=== PATIENT | female | born 1980 | race Two or more races ===

== ENCOUNTER 2020-02-24 09:50 | Inpatient (IN) | payer OTHER ==
--- NOTE | 2020-02-12 12:05 | NUR ---
INSURANCE A[employer]ER[employer] PRE AUTHORIZATION REFERENCE # [id number] EFFECTIVE DATES 02/24/20-02/26/20 NEXT REVIEW DATE SET FOR 02/25/2020
--- NOTE | 2020-02-23 21:14 | Pre-op HX & Phy Repo 2 SIG ---
DATE OF ADMISSION: 02/25/2020 The patient is scheduled for admission February 24, 2020. HISTORY OF PRESENT ILLNESS: The patient is a 39-year-old female in overall good health with a malfunctioning ileostomy, admitted to undergo preparation for surgery to create a Hernandez type of Kock pouch continent ileostomy. The patient has a past history of ulcerative colitis. In 2005, she underwent proctocolectomy with conventional Carlee ileostomy. She had difficulty managing with her stoma and in December 2015 [place] underwent creation of a Hernandez continent ileostomy. Following two years, she had no issues with her pouch and her routine was to intubate three times a day to evacuate stool and gas. 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 In November 2018, also in [place], her Hernandez continent ileostomy pouch was resected and a conventional ileostomy created. The surgeon made note that there was no evidence of Crohn disease, the pathology reviewed noted no evidence of inflammatory bowel disease. The patient was told and the report notes that she has an abundance of small intestine. She is having difficulties with the current ileostomy which is flushed to the skin and retracted. She has skin irritation, she must control on a daily basis. She must change her appliance at least twice a week. PAST MEDICAL HISTORY/MEDICATIONS: None. ALLERGIES: Morphine, Asacol, sulfa, intravenous and oral iodine. OPERATIONS: In addition to the above, she has had procedures for kidney stones and section. REVIEW OF SYSTEMS: 3, para 3. PHYSICAL EXAMINATION: VITAL SIGNS: The patient is 5 feet 4 inches, 119 pounds. She is arriving from out of state and will be examined upon arrival and dictated separately IMPRESSION: 1. Malfunctioning Carlee ileostomy with retracted stoma. 2. History of ulcerative colitis. 3. STATUS POST MULTIPLE ABDOMINAL OPERATIONS: 3.1. Proctocolectomy and Carlee ileostomy in 2005. 3.2. Hernandez continent ileostomy in December 2015. 3.3. Total abdominal hysterectomy in 2017. 3.4. Repair of pouch vaginal and enterocutaneous fistula with omental flap in September 2018. 3.5. Resection of Hernandez continent ileostomy with recurrent fistula and creation of another conventional Carlee ileostomy in November 17, 2018. (All these operations were done in other states). PLAN AND DISCUSSION: The patient will be admitted and will undergo insertion of a dual lumen PICC line and will have a bowel prep with intravenous hydration. During the prep, she will receive intravenous antibiotics starting the night before surgery and will receive subcutaneous heparin preoperatively. I will have a complete discussion in person with the patient when she arrives from out of state. I have already had a detailed discussion with her including the need to measure her intestinal length to make sure it is adequate to create a new Hernandez pouch in case that pouch fails and needs to be resected. I have had a discussion about all the risks to the general risks of surgery and the specific risks of the Hernandez continent ileostomy operation. She understands and agrees with the plan. Solomon Marcial M.D. DR: MELANY JOB#: [id number] CC:
[~2020-02-24] VITALS: Ht 162.6 cm; Wt 65.2 kg
--- NOTE | 2020-02-24 10:00 | NUR ---
NURSE NOTES: Patient arrived on unit. Assisted to hospital bed. Stable. AOx4. Breathing is even and unlabored. No visible signs of distress noted. Patient oriented to room, call light, and unit. Patient instructed to use call light for assistance, verbalized understanding. Ileo bag intact. Patient is in bed in locked and lowest position with call light within reach. All needs met at this time. WIll continue to monitor.
[2020-02-24] MEDS ORDERED: Heparin1,000 units/500ml Premix(Conc:2 units/ml) IV PRN (10:30)
[2020-02-24] MEDS ORDERED: Lidocaine 1% Plain 30 ml INJ PRN (10:30)
[2020-02-24] MEDS ORDERED: Zolpidem 5mg tab ORAL PRN (10:30)
[2020-02-24 11:14] LABS: INR 0.9 (0.9-1.1)
[2020-02-24 11:24] LABS: BASOPHILS % (AUTO) 0.8 % (0.0-2.0); EOSINOPHILS % (AUTO) 3.1 % (0.0-3.0); HEMOGLOBIN 12.6 G/DL (12.0-16.0); LYMPHOCYTES % (AUTO) 14.5 % (20.0-45.0); MEAN CORPUSCULAR VOLUME 88 FL (80-99); MONOCYTES % (AUTO) 6.5 % (1.0-10.0); NEUTROPHILS % (AUTO) 75.2 % (45.0-75.0); PLATELET COUNT 300 K/UL (150-450); RED BLOOD COUNT 4.34 M/UL (4.20-5.40); RED CELL DISTRIBUTION WIDTH 12.5 % (11.6-14.8); WHITE BLOOD COUNT 8.2 K/UL (4.8-10.8)
[2020-02-24 11:41] LABS: APPEARANCE,URINE CLEAR; BILIRUBIN, URINE NEGATIVE (NEGATIVE); GLUCOSE, URINE (UA) NEGATIVE (NEGATIVE); KETONES,URINE NEGATIVE (NEGATIVE); LEUKOCYTE ESTERASE ,URINE 2+ (NEGATIVE); NITRITE,URINE NEGATIVE (NEGATIVE); PH,URINE 5 (4.5-8.0); PROTEIN,URINE NEGATIVE (NEGATIVE); UROBILINOGEN,URINE NORMAL MG/DL (0.0-1.0)
[2020-02-24 11:48] LABS: ANION GAP 8 mmol/L (5-15); BLOOD UREA NITROGEN 18 mg/dL (7-18); CALCIUM 8.7 MG/DL (8.5-10.1); CARBON DIOXIDE 26 MMOL/L (21-32); CHLORIDE 105 MMOL/L (98-107); CREATININE 0.6 MG/DL (0.55-1.30); POTASSIUM 3.8 MMOL/L (3.5-5.1); SODIUM 139 MMOL/L (136-145)
[2020-02-24 11:53] LABS: ALANINE AMINOTRANSFERASE 17 U/L (12-78); ALBUMIN 4.1 G/DL (3.4-5.0); ALBUMIN/GLOBULIN RATIO 1.3 (1.0-2.7); ALKALINE PHOSPHATASE 91 U/L (46-116); ASPARTATE AMINO TRANSFERASE 18 U/L (15-37); BILIRUBIN,TOTAL 0.2 MG/DL (0.2-1.0)
[2020-02-24 12:00] VITALS: BP 98/67
[2020-02-24 12:01] LABS: COLOR,URINE YELLOW
[2020-02-24] MEDS: Neomycin Sulfate 500mg Tab ORAL SCH ×3 (12:02→20:18)
--- NOTE | 2020-02-24 12:06 | Anethesia Preoperative Eval ---
Anesthesia Pre-op PMH/ROS General Date of Evaluation: Feb 24, 2020 Time of Evaluation: 12:05 Anesthesiologist: mandy ASA Score: ASA 2 Mallampati Score Class I : Soft palate, uvula, fauces, pillars visible Class II: Soft palate, uvula, fauces visible Class III: Soft palate, base of uvula visible Class IV: Only hard plate visible Mallampati Classification: Class II Surgeon: jamila Diagnosis: Malfuctioning ileostomy Surgical Procedure: Hernandez continent ileostomy Family History: no anesthesia problems Allergies: Coded Allergies: IODINATED CONTRAST MEDIA (Verified Allergy, Severe, Shortness of Breath, 02/24/20) IODINE (Verified Allergy, Severe, Shortness of Breath, 02/24/20) MORPHINE (Verified Allergy, Intermediate, Hives, 02/24/20) SULFASALAZINE (Verified Allergy, Intermediate, Hives, 02/24/20) MESALAMINE (Verified Adverse Reaction, Mild, headache , 02/24/20) Medications: see eMAR Patient NPO?: Yes NPO Date: Feb 24, 2020 NPO Time: 00:01 Past Medical History Cardiovascular: Denies: HTN, CAD, PA, valve dz, arrhythmia, other Pulmonary: Denies: asthma, COPD, STEPHAN, other Gastrointestinal/Genitourinary: Reports: other - u. colitis; Denies: GERD, CRI, ESRD Neurologic/Psychiatric: Denies: dementia, CVA, depression/anxiety, TIA, other Endocrine: Denies: DM, hypothyroidism, steroids, other HEENT: Denies: cataract (L), cataract (R), glaucoma, [place] (L), [place] (R), other Hematology/Immune: Denies: anemia, DVT, bleeding disorder, other Musculoskeletal/Integumentary: Denies: OA, RA, DJD, DDD, edema, other PMH Narrative: 1. Malfunctioning Carlee ileostomy with retracted stoma. 2. History of ulcerative colitis. 3. STATUS POST MULTIPLE ABDOMINAL OPERATIONS: 3.1. Proctocolectomy and Carlee ileostomy in 2005. 3.2. Hernandez continent ileostomy in December 2015. 3.3. Total abdominal hysterectomy in 2017. 3.4. Repair of pouch vaginal and enterocutaneous fistula with omental flap in September 2018. 3.5. Resection of Hernandez continent ileostomy with recurrent fistula and creation of another conventional Carlee ileostomy in November 17, 2018. Anesthesia Pre-op Phys. Exam Physician Exam Last Vital Signs Date Time Temp Pulse Resp B/P (MAP) Pulse Ox O2 Delivery O2 Flow Rate FiO2 02/24/20 09:58 Room Air Constitutional: NAD Neurologic: CN 2-12 intact Cardiovascular: RRR Respiratory: CTA Gastrointestinal: S/NT/ND Airway Exam Mallampati Classification 2 Mallampati Score: Class II ROM: full Dentures: no upper, no lower Anesthesia Pre-op A/P Labs Hematology Test 02/24/20 10:40 White Blood Count 8.2 K/UL (4.8-10.8) Red Blood Count 4.34 M/UL (4.20-5.40) Hemoglobin 12.6 G/DL (12.0-16.0) Hematocrit 38.0 % (37.0-47.0) Mean Corpuscular Volume 88 FL (80-99) Mean Corpuscular Hemoglobin 29.0 PG (27.0-31.0) Mean Corpuscular Hemoglobin Concent 33.1 G/DL (32.0-36.0) Red Cell Distribution Width 12.5 % (11.6-14.8) Platelet Count 300 K/UL (150-450) Mean Platelet Volume 6.8 FL (6.5-10.1) Neutrophils (%) (Auto) 75.2 % (45.0-75.0) H Lymphocytes (%) (Auto) 14.5 % (20.0-45.0) L Monocytes (%) (Auto) 6.5 % (1.0-10.0) Eosinophils (%) (Auto) 3.1 % (0.0-3.0) H Basophils (%) (Auto) 0.8 % (0.0-2.0) Coagulation Test 02/24/20 10:40 Prothrombin Time 10.1 SEC (9.30-11.50) Prothromb Time International Ratio 0.9 (0.9-1.1) Activated Partial Thromboplast Time 25 SEC (23-33) Chemistry Test 02/24/20 10:40 Sodium Level 139 MMOL/L (136-145) Potassium Level 3.8 MMOL/L (3.5-5.1) Chloride Level 105 MMOL/L (98-107) Carbon Dioxide Level 26 MMOL/L (21-32) Anion Gap 8 mmol/L (5-15) Blood Urea Nitrogen 18 mg/dL (7-18) Creatinine 0.6 MG/DL (0.55-1.30) Estimat Glomerular Filtration Rate > 60 mL/min (>60) Glucose Level 95 MG/DL (74-106) Calcium Level 8.7 MG/DL (8.5-10.1) Total Bilirubin 0.2 MG/DL (0.2-1.0) Aspartate Amino Transf (AST/SGOT) 18 U/L (15-37) Alanine Aminotransferase (ALT/SGPT) 17 U/L (12-78) Alkaline Phosphatase 91 U/L (46-116) Total Protein 7.3 G/DL (6.4-8.2) Albumin 4.1 G/DL (3.4-5.0) Globulin 3.2 g/dL Albumin/Globulin Ratio 1.3 (1.0-2.7) Studies Pre-op Studies: EKG - SR Risk Assessment & Plan Assessment: Reassess patient the day of surgery Plan: General Status Change Before Surgery: No Pre-Antibiotics Drug: see chart Arminda Ziegler SERVICE TRANSFORMER REPAIR SUPERVISOR Feb 24, 2020 12:06
--- NOTE | 2020-02-24 12:08 | NUR ---
RADIOLOGY DEPT., CHEST X-RAY DONE.-P.DYE
--- NOTE | 2020-02-24 14:59 | General Progress Note ---
Progress Note Progress Note H&P dictated. Full discussion with patient regarding her surgery, possibility that new BCIR may not be possible in which case revision of existing ileostomy will be performed All questions answered. Solomon Marcial MD Feb 24, 2020 14:59
--- NOTE | 2020-02-24 15:16 | Diagnostic Imaging Report ---
Indication: Cough. Preoperative Technique: Portable frontal view of the chest Comparison: None Findings: Heart size and mediastinal contours are within normal limits for AP technique. There is no focal airspace consolidation, pneumothorax or pleural effusion. Osseous structures demonstrate no acute abnormality. Impression: No radiographic evidence of acute cardiopulmonary disease.
--- NOTE | 2020-02-24 15:22 | NUR ---
NURSE NOTES: Patient taken down for PICC placement.
--- NOTE | 2020-02-24 15:52 | Pre-Procedure Note/Attestation ---
Pre-Procedure Note/Attestation Complete Prior to Procedure Planned Procedure: not applicable Procedure Narrative: PICC line placement Indications for Procedure Pre-Operative Diagnosis: need iv access Attestation I attest that I discussed the nature of the procedure; its benefits; risks and complications; and alternatives (and the risks and benefits of such alternatives), prior to the procedure, with the patient (or the patient's legal pharmaceutical sales representative). I attest that I re-evaluated the patient just prior to the surgery and that there has been no change in the patient's H&P, except as documented below: Christopher Jefferson M.D. Feb 24, 2020 15:52
[2020-02-24 16:00] VITALS: BP 106/70
--- NOTE | 2020-02-24 16:13 | Diagnostic Imaging Report ---
Indications: Needs long-term IV access Technique: Ultrasound confirms patent compressible left basilic vein. Total sterile technique, including sterile probe cover and sterile gel, hat, mask,, sterile gown, large sterile drape, and preparation with 2% chlorhexidine utilized. Local anesthesia with 1% lidocaine. Under real-time ultrasound guidance, puncture left basilic vein using 21-gauge needle, documented and archived, passage 0.018 guidewire under direct fluoroscopy, which was used to determine appropriate catheter length, exchange for 4.5 [place] peel-away sheath. 4French dual-lumen power PICC cut to 40 cm. It was inserted through the peel-away sheath. Peel-away sheath and guidewire removed. Catheter fixed to the skin. Both catheter ports aspirated and flushed. Patient tolerated procedure well, without immediate complication. Digital radiograph documents satisfactory catheter tip position, at the cavoatrial junction. Total fluoroscopy time 5.9 seconds. Total fluoroscopy dose dose, 0.5. mGy. Total number fluoroscopic images obtained: 1 Impression: Successful placement of PICC under sonographic and fluoroscopic guidance, as described above. PICC line cleared for use.
--- NOTE | 2020-02-24 16:15 | Pre-op HX & Phy Repo 2 SIG ---
DATE OF ADMISSION: 02/24/2020 Please see previously dictated history. The patient has now arrived from out of state and is examined. PHYSICAL EXAMINATION: GENERAL: She is well developed and well nourished, 5 feet 4 inches, approximately 120 pounds. VITAL SIGNS: Within normal limits. HEENT: Within normal limits. LUNGS: Clear. HEART: Regular rhythm. BREASTS: Without masses. ABDOMEN: Soft. There is a midline scar from above the umbilicus to the pubis and a transverse suprapubic scar from section surgery. Her ileostomy stoma is in the upper portion of the right lower quadrant and is nearly flush to the skin having retracted. PELVIC: Done by primary care status post hysterectomy. RECTAL: Status post proctectomy. EXTREMITIES: Without edema. Pulses 2+ femoral to pedal bilaterally. NEUROLOGIC: Physiologic. IMPRESSION: 1. Malfunctioning Carlee ileostomy. 2. History of ulcerative colitis. 3. Status post multiple abdominal operations. 3.1. Proctocolectomy and Carlee ileostomy in 2005. 3.2. Hernandez continent ileostomy in 2015. 3.3. Total abdominal hysterectomy in 2017. 3.4. Repair of Hernandez pouch vaginal and enterocutaneous fistula with omental flap in September 2018. 3.5. Resection of Hernandez continent ileostomy due to recurrent fistula with creation of conventional Carlee ileostomy on 11/17/2018 (all these operations were done in other states). PLAN: I have had a full discussion with the patient regarding the nature of her condition, the nature of the surgery, indications, alternatives, options, and risks. I have discussed the primary option. It is to convert her malfunctioning retracted conventional ileostomy to a Hernandez type of Kock pouch continent ileostomy as it seems that from review of records, her problems developed after hysterectomy, and there has been no sign of Crohn's disease. I have discussed the potential that we will not be able to create a Hernandez pouch if she does not have adequate length of small bowel or if we do in fact encounter diseased small bowel. If that is the case, we will do a revision of her ileostomy to treat the retraction of the stoma. I have had a discussion of the general risks of surgery including bleeding, infection, injury to adjacent structures or organs, deep vein thrombosis despite prophylaxis, hernias, etc. And I have discussed the specific risks of the Hernandez pouch including the risk of fistulous, slipped valve, or other issues that could lead to revisions or additional surgery. All questions have been answered. The patient understands and agrees to proceed. Don Emily Marcial DR: FRANCIE JOB#: [id number] CC:
--- NOTE | 2020-02-24 16:30 | NUR ---
NURSE NOTES: PICC noted on ASHKAN, patent and flushed with NS. Dressing c/d/i.
--- NOTE | 2020-02-24 17:39 | NUR ---
RADIOLOGY NOTE: LEFT UPPER EXTREMITY PICC LINE PLACEMENT PLACEMENT BY DR. BEATRIS LIRIANO AT 1535 HRS. FA
[2020-02-24] MEDS: D5 1/2NS w/KCl 20mEq 1,000 ML IV SCH (17:40)
--- NOTE | 2020-02-24 19:30 | NUR ---
NURSE HAND-OFF: Important Events on Shift:picc insertion, hydration Patient Status: stable Diet: clear liquid, npo midnight tonight Pending Orders: n/a Pending Results/Labs:n/a Pending MD notification:n/a Latest Vital Signs: Temperature 97.8 , Pulse 75 , B/P 106 /70 , Respiratory Rate 20 , O2 SAT 98 , , O2 Flow Rate . Vital Sign Comment: n/a Latest Bray Fall Score: 15 Fall Risk: Low Risk Safety Measures: Call light Within Reach, Side Rails x2, Bed position Low and Locked. Fall Precautions: Report given to Caprice CASTANON.
--- NOTE | 2020-02-24 19:31 | NUR ---
NURSE NOTES: Received patient in no apparent distress. A&OX4. PICC line noted on left upper arm, patent and intact. Remind NPO midnight, patient fully understood. Daughter at bedside. Bed in lowest position. Call light within reach. Will continue to monitor.
[2020-02-24 20:00] VITALS: BP 108/70
[2020-02-24] MEDS: Dyna-Hex 2% Top Sol 2oz TOPIC SCH (20:19)
[2020-02-24] MEDS: Ampicillin/Sulbactam Sod 3 GM in NS 110 ML IVPB SCH (23:49)
[2020-02-25] VITALS (18 sets, daily range): BP systolic 81–111; BP diastolic 46–68
[2020-02-25] MEDS: D5 1/2NS w/KCl 20mEq 1,000 ML IV SCH ×3 (03:59→22:45)
[2020-02-25] MEDS ORDERED: Heparin 5000 units/ml inj SUBQ SCH (05:30)
[2020-02-25] MEDS: Ampicillin/Sulbactam Sod 3 GM in NS 110 ML IVPB SCH (05:36)
--- NOTE | 2020-02-25 06:15 | NUR ---
NURSE Note: Important Events on Shift: Nausea, after took oral antibiotic medication, Zofran was given twice. Urine output: 1400ml/ Stool output: 500ml kept NPO from midnight, No c/o pain. Patient Status: stable Diet: NPO Latest Vital Signs: Temperature 97.8 , Pulse 72 , B/P 98 /60 , Respiratory Rate 18 , O2 SAT 97 , Room Air, O2 Flow Rate . Vital Sign Comment: Latest Bray Fall Score: 15 Fall Risk: Low Risk Safety Measures: Call light Within Reach, Bed Alarm Zone 1, Side Rails Side Rails x2, Bed position Low and Locked. Fall Precautions: Patient Fall Education
[2020-02-25 06:42] LABS: BASOPHILS % (AUTO) 0.8 % (0.0-2.0); HEMATOCRIT 35.1 % (37.0-47.0); HEMOGLOBIN 11.7 G/DL (12.0-16.0); LYMPHOCYTES % (AUTO) 18.2 % (20.0-45.0); MEAN CORPUSCULAR VOLUME 85 FL (80-99); MONOCYTES % (AUTO) 5.9 % (1.0-10.0); NEUTROPHILS % (AUTO) 73.1 % (45.0-75.0); PLATELET COUNT 246 K/UL (150-450); RED BLOOD COUNT 4.12 M/UL (4.20-5.40); RED CELL DISTRIBUTION WIDTH 11.8 % (11.6-14.8); WHITE BLOOD COUNT 10.4 K/UL (4.8-10.8)
[2020-02-25] MEDS ORDERED: LR 1000ml 1,000 ML IVLG SCH (07:00)
[2020-02-25] MEDS ORDERED: Atropine Sulfate 0.4mg/ml inj IVP PRN (07:00)
[2020-02-25] MEDS ORDERED: DiphenhydrAMINE 50mg/ml Inj IVP PRN ×2 (07:00→10:15)
[2020-02-25] MEDS ORDERED: Acetaminophen (Non formulary) 100 ML IV ONE (07:00)
[2020-02-25] MEDS ORDERED: LORazepam Inj 2mg/ml 1ml IV PRN (07:00)
[2020-02-25] MEDS ORDERED: Labetalol 5mg/ml 20ml vial IV PRN (07:00)
[2020-02-25] MEDS ORDERED: Midazolam 2mg/2ml Inj IVP PRN (07:00)
[2020-02-25] MEDS ORDERED: Meperidine 25mg/0.5ml Inj (FOR RIGORS ONLY) IV PRN (07:00)
[2020-02-25] MEDS ORDERED: fentaNYL 100 mcg/2 mL IV PRN (07:00)
[2020-02-25] MEDS ORDERED: Metoclopramide 10mg/2ml Inj IVP PRN (07:00)
[2020-02-25 07:06] LABS: ALANINE AMINOTRANSFERASE 19 U/L (12-78); ALBUMIN 3.4 G/DL (3.4-5.0); ALBUMIN/GLOBULIN RATIO 1.1 (1.0-2.7); ALKALINE PHOSPHATASE 81 U/L (46-116); ANION GAP 11 mmol/L (5-15); ASPARTATE AMINO TRANSFERASE 20 U/L (15-37); BILIRUBIN,TOTAL 0.3 MG/DL (0.2-1.0); BLOOD UREA NITROGEN 7 mg/dL (7-18); CALCIUM 8.1 MG/DL (8.5-10.1); CARBON DIOXIDE 25 MMOL/L (21-32); CHLORIDE 107 MMOL/L (98-107); CREATININE 0.6 MG/DL (0.55-1.30); SODIUM 142 MMOL/L (136-145)
--- NOTE | 2020-02-25 07:06 | Immediate Post-Op Evaluation ---
Immediate Post-Op Evalulation Immediate Post-Op Evalulation Procedure: Revision of Continent Ileostomy Date of Evaluation: Feb 25, 2020 Time of Evaluation: 10:25 IV Fluids: 700 LR Blood Products: 0 Estimated Blood Loss: 40 Urinary Output: 200 Blood Pressure Systolic: 90 Blood Pressure Diastolic: 50 Pulse Rate: 74 Respiratory Rate: 16 O2 Sat by Pulse Oximetry: 100 Temperature (Fahrenheit): 97.3 Pain Score (1-10): 2 Nausea: No Vomiting: No Complications 0 Patient Status: awake, reacts, patent, none Hydration Status: adequate Drug: See Floor Given Within 1 Hr of Incision: Yes Tony Little MD Feb 25, 2020 07:06
[2020-02-25] MEDS ORDERED: Lidocaine 1% MPF 10mg/ml 5ml ONE ×2 (07:14→09:23)
[2020-02-25] MEDS ORDERED: Lidocaine 1% Plain 30 ml INJ ONE (07:14)
[2020-02-25] MEDS ORDERED: Sodium Chloride 10ml vial INJ ONE (07:14)
[2020-02-25] MEDS ORDERED: fentaNYL 100 mcg/2 mL IV ONE (07:15)
[2020-02-25] MEDS ORDERED: Bacitracin 50000 Units Vial ONE (07:17)
[2020-02-25] MEDS ORDERED: NeoSporin Gu Irrig 1ml Amp IRRIG ONE (07:17)
--- NOTE | 2020-02-25 07:17 | Pre-Procedure Note/Attestation ---
Pre-Procedure Note/Attestation Complete Prior to Procedure Planned Procedure: not applicable Procedure Narrative: Hernandez continent ileostomy, gastrostomy, possible revision of Carlee ileostomy Indications for Procedure Pre-Operative Diagnosis: malfunctioning Carlee ileostomy Attestation I attest that I discussed the nature of the procedure; its benefits; risks and complications; and alternatives (and the risks and benefits of such alternatives), prior to the procedure, with the patient (or the patient's legal account representative). I attest that, if there was a reasonable possibility of needing a blood transfusion, the patient (or the patient's legal account representative) was given the [facility] standardized written summary, pursuant to the [place] Blood Safety Act ([place] Health and Safety Code # 1645, as amended). I attest that I re-evaluated the patient just prior to the surgery and that there has been no change in the patient's H&P, except as documented below: none Solomon Marcial MD Feb 25, 2020 07:17
[2020-02-25] MEDS ORDERED: Rocuronium Bromide 50mg/5ml Inj IV ONE (07:25)
--- NOTE | 2020-02-25 07:30 | NUR ---
HAND-OFF: Report given to Ilana CASTANON.
--- NOTE | 2020-02-25 07:30 | NUR ---
NURSE NOTES: Patient is off unit.
[2020-02-25] MEDS ORDERED: NS Irrig 1000ml IRRIG ONE (08:02)
[2020-02-25] MEDS ORDERED: Neostigmine 1mg/ml 10ml Inj ONE (08:59)
[2020-02-25] MEDS ORDERED: Glycopyrrolate 0.2mg/ml 1ml Vial ONE (08:59)
[2020-02-25] MEDS ORDERED: Phenylephrine 10mg/ml Vial ONE (09:00)
[2020-02-25] MEDS ORDERED: Naloxone 0.4mg/ml Inj ONE (09:51)
[2020-02-25] MEDS ORDERED: D5 1/4NS w/KCl 20mEq 1,000 ML IV SCH (10:15)
[2020-02-25] MEDS ORDERED: LORazepam 1mg tab SL PRN (10:15)
[2020-02-25] MEDS ORDERED: Rate Change PCA 1 Each MISC PRN (10:15)
--- NOTE | 2020-02-25 10:20 | Brief Operative Note ---
Immediate Post Operative Note Operative Note Pre-op Diagnosis: malfunctioning Carlee ileostomy Procedure: same plus shortened small intestine (11 feet) Post-op Diagnosis: same Post-op Diagnosis: same as pre-op Findings: consistent w/pre-op dx studies Surgeon: jamila Additional Surgeons: marsha Anesthesiologist: juanito Anesthesia: general Specimen: yes - ileostomy, omentum, stoma hernia sac Complications: none Condition: stable Fluids: see anesthesia record Estimated Blood Loss: minimal Drains: JANAY Implant(s) used?: No Solomon Marcial MD Feb 25, 2020 10:20
--- NOTE | 2020-02-25 11:14 | Operative Note - Dictated ---
DATE OF OPERATION: 02/25/2020 SURGEON: Solomon Marcial MD ADDITIONAL SURGEON: Chance Horton MD ANESTHESIOLOGIST: Tony Little MD TYPE OF ANESTHESIA: General endotracheal. PREOPERATIVE DIAGNOSES: 1. Malfunctioning Carlee ileostomy with retracted stoma and parastomal hernia. 2. History of ulcerative colitis. 3. STATUS POST MULTIPLE ABDOMINAL OPERATIONS: 3.1. Proctocolectomy and Carlee ileostomy in 2005. 3.2. Hernandez continent ileostomy in December 2015. 3.3. Total abdominal hysterectomy in 2017. 3.4. Repair of pouch vaginal and pouch enterocutaneous fistula with omental flap in September 2018. 3.5. Resection of Hernandez continent ileostomy with recurrent fistula and creation of a conventional Carlee ileostomy on November 17, 2018. (All these operations were done in other states). POSTOPERATIVE DIAGNOSES: 1. Malfunctioning Carele ileostomy with retracted stoma and parastomal hernia. 2. History of ulcerative colitis. 3. STATUS POST MULTIPLE ABDOMINAL OPERATIONS: 3.1. Proctocolectomy and Carlee ileostomy in 2005. 3.2. Hernandez continent ileostomy in December 2015. 3.3. Total abdominal hysterectomy in 2017. 3.4. Repair of pouch vaginal and pouch enterocutaneous fistula with omental flap in September 2018. 3.5. Resection of Hernandez continent ileostomy with recurrent fistula and creation of a conventional Carlee ileostomy on November 17, 2018. (All these operations were done in other states). OPERATION PERFORMED: Laparotomy with revision of ileostomy and evacuation of loculated pelvic cysts, resection of omentum, and repair of parastomal hernia. FINDINGS: The patient had only 11 feet of small intestine when measured from ligament of Treitz to the stoma after taking down all the interloop adhesions. I felt this was not sufficient. If her new continent ileostomy pouch failed, she might develop by a partial or complete short-bowel syndrome. I had discussed this with the patient in advance. DESCRIPTION OF OPERATION: The patient was placed in the operating room under general endotracheal anesthesia with sequential compression device stockings and Roman catheter in place and having received preoperative intravenous antibiotics and subcutaneous heparin. She was prepped and draped in usual fashion. Previous midline incision was reopened from above the umbilicus to the pubis. There were minimal adhesions to the anterior abdominal wall. There were moderate interloop adhesions. The omentum was adherent deeply into the pelvis and there were 2 loculated cysts, one contained over 50 mL of fluid, the cyst was completely taken down, and the other one was smaller and also evacuated. The patient's ovaries were normal. She is status post hysterectomy. The omentum was taken down off of the pelvic floor and resected using the Thunderbeat vessel sealing electrosurgical device. I measured the bowel from the ligament of Treitz to the stoma and then backwards measuring twice with a maximum bowel length under stretch of 11 feet. This was not adequate to create a new continent ileostomy. The stoma was dismantled on the right side of the abdomen and the old stoma resected and some of the mesentery taken for several centimeters from the new bowel edge with the Thunderbeat. I considered relocating the stoma to the left side, but I was able to strip out the hernia sac, close the fascia and narrow the skin orifice. We then brought back the end of the ileum and created an everted stoma with multiple interrupted 3-0 chromic sutures. The patency was confirmed with digital palpation and pool suction. The stoma was well perfused. The abdomen was inspected. The bladder and ureters had been protected. The pelvis was irrigated and hemostasis seemed to be secure. The bowel loops were replaced anatomically. The midline incision was closed with #1 looped PDS, antibiotic irrigation utilized, and the skin closed with quan. A 1-1/4 inch ileostomy appliance was placed over the stoma followed by dry sterile dressings. I did insert a 19 mm round Yossi drain through a stab incision low in the left lower quadrant into the deep pelvis to help prevent loculated cysts from developing again. That drain was sutured to the skin with 2-0 nylon. The patient tolerated the procedure well and left the operating room in good condition. Solomon Marcial M.D. DR: Rick JOB#: [id number] CC:
[2020-02-25] MEDS ORDERED: Metoclopramide 10mg/2ml Inj ONE (11:16)
[2020-02-25] MEDS ORDERED: PCA HYDROmorphone 1mg/ml 30 ML IV PRN (11:30)
[2020-02-25] MEDS ORDERED: Naloxone 0.4mg/ml Inj IVP PRN (11:30)
--- NOTE | 2020-02-25 11:45 | NUR ---
NURSE NOTES: Patient arrived on unit. Stable, arousable to verbal stimuli. Breathing is even and unlabored on 3L oxygen via nc. No visible signs of distress noted. Surgical dressing c/d/i. PICC patent and running IVF and QUALITATIVE FIELD COORDINATOR. JANAY compressed and draining red output. Ileostomy bag intact. F/C patent and draining yellow urine. Patient is oriented to room, call light, and unit. Patient instructed to use call light for assistance, verbalized understanding. All safety measures provided. Patient is in bed in locked and lowest position with call light within reach and trapeze overhead. Will continue to monitor.
[2020-02-25] MEDS: Ampicillin/Sulbactam Sod 3 GM in NS 110 ML IV SCH ×3 (12:06→23:59)
[2020-02-25] MEDS ORDERED: NS 500ML ONE (13:44)
[2020-02-25] MEDS ORDERED: Tubing IV Secondary IV ONE (13:44)
--- NOTE | 2020-02-25 13:53 | NUR ---
CASE MANAGEMENT: INITIAL REVIEW 39YR OLD FEMALE FROM HOME CC:COLOSTOMY MALFUNCTION; UNABLE TO EVACUATE STOOL SI:MALFUNCTIONING WILLIAM ILEOSTOMY . FISTULA 97.8 72 18 98/60 97% ON RA IS:IV FLAGYL Q6HR IV AMPICILLIN Q6HR HEPARIN SQ X1 PICC LINE PLACEMENT CHEST X-RAY- No radiographic evidence of acute cardiopulmonary disease. \: 3E MED SURG UNIT DCP: HOME WHEN STABLE PLAN: NPO CONT ENCOURAGE INCENTIVE SPIROMETER NEURO CHECKS DVT PROPHYLAXIS ENCOURAGE AMBULATION CASE MANAGEMENT: REVIEW 02/25/20 SI:MALFUNCTIONING WILLIAM ILEOSTOMY . FISTULA 97.6 87 18 98/53 100% ON RA IS:IN SURGERY NOW REVISION OF CONTINENT ILEOSTOMY \: 3E MED SURG UNIT DCP: HOME WHEN STABLE PLAN: NPO ADVANCE DIET TOLERATED CONT ENCOURAGE INCENTIVE SPIROMETER NEURO CHECKS DVT PROPHYLAXIS ENCOURAGE AMBULATION
--- NOTE | 2020-02-25 14:22 | NUR ---
*-* INSURANCE *-* UPDATED CLINICALS AND REVIEWS HAVE BEEN FAXED TO: [facility] FAX:[phone] REF# [id number] Addendum: 02/25/20 at 1425 by MAX SHAFFER LVN CM LEFT A VM FOR LASHELL TO CONFIRM FAX RECEIVED T:[phone] EXT [id number]
--- NOTE | 2020-02-25 18:52 | NUR ---
NURSE NOTES: Ileo: approximately 5cc bloody output. UO: 300cc yellow/reuben urine output. JANAY: 105cc bloody output. Patient is comfortable on DIESEL ENGINE PIPE FITTER and with nausea medication. Surgical dressing c/d/i.
[2020-02-25] MEDS: PCA shift volume MISC SCH (19:00)
--- NOTE | 2020-02-25 19:37 | NUR ---
NURSE HAND-OFF: Important Events on Shift:s/p surgery Patient Status: stable Diet: npo Pending Orders: n/a Pending Results/Labs:am labs Pending MD notification:n/a Latest Vital Signs: Temperature 97.0 , Pulse 80 , B/P 91 /61 , Respiratory Rate 16 , O2 SAT 100 , Room Air, O2 Flow Rate 3 . Vital Sign Comment: n/a Latest Bray Fall Score: 15 Fall Risk: Low Risk Safety Measures: Call light Within Reach, Bed Alarm Zone 1, Side Rails Side Rails x2, Bed position Low and Locked. Fall Precautions: Patient Fall Education Report given to Tash CASTANON.
--- NOTE | 2020-02-25 19:56 | NUR ---
NURSES NOTE: Pt in bed, A/OX4, denies pain currently. No outward s/s of distress noted. Breathing pattern is even and unlabored on NC 3L. BUILDING CARPENTER HELPER pump Dilaudid- effective. RLQ ileo bag in place. Roman in place, draining to gravity. JANAY drain engaged. Dressing anterior abdominal area, clean, dry and intact. ASHKAN PICC line free of s/s of infection or irritation. IVF fluids draining without incident. Bed at lowest level, call light within reach. Pt will continue to be monitored.
[2020-02-25] MEDS ORDERED: PCA Education Pamphlet MISC ONE (20:00)
[2020-02-25] MEDS: Dyna-Hex 2% Top Sol 2oz TOPIC SCH (20:42)
[2020-02-25] MEDS: LORazepam 1mg tab SL PRN ×2 (22:21→23:07)
[2020-02-26] VITALS: BP 98/60
[2020-02-26] MEDS: HYDROmorphone 1mg/ml Carpuject SUBQ PRN ×2 (00:04→20:03)
[2020-02-26 04:00] VITALS: BP 100/66
[2020-02-26] MEDS: Ampicillin/Sulbactam Sod 3 GM in NS 110 ML IV SCH ×3 (05:33→17:08)
[2020-02-26 06:27] LABS: HEMATOCRIT 33.2 % (37.0-47.0); HEMOGLOBIN 11.1 G/DL (12.0-16.0); MEAN CORPUSCULAR VOLUME 84 FL (80-99); PLATELET COUNT 222 K/UL (150-450); RED BLOOD COUNT 3.95 M/UL (4.20-5.40); RED CELL DISTRIBUTION WIDTH 11.8 % (11.6-14.8)
[2020-02-26 06:29] LABS: ANION GAP 4 mmol/L (5-15); BLOOD UREA NITROGEN 5 mg/dL (7-18); CALCIUM 7.8 MG/DL (8.5-10.1); CARBON DIOXIDE 28 MMOL/L (21-32); CHLORIDE 105 MMOL/L (98-107); CREATININE 0.5 MG/DL (0.55-1.30); POTASSIUM 4.4 MMOL/L (3.5-5.1); SODIUM 137 MMOL/L (136-145)
[2020-02-26 06:30] LABS: WHITE BLOOD COUNT 23.1 K/UL (4.8-10.8)
--- NOTE | 2020-02-26 07:15 | NUR ---
NURSE HAND-OFF: Important Events on Shift:[WBC 22.3. Davie blood twice. First through PICC, then venipuncture. Oncoming nurse made aware as well as charge. Will let Schiller know upon arrival. ] Patient Status: [STABLE] Diet: [NPO] Pending Orders: [NONE] Pending Results/Labs:[NONE] Pending MD notification:[YES, WBC] Latest Vital Signs: Temperature 97.7 , Pulse 80 , B/P 100 /66 , Respiratory Rate 18 , O2 SAT 98 , Nasal Cannula, O2 Flow Rate 3.0 . Vital Sign Comment: [Within normal limits; afebrile] Latest Bray Fall Score: 15 Fall Risk: Low Risk Safety Measures: Call light Within Reach, Bed Alarm Zone 1, Side Rails Side Rails x2, Bed position Low and Locked. Fall Precautions: Patient Fall Education Report given to [LG Preciado].
[2020-02-26 07:22] LABS: HEMATOCRIT 35.5 % (37.0-47.0); MEAN CORPUSCULAR VOLUME 84 FL (80-99); PLATELET COUNT 262 K/UL (150-450); RED BLOOD COUNT 4.21 M/UL (4.20-5.40); RED CELL DISTRIBUTION WIDTH 11.7 % (11.6-14.8)
[2020-02-26] MEDS: PCA shift volume MISC SCH ×2 (07:22→19:10)
--- NOTE | 2020-02-26 07:27 | NUR ---
NURSE NOTES: Patient is in bed awake and able to verbalize needs. Stable. Denies pain or SOB at this time. Breathing is even and unlabored on 2L oxygen via NC. PICC patent and running IVF and IN FLIGHT REFUELING OPERATOR as ordered. Patient stated IN FLIGHT REFUELING OPERATOR is helping control pain. F/C patent and draining yellow urine. JANAY compressed and draining bloody output. Patient instructed to use call light for assistance, verbalized understanding. All safety measures provided, trapeze overhead. Patient is in bed in locked and lowest position with call light within reach. All needs met at this time. Will continue to monitor.r.
[2020-02-26 07:28] LABS: WHITE BLOOD COUNT 22.3 K/UL (4.8-10.8)
[2020-02-26 08:00] VITALS: BP 105/64
--- NOTE | 2020-02-26 08:16 | General Progress Note ---
Progress Note Progress Note AVSS comfortable with diluadid PASTRY WRAPPER. Chest clear cor reg rhythm Abdomen soft, mild distention, incision clean, stoma pink 12 hours overnight: urine 700 Ileostomy - nil JANAY 20cc WBC 22,300 Hgb 12 BUN 5 Cr 0.5 Imp: Ileus Plan; NPO mobilize f/u labs Solomon Marcial MD Feb 26, 2020 08:16
[2020-02-26] MEDS ORDERED: Rate Change PCA 1 Each MISC PRN (08:30)
[2020-02-26] MEDS ORDERED: PCA HYDROmorphone 1mg/ml 30 ML IV PRN (08:30)
[2020-02-26] MEDS ORDERED: Naloxone 0.4mg/ml Inj IVP PRN (08:30)
--- NOTE | 2020-02-26 08:48 | 48 Hour Post Anesthesia Eval ---
Post Anesthesia Evaluation Procedure: Revision of Continent Ileostomy Date of Evaluation: Feb 26, 2020 Time of Evaluation: 08:47 Blood Pressure Systolic: 105 0: 64 Pulse Rate: 85 Respiratory Rate: 17 Temperature (Fahrenheit): 97.5 O2 Sat by Pulse Oximetry: 98 Airway: patent Nausea: No Vomiting: No Pain Intensity: 2 Hydration Status: adequate Cardiopulmonary Status: Stable Mental Status/LOC: patient returned to baseline Follow-up Care/Observations: 0 Post-Anesthesia Complications: 0 Follow-up care needed: N/A Tony Little MD Feb 26, 2020 08:48
--- NOTE | 2020-02-26 09:00 | NUR ---
NURSE NOTES: Pt ambulated in room with RN. tolerated well. Assisted back to bed without incident. Will continue to monitor.
[2020-02-26] MEDS: D5 1/2NS w/KCl 20mEq 1,000 ML IV SCH ×2 (09:23→21:50)
[2020-02-26 12:00] VITALS: BP 96/58
--- NOTE | 2020-02-26 12:55 | NUR ---
CASE MANAGEMENT: REVIEW 02/26/20 SI:ILEUS . 02/24 S/P RESECTION OF OMENTU/REVISION OF ILEOSTOMY/ EXCISION OF PELVIC CYST MALFUNCTIONING WILLIAM ILEOSTOMY . FISTULA 97.5 85 17 105/64 98% ON RA WBC 22.3 BUN 5 BG 143 CA+ 7.8 IS:IV AMPICILLIN Q6HR IV FLAGYL Q6HR IV D5/LYTES @100ML/HR GRASSROOTS ORGANIZER DILAUDID PROTOCOL \: 3E MED SURG UNIT DCP: HOME WHEN STABLE PLAN: NPO ADVANCE DIET TOLERATED CONT ENCOURAGE INCENTIVE SPIROMETER NEURO CHECKS DVT PROPHYLAXIS ENCOURAGE AMBULATION BID
--- NOTE | 2020-02-26 15:44 | NUR ---
NURSE NOTES: Gerard wound care nurse at bedside.
[2020-02-26 16:00] VITALS: BP 115/96
--- NOTE | 2020-02-26 18:33 | NUR ---
NURSE NOTES: Ileo: 10cc bloody liquid output. UO: 1200cc reuben urine output. JANAY: 65cc bloody output. Patient ambulated with RN. Patient stated that MARZIPAN MOLDER helps with pain and did not need breakthrough pain during shift.
--- NOTE | 2020-02-26 19:15 | NUR ---
NURSE HAND-OFF: Important Events on Shift:pain management, hydration, I&O Patient Status: stable Diet: npo Pending Orders: n/a Pending Results/Labs:n/a Pending MD notification:n/a Latest Vital Signs: Temperature 97.4 , Pulse 88 , B/P 115 /96 , Respiratory Rate 18 , O2 SAT 98 , Room Air, O2 Flow Rate 3.0 . Vital Sign Comment: n/a Latest Bray Fall Score: 15 Fall Risk: Low Risk Safety Measures: Call light Within Reach, Side Rails x2, Bed position Low and Locked. Fall Precautions: Patient Fall Education Report given to Tash CASTANON.
[2020-02-26 20:00] VITALS: BP 112/64
[2020-02-26] MEDS: Dyna-Hex 2% Top Sol 2oz TOPIC SCH (20:00)
--- NOTE | 2020-02-26 20:15 | NUR ---
NURSES NOTE: Pt in bed, A/OX4, states pain is 7/10 in abdomen. Dilaudid 1mg sub-q administered for break through pain. No outward s/s of distress noted. Breathing pattern is even and unlabored on RA. TENTER FRAME BACK TENDER pump- Dilaudid noted. Dressing- abdomen, is clean dry and intact. Last changed at 1700 by day shift RN. Roman draining to gravity. Ileo in place, to be flushed Q3H. All due medications will be given. Bed at lowest level, call light within reach. Pt will continue to be monitored.
[2020-02-27] MEDS: Ampicillin/Sulbactam Sod 3 GM in NS 110 ML IV SCH ×5 (00:23→23:30)
[2020-02-27 04:00] VITALS: BP 105/67
[2020-02-27] MEDS: D5 1/2NS w/KCl 20mEq 1,000 ML IV SCH ×3 (05:53→20:04)
[2020-02-27 06:18] LABS: BASOPHILS % (AUTO) 2.3 % (0.0-2.0); EOSINOPHILS % (AUTO) 0.2 % (0.0-3.0); HEMATOCRIT 31.8 % (37.0-47.0); HEMOGLOBIN 10.5 G/DL (12.0-16.0); MEAN CORPUSCULAR VOLUME 85 FL (80-99); MONOCYTES % (AUTO) 6.5 % (1.0-10.0); PLATELET COUNT 185 K/UL (150-450); RED BLOOD COUNT 3.72 M/UL (4.20-5.40); WHITE BLOOD COUNT 13.5 K/UL (4.8-10.8)
[2020-02-27 07:05] LABS: ALANINE AMINOTRANSFERASE 14 U/L (12-78); ALBUMIN 2.9 G/DL (3.4-5.0); ALBUMIN/GLOBULIN RATIO 1.1 (1.0-2.7); ALKALINE PHOSPHATASE 64 U/L (46-116); ANION GAP 5 mmol/L (5-15); ASPARTATE AMINO TRANSFERASE 19 U/L (15-37); BILIRUBIN,TOTAL 0.2 MG/DL (0.2-1.0); BLOOD UREA NITROGEN 5 mg/dL (7-18); CALCIUM 8.2 MG/DL (8.5-10.1); CARBON DIOXIDE 30 MMOL/L (21-32); CHLORIDE 108 MMOL/L (98-107); CREATININE 0.6 MG/DL (0.55-1.30); POTASSIUM 4.2 MMOL/L (3.5-5.1); SODIUM 143 MMOL/L (136-145)
--- NOTE | 2020-02-27 07:20 | NUR ---
NURSE NOTES: Received report from Tash CASTANON, rounds made, pt standing up by the bedside with steady gait denies any dizziness or light headed feeling , a/ox4, breaths regular and unlabored on RA , pt has a Picc on the ASHKAN with IVF intact patent asymptomatic, pt denies any pain at this time , pt on DEVELOPER ADVOCATE Dilaudid for pain management , Carlee ileo on the R lower quad , bag intact , abd dressing clean intact , Pelon drain on the L lower quad , bulb deflated for negative suction, Roman draining to gravity , bed in low loked position, call light with in reach will continue to Monitor
[2020-02-27] MEDS: PCA shift volume MISC SCH ×2 (07:25→19:10)
--- NOTE | 2020-02-27 07:52 | NUR ---
NURSE HAND-OFF: Important Events on Shift:[NONE] Patient Status: [STABLE] Diet: [NPO] Pending Orders: [NONE] Pending Results/Labs:[NONE- WBC TRENDING DOWN] Pending MD notification:[NONE] Latest Vital Signs: Temperature 97.6 , Pulse 90 , B/P 105 /67 , Respiratory Rate 18 , O2 SAT 98 , Room Air, O2 Flow Rate 3.0 . Vital Sign Comment: [WNL] Latest Bray Fall Score: 15 Fall Risk: Low Risk Safety Measures: Call light Within Reach, Bed Alarm Zone 1, Side Rails Side Rails x2, Bed position Low and Locked. Fall Precautions: Patient Fall Education Report given to [LG MO].
[2020-02-27 08:00] VITALS: BP 104/69
[2020-02-27] MEDS: DiphenhydrAMINE 50mg/ml Inj IVP PRN ×4 (08:24→21:53)
[2020-02-27] MEDS ORDERED: Rate Change PCA 1 Each MISC PRN (09:15)
--- NOTE | 2020-02-27 09:30 | General Progress Note ---
Progress Note Progress Note AVSS Now feeling devastated about not having a Hernandez pouch. Full discussion both pre-op and again now regarding inadequate bowel length and risk of short bowel syndrome if pouch fails. Ambulating on her own Abdomen soft, mildly distended, incision clean, stoma pink Urine 1900 Ileostomy scant JANAY drain 90 serosang WBC down 13,500 Hgb 10.5 Imp: Ileus Acute depression Plan: continue npo, Roman, DIRECTOR OF QUALITY reassured/supported/encouraged Solomon Marcial MD Feb 27, 2020 09:30
[2020-02-27 12:00] VITALS: BP 100/64
[2020-02-27 16:00] VITALS: BP 106/71
[2020-02-27] MEDS ORDERED: PCA HYDROmorphone 1mg/ml 30 ML IV PRN (17:45)
--- NOTE | 2020-02-27 19:55 | NUR ---
NURSE NOTES: Pt remains stable , pt c/o of nausea and itching relieved by medication, pt only used SENIOR PAINTER for pain management. Carlee Ileo changed by wound nurse , unable to get Ileo output ,bag was dumped in trash after changing. wound nurse left list of supples to be ordered by MD will endorse
[2020-02-27 20:00] VITALS: BP 114/78
[2020-02-27] MEDS: Dyna-Hex 2% Top Sol 2oz TOPIC SCH (20:04)
[2020-02-27] MEDS: LORazepam 1mg tab SL PRN (23:43)
[2020-02-28] VITALS: BP 109/69
[2020-02-28] MEDS: DiphenhydrAMINE 50mg/ml Inj IVP PRN ×5 (02:59→21:24)
[2020-02-28 04:00] VITALS: BP 124/89
[2020-02-28 05:41] LABS: BASOPHILS % (AUTO) 0.8 % (0.0-2.0); EOSINOPHILS % (AUTO) 4.3 % (0.0-3.0); HEMATOCRIT 35.6 % (37.0-47.0); HEMOGLOBIN 11.9 G/DL (12.0-16.0); LYMPHOCYTES % (AUTO) 16.2 % (20.0-45.0); MEAN CORPUSCULAR VOLUME 85 FL (80-99); MONOCYTES % (AUTO) 10.8 % (1.0-10.0); NEUTROPHILS % (AUTO) 67.8 % (45.0-75.0); PLATELET COUNT 223 K/UL (150-450); RED BLOOD COUNT 4.18 M/UL (4.20-5.40); RED CELL DISTRIBUTION WIDTH 12.1 % (11.6-14.8); WHITE BLOOD COUNT 8.5 K/UL (4.8-10.8)
[2020-02-28 05:47] LABS: ANION GAP 3 mmol/L (5-15); BLOOD UREA NITROGEN 4 mg/dL (7-18); CARBON DIOXIDE 32 MMOL/L (21-32); CHLORIDE 103 MMOL/L (98-107); CREATININE 0.7 MG/DL (0.55-1.30); POTASSIUM 3.6 MMOL/L (3.5-5.1); SODIUM 138 MMOL/L (136-145)
[2020-02-28] MEDS: Ampicillin/Sulbactam Sod 3 GM in NS 110 ML IV SCH ×4 (05:52→23:07)
--- NOTE | 2020-02-28 06:27 | NUR ---
NURSE HAND-OFF: Important Events on Shift: ileo output is 10 mL. Urine is 1200 Patient Status: stable Diet: NPO x ice chips and meds Pending Orders: [] Pending Results/Labs:[] Pending MD notification:[] Latest Vital Signs: Temperature 98.1 , Pulse 118 , B/P 124 /89 , Respiratory Rate 18 , O2 SAT 100 , Room Air, O2 Flow Rate 3.0 . Vital Sign Comment: [] Latest Bray Fall Score: 15 Fall Risk: Low Risk Safety Measures: Call light Within Reach, Bed Alarm Zone 1, Side Rails Side Rails x2, Bed position Low and Locked. Fall Precautions: Patient Fall Education Report given to Meet CASTANON
[2020-02-28] MEDS: PCA shift volume MISC SCH ×2 (07:16→19:00)
--- NOTE | 2020-02-28 07:30 | NUR ---
NURSE NOTES: Patient lying in bed awake. Complain of pain 3/10 on abdomen and on OFFICE MACHINE TECHNICIAN for pain management. Will continue to monitor. Surgical dressing and PICC line dressing intact and dry. Roman catheter and JANAY x1 patent and draining well. Bed lowest position. Call light within reach. Will continue to monitor.
[2020-02-28 08:00] VITALS: BP 108/69
[2020-02-28] MEDS ORDERED: PCA HYDROmorphone 1mg/ml 30 ML IV PRN ×2 (10:15→11:30)
[2020-02-28] MEDS ORDERED: Rate Change PCA 1 Each MISC PRN (11:30)
--- NOTE | 2020-02-28 11:30 | General Progress Note ---
Progress Note Progress Note AVSS Ambulating in room. Pain controlled Abdomen soft, mild distention, incision clean, stoma pink Urine 4100 ileostomy scant JANAY 35 serous WBC 8500 Hgb 11.9 BMP ok Imp: Ileus Plan; d/c basal infusion of CLINICAL RESEARCH MANAGER continue npo, Solomon López MD Feb 28, 2020 11:30
[2020-02-28 12:00] VITALS: BP 120/79
[2020-02-28] MEDS: D5 1/2NS w/KCl 20mEq 1,000 ML IV SCH ×2 (12:22→20:04)
--- NOTE | 2020-02-28 15:23 | NUR ---
NURSE NOTES: Patient ambulated with RN assist. No complain of dizziness. Patient tolerated activity well. Will continue to monitor.
[2020-02-28 16:00] VITALS: BP 112/73
--- NOTE | 2020-02-28 19:30 | NUR ---
NURSE HAND-OFF: Important Events on Shift: D/C continue dose of DYNAMIC BALANCER Patient Status: Stable Diet: NPO Pending Orders: N/A Pending Results/Labs: CBC, CMP, Mg, Phos on 02/29/20 Pending MD notification: N/A Latest Vital Signs: Temperature 98.0 , Pulse 105 , B/P 112 /73 , Respiratory Rate 16 , O2 SAT 98 , Room Air, O2 Flow Rate 3.0 . Vital Sign Comment: Stable Latest Bray Fall Score: 15 Fall Risk: Low Risk Safety Measures: Call light Within Reach, Bed Alarm Zone 1, Side Rails Side Rails x2, Bed position Low and Locked. Fall Precautions: Yellow Socks Door Sign Patient Fall Education Report given to Dg CASTANON. Patient in stable condition.
--- NOTE | 2020-02-28 19:41 | NUR ---
NURSE NOTES: Received report from Meet CASTANON. Patient seen in room sitting and watching TV. In no apparent distress.
[2020-02-28 20:00] VITALS: BP 116/75
[2020-02-28] MEDS: Dyna-Hex 2% Top Sol 2oz TOPIC SCH (20:04)
[2020-02-28] MEDS: HYDROmorphone 1mg/ml Carpuject SUBQ PRN (23:08)
[2020-02-29] VITALS: BP 112/79
[2020-02-29] MEDS: DiphenhydrAMINE 50mg/ml Inj IVP PRN ×5 (01:36→20:54)
[2020-02-29 04:00] VITALS: BP 106/71
[2020-02-29] MEDS: Ampicillin/Sulbactam Sod 3 GM in NS 110 ML IV SCH ×4 (05:16→23:44)
[2020-02-29 06:35] LABS: BASOPHILS % (AUTO) 0.9 % (0.0-2.0); EOSINOPHILS % (AUTO) 6.6 % (0.0-3.0); HEMATOCRIT 35.8 % (37.0-47.0); HEMOGLOBIN 11.8 G/DL (12.0-16.0); LYMPHOCYTES % (AUTO) 12.7 % (20.0-45.0); MEAN CORPUSCULAR VOLUME 84 FL (80-99); MONOCYTES % (AUTO) 10.7 % (1.0-10.0); NEUTROPHILS % (AUTO) 69.2 % (45.0-75.0); PLATELET COUNT 209 K/UL (150-450); RED BLOOD COUNT 4.24 M/UL (4.20-5.40); RED CELL DISTRIBUTION WIDTH 11.5 % (11.6-14.8); WHITE BLOOD COUNT 7.8 K/UL (4.8-10.8)
--- NOTE | 2020-02-29 06:36 | NUR ---
NURSE HAND-OFF: Important Events on Shift: throughout shift, patient requesting benadryl and zofran almost round the clock, gave compazine x1 for nausea and per pt request, Gave dilaudid sq x1 for breakthrough pain, patient says that she is having a lot of gas, which causes pain and discomfort. Total ileo output is 40 ml. JANAY 10 mL. Urine 1450 mL Patient Status: Stable Diet: NPO X ice chips meds Pending Orders: [] Pending Results/Labs:[] Pending MD notification:[] Latest Vital Signs: Temperature 98.4 , Pulse 102 , B/P 106 /71 , Respiratory Rate 20 , O2 SAT 97 , Room Air, O2 Flow Rate 3.0 . Vital Sign Comment: [] Latest Bray Fall Score: 15 Fall Risk: Low Risk Safety Measures: Call light Within Reach, Bed Alarm Zone 1, Side Rails Side Rails x2, Bed position Low and Locked. Fall Precautions: Yellow Socks Door Sign Patient Fall Education Report given to
[2020-02-29] MEDS: PCA shift volume MISC SCH ×2 (07:00→19:12)
[2020-02-29 07:02] LABS: ALANINE AMINOTRANSFERASE 21 U/L (12-78); ALBUMIN 2.8 G/DL (3.4-5.0); ALBUMIN/GLOBULIN RATIO 0.9 (1.0-2.7); ALKALINE PHOSPHATASE 77 U/L (46-116); ANION GAP 8 mmol/L (5-15); ASPARTATE AMINO TRANSFERASE 31 U/L (15-37); BILIRUBIN,TOTAL 0.4 MG/DL (0.2-1.0); BLOOD UREA NITROGEN 5 mg/dL (7-18); CALCIUM 8.7 MG/DL (8.5-10.1); CARBON DIOXIDE 28 MMOL/L (21-32); CHLORIDE 103 MMOL/L (98-107); CREATININE 0.6 MG/DL (0.55-1.30); PHOSPHORUS 3.7 MG/DL (2.5-4.9); POTASSIUM 3.9 MMOL/L (3.5-5.1); SODIUM 139 MMOL/L (136-145)
[2020-02-29 08:00] VITALS: BP 107/71
--- NOTE | 2020-02-29 08:00 | NUR ---
NURSE NOTES: Patient is in bed awake and able to verbalize needs. Stable. Patient appears fatigued. Breathing is even and unlabored. No visible signs of distress. F/C patent and draining reuben urine. JANAY draining a small amount of bloody output. Ileo appliance intact. PICC patent and running IVF and PSYCHOLOGIST MILITARY PERSONNEL as ordered. Patient instructed to use call light for assistance, verbalized understanding. All needs met at this time. Patient is in bed in locked and lowest position with call light within reach and trapeze overhead. Will continue to monitor.
[2020-02-29] MEDS: D5 1/2NS w/KCl 20mEq 1,000 ML IV SCH ×2 (08:05→17:38)
--- NOTE | 2020-02-29 09:23 | General Progress Note ---
Progress Note Progress Note AVSS Pulse 102 Feeling better emotionally. Ambulated in hallways Abdomen soft, incision clean, stoma pink Urine 3625 Ileostomy 65cc enteric JANAY drain 20cc WBC 7800 Hgb 11.8 chems okay except albumin 2.8 Imp: ileus Plan: d/c Flagyl continue npo, Roman, Unasyn, FORM MAKER Solomon Marcial MD Feb 29, 2020 09:23
[2020-02-29] MEDS ORDERED: Simethicone 80mg tab ORAL PRN (09:30)
[2020-02-29] MEDS ORDERED: Rate Change PCA 1 Each MISC PRN (09:30)
[2020-02-29] MEDS ORDERED: PCA HYDROmorphone 1mg/ml 30 ML IV PRN (10:00)
--- NOTE | 2020-02-29 11:16 | NUR ---
RD ASSESSMENT & RECOMMENDATIONS SEE CARE ACTIVITY FOR COMPLETE ASSESSMENT DAILY ESTIMATED NEEDS: Needs based on Surgery 57.6kg 25-30 kcals/kg 5453-3381 total kcals 1-2 g protein/kg 58-115 g total protein 25-30 mL/kg 4477-8426 total fluid mLs NUTRITION DIAGNOSIS: Altered GI fxn related to ileostomy revision as evidenced by pt w/ h/o BCIR, now w/ Carlee ileo, s/p laparotomy w/ revision, w/ ileus, NPO status. CURRENT DIET: NPO PO DIET RECOMMENDATIONS: Clears as able TPN Comment: Consult RD w/ continued ileus/ NPO status ADDITIONAL RECOMMENDATIONS: 1) Obtain a standing weight as able 2) Monitor lytes while NPO Monitor BG w/ D5
--- NOTE | 2020-02-29 11:45 | NUR ---
[facility]ANCE [facility] FA[facility]:[phone] EXT [id number]
[2020-02-29 11:50] VITALS: BP 119/78
--- NOTE | 2020-02-29 12:00 | NUR ---
CASE MANAGEMENT: REVIEW 02/27/20 SI:ILEUS . 02/24 S/P RESECTION OF OMENTU/REVISION OF ILEOSTOMY/ EXCISION OF PELVIC CYST MALFUNCTIONING WILLIAM ILEOSTOMY . FISTULA 99.5 107 18 114/78 96% ON RA WBC 13.5 BUN 5 ALB 2.9 CA+8.2 IS:IV AMPICILLIN Q6HR IV FLAGYL Q6HR IV D5/LYTES @100ML/HR STONE POLISHER MACHINE DILAUDID PROTOCOL \: 3E MED SURG UNIT DCP: HOME WHEN STABLE PLAN: CONT JANAY DRAIN CARE NPO ADVANCE DIET TOLERATED CONT ENCOURAGE INCENTIVE SPIROMETER NEURO CHECKS DVT PROPHYLAXIS ENCOURAGE AMBULATION BID CASE MANAGEMENT: REVIEW 02/28/20 SI:ILEUS . 02/24 S/P RESECTION OF OMENTU/REVISION OF ILEOSTOMY/ EXCISION OF PELVIC CYST MALFUNCTIONING WILLIAM ILEOSTOMY . FISTULA 97.5 105 16 120/79 96% ON RA BUN 4 IS:IV AMPICILLIN Q6HR IV FLAGYL Q6HR IV D5/LYTES @100ML/HR STONE POLISHER MACHINE DILAUDID PROTOCOL \: 3E MED SURG UNIT DCP: HOME WHEN STABLE PLAN: NPO ADVANCE DIET TOLERATED CONT ENCOURAGE INCENTIVE SPIROMETER NEURO CHECKS DVT PROPHYLAXIS ENCOURAGE AMBULATION BID CASE MANAGEMENT: REVIEW 02/29/20 SI:ILEUS . 02/24 S/P RESECTION OF OMENTUM/REVISION OF ILEOSTOMY/ EXCISION OF PELVIC CYST MALFUNCTIONING KOCK POUCH ILEOSTOMY . FISTULA ~UNABLE TO CONVERT TO KUMAR POUCH D/T ONLY 11FT OF COLON 99.3 102 18 112/79 96% ON RA BUN 5 ALB 2.8 IS:IV AMPICILLIN Q6HR IV FLAGYL Q6HR IV D5/LYTES @100ML/HR STONE POLISHER MACHINE DILAUDID PROTOCOL IV TPN QD PROTOCOL \: 3E MED SURG UNIT DCP: HOME WHEN STABLE PLAN: NPO CONT ENCOURAGE INCENTIVE SPIROMETER NEURO CHECKS DVT PROPHYLAXIS ENCOURAGE AMBULATION BID Cont IV ABX's
[2020-02-29 16:00] VITALS: BP 110/74
--- NOTE | 2020-02-29 18:43 | NUR ---
NURSE NOTES: ileo: 20cc liquid brown output. UO: 2275cc reuben urine output. JANAY:10cc bloody output. Patient ambulated with RN.
--- NOTE | 2020-02-29 19:16 | NUR ---
NURSE HAND-OFF: Important Events on Shift:pain management, ambulate, I&O, benadryl and zofran given PRN. Patient Status: stable Diet: npo Pending Orders: n/a Pending Results/Labs:n/a Pending MD notification:n/a Latest Vital Signs: Temperature 98.1 , Pulse 114 , B/P 110 /74 , Respiratory Rate 21 , O2 SAT 97 , Room Air, O2 Flow Rate 3.0 . Vital Sign Comment: n/a Latest Bray Fall Score: 15 Fall Risk: Low Risk Safety Measures: Call light Within Reach, Bed Alarm Zone 1, Side Rails Side Rails x2, Bed position Low and Locked. Fall Precautions: Yellow Socks Door Sign Patient Fall Education Report given to Dg CASTANON.
--- NOTE | 2020-02-29 19:35 | NUR ---
NURSE NOTES: Received report from LG Preciado. Patient in stable condition
[2020-02-29 20:00] VITALS: BP 105/72
[2020-02-29] MEDS: Dyna-Hex 2% Top Sol 2oz TOPIC SCH (20:54)
[2020-03-01] VITALS: BP 108/73
[2020-03-01] MEDS: DiphenhydrAMINE 50mg/ml Inj IVP PRN ×6 (01:05→21:38)
[2020-03-01 04:00] VITALS: BP 106/70
[2020-03-01] MEDS: D5 1/2NS w/KCl 20mEq 1,000 ML IV SCH ×2 (04:00→15:57)
[2020-03-01] MEDS: Ampicillin/Sulbactam Sod 3 GM in NS 110 ML IV SCH (05:09)
[2020-03-01 06:07] LABS: BASOPHILS % (AUTO) 0.7 % (0.0-2.0); EOSINOPHILS % (AUTO) 5.9 % (0.0-3.0); HEMATOCRIT 36.7 % (37.0-47.0); HEMOGLOBIN 12.4 G/DL (12.0-16.0); LYMPHOCYTES % (AUTO) 16.8 % (20.0-45.0); MEAN CORPUSCULAR VOLUME 84 FL (80-99); MONOCYTES % (AUTO) 10.2 % (1.0-10.0); NEUTROPHILS % (AUTO) 66.4 % (45.0-75.0); PLATELET COUNT 230 K/UL (150-450); RED BLOOD COUNT 4.37 M/UL (4.20-5.40); RED CELL DISTRIBUTION WIDTH 11.7 % (11.6-14.8); WHITE BLOOD COUNT 8.7 K/UL (4.8-10.8)
--- NOTE | 2020-03-01 06:12 | NUR ---
NURSE HAND-OFF: Important Events on Shift:managing nausea and itching through benadryl and zofran q4. Patient developed some cold sores on her lips, encouraged oral care Total ileo output is 45 mL. thick brown output urine : 1350 Patient Status: Stable Diet: NPO X ice chips and meds Pending Orders: [] Pending Results/Labs:[] Pending MD notification:[] Latest Vital Signs: Temperature 98.1 , Pulse 96 , B/P 106 /70 , Respiratory Rate 20 , O2 SAT 96 , Room Air, O2 Flow Rate 3.0 . Vital Sign Comment: [] Latest Bray Fall Score: 15 Fall Risk: Low Risk Safety Measures: Call light Within Reach, Bed Alarm Zone 1, Side Rails Side Rails x2, Bed position Low and Locked. Fall Precautions: Yellow Socks Door Sign Patient Fall Education Report given to Addendum: 03/01/20 at 0729 by Collette Velazquez RN ILEO OUTPUT IS 25 mL.
[2020-03-01 06:40] LABS: ALANINE AMINOTRANSFERASE 22 U/L (12-78); ALBUMIN 2.9 G/DL (3.4-5.0); ALBUMIN/GLOBULIN RATIO 0.9 (1.0-2.7); ALKALINE PHOSPHATASE 71 U/L (46-116); ANION GAP 8 mmol/L (5-15); ASPARTATE AMINO TRANSFERASE 27 U/L (15-37); BILIRUBIN,TOTAL 0.3 MG/DL (0.2-1.0); BLOOD UREA NITROGEN 5 mg/dL (7-18); CALCIUM 8.7 MG/DL (8.5-10.1); CARBON DIOXIDE 28 MMOL/L (21-32); CHLORIDE 104 MMOL/L (98-107); CREATININE 0.6 MG/DL (0.55-1.30); POTASSIUM 4.3 MMOL/L (3.5-5.1); SODIUM 140 MMOL/L (136-145)
[2020-03-01] MEDS: PCA shift volume MISC SCH ×2 (07:24→19:00)
--- NOTE | 2020-03-01 07:30 | NUR ---
NURSE NOTES: Report given to Ilana CASTANON
--- NOTE | 2020-03-01 07:30 | NUR ---
NURSE NOTES: Patient is in bed awake and able to verbalize needs. Stable. Breathing is even and unlabored. VSS. Patient c/o feeling tired and sleep deprived. Patient instructed to call RN for assistance, verbalized understanding. PICC patent and running IVF and DIRECTOR FOUNDATION as ordered. F/C patent and draining reuben urine. JANAY compressed and draining red output. All needs met at this time. Patient is in bed in locked and lowest position with call light within reach and trapeze overhead. All safety measures provided. Will continue to monitor.
[2020-03-01 08:00] VITALS: BP 88/65
--- NOTE | 2020-03-01 11:50 | NUR ---
NURSE NOTES: Roman catheter removed, bedside commode provided. Patient ambulated with RN.
[2020-03-01 12:00] VITALS: BP 106/70
--- NOTE | 2020-03-01 12:35 | NUR ---
CASE MANAGEMENT: REVIEW 03/01/20 SI:ILEUS . 02/24 S/P RESECTION OF OMENTUM/REVISION OF ILEOSTOMY/ EXCISION OF PELVIC CYST MALFUNCTIONING KOCK POUCH ILEOSTOMY . FISTULA ~UNABLE TO CONVERT TO KUMAR POUCH D/T ONLY 11FT OF COLON 98.2 99 20 88/65 98% ON RA BUN 5 ALB 2.9 IS:IV AMPICILLIN Q6HR IV D5/LYTES @100ML/HR DIRECTOR EDUCATION DILAUDID PROTOCOL IV TPN QD PROTOCOL \: 3E MED SURG UNIT DCP: HOME WHEN STABLE PLAN: START ON CLEAR LIQ DIET DC IV ABX DC AHMADI CATH CONT ENCOURAGE INCENTIVE SPIROMETER NEURO CHECKS DVT PROPHYLAXIS ENCOURAGE AMBULATION BID Cont IV ABX's CONT TO MONITOR JANAY DRAIN
[2020-03-01] MEDS ORDERED: Naloxone 0.4mg/ml Inj IVP PRN (13:43)
[2020-03-01] MEDS ORDERED: Rate Change PCA 1 Each MISC PRN (13:45)
--- NOTE | 2020-03-01 13:54 | General Progress Note ---
Progress Note Progress Note AVSS Feeling better with occasional nausea. Mild vaginal yeast symptoms, no thrush Abdomen soft, mild distention, incision clean, stoma pink Urine 3625 Ileostomy 45 JANAY 15 labs all stable Imp: Resolving ileus Plan; clear liquid diet remove Roman, d/c antibiotics Solomon Marcial MD Mar 01, 2020 13:54
[2020-03-01] MEDS ORDERED: LORazepam 1mg tab SL PRN (14:15)
[2020-03-01] MEDS ORDERED: Fluconazole 150mg tab ORAL SCH (15:00)
[2020-03-01 15:57] VITALS: BP 117/75
[2020-03-01] MEDS: Abreva 10% cream 2gm TP SCH ×2 (15:57→18:32)
[2020-03-01] MEDS: Acyclovir 200mg Cap ORAL SCH ×2 (15:57→21:37)
[2020-03-01] MEDS: PCA HYDROmorphone 1mg/ml 30 ML IV PRN (18:34)
--- NOTE | 2020-03-01 19:25 | NUR ---
NURSE NOTES: Received patient awake, sitting in the commode. breathing even and unlabored. no sob. on room air. with picc line patent and intact. denies any pain or discomfort at the moment. noted with bag on the ileo on right lower quadrant and derik drain on the left side. per jamshid" dressing was changed and d/c'd madden today". with ongoing director geophysical laboratory dilaudid as ordered and an ongoing d5 1/2 ns +20 meq @75 ml/hr. assisted to go back to the bed. provided rest and comfort. needs attended and met. bed locked and in lowest position. call light and light button within easy reach. will continue plan of care
--- NOTE | 2020-03-01 19:30 | NUR ---
NURSE NOTES: ileo: 25cc liquid brown output. UO: 1400cc reuben urine output. F/C d/c as ordered, patient able to void x2, no c/o burning or discomfort. Patient ambulated with RN x1, tolerated well. Pt complained of nausea throughout day, patient reminded to take clear liquids slowly, verbalized understanding. Addendum: 03/01/20 at 2021 by CLINT NAQVI RN NURSE NOTES: JANAY: 5cc bloody output.
--- NOTE | 2020-03-01 19:30 | NUR ---
NURSE HAND-OFF: Important Events on Shift: ambulated, pain management, hydration, dressing changed. Patient Status: stable Diet: clear liquid Pending Orders: n/a Pending Results/Labs:n/a Pending MD notification:n/a Latest Vital Signs: Temperature 98.8 , Pulse 113 , B/P 117 /75 , Respiratory Rate 21 , O2 SAT 98 , Room Air, O2 Flow Rate 3.0 . Vital Sign Comment: n/a Latest Bray Fall Score: 15 Fall Risk: Low Risk Safety Measures: Call light Within Reach, Bed Alarm Zone 1, Side Rails Side Rails x2, Bed position Low and Locked. Fall Precautions: Yellow Socks Door Sign Patient Fall Education Report given to Francine CASTANON.
--- NOTE | 2020-03-01 19:30 | NUR ---
NURSE NOTES: Received patient awake, sitting in the commode. breathing even and unlabored. no sob. on room air. with picc line patent and intact. denies any pain or discomfort at the moment. noted with ileostomyon right lower quadrant and derik drain on the left side. per jamshid" dressing was changed and d/c'd madden today". with ongoing dynamics ax technical architect dilaudid as ordered and an ongoing d5 1/2 ns +20 meq @75 ml/hr. assisted to go back to the bed. provided rest and comfort. needs attended and met. bed locked and in lowest position. call light and light button within easy reach. will continue plan of care. Addendum: 03/02/20 at 0000 by Dori Tate RN wrong entry.
[2020-03-01 20:00] VITALS: BP_SYST 118; BP_DIAS 72; BP_DIAS 75
[2020-03-01] MEDS: Dyna-Hex 2% Top Sol 2oz TOPIC SCH (21:37)
--- NOTE | 2020-03-01 23:55 | NUR ---
NURSE NOTES: assisted patient to go to commode and back to bed. patient asked for sleeping pill to help her go to sleep. administered as ordered. attended to needs. provided rest and comfort. bed locked and in lowest position. call light and light button within easy reach.
[2020-03-02] VITALS: BP 112/75
[2020-03-02] MEDS: DiphenhydrAMINE 50mg/ml Inj IVP PRN ×3 (01:40→09:51)
[2020-03-02 04:00] VITALS: BP 115/73
[2020-03-02] MEDS: D5 1/2NS w/KCl 20mEq 1,000 ML IV SCH ×2 (05:38→17:58)
[2020-03-02] MEDS: Acyclovir 200mg Cap ORAL SCH ×3 (05:41→21:02)
[2020-03-02 05:42] LABS: BASOPHILS % (AUTO) 0.8 % (0.0-2.0); EOSINOPHILS % (AUTO) 6.3 % (0.0-3.0); HEMOGLOBIN 12.3 G/DL (12.0-16.0); MEAN CORPUSCULAR VOLUME 84 FL (80-99); MONOCYTES % (AUTO) 11.4 % (1.0-10.0); NEUTROPHILS % (AUTO) 66.5 % (45.0-75.0); PLATELET COUNT 239 K/UL (150-450); RED BLOOD COUNT 4.38 M/UL (4.20-5.40); RED CELL DISTRIBUTION WIDTH 11.7 % (11.6-14.8); WHITE BLOOD COUNT 11.7 K/UL (4.8-10.8)
[2020-03-02 06:00] LABS: ALANINE AMINOTRANSFERASE 23 U/L (12-78); ALBUMIN 3.1 G/DL (3.4-5.0); ALBUMIN/GLOBULIN RATIO 1.2 (1.0-2.7); ALKALINE PHOSPHATASE 66 U/L (46-116); ANION GAP 6 mmol/L (5-15); ASPARTATE AMINO TRANSFERASE 20 U/L (15-37); BILIRUBIN,TOTAL 0.3 MG/DL (0.2-1.0); BLOOD UREA NITROGEN 2 mg/dL (7-18); CALCIUM 8.8 MG/DL (8.5-10.1); CARBON DIOXIDE 28 MMOL/L (21-32); CHLORIDE 102 MMOL/L (98-107); CREATININE 0.6 MG/DL (0.55-1.30); PHOSPHORUS 3.9 MG/DL (2.5-4.9); POTASSIUM 4.3 MMOL/L (3.5-5.1); SODIUM 136 MMOL/L (136-145)
[2020-03-02] MEDS: Abreva 10% cream 2gm TP SCH ×5 (06:22→17:59)
--- NOTE | 2020-03-02 06:26 | NUR ---
NURSE HAND-OFF: Important Events on Shift: pain mngt; safety using bedside commode Patient Status: stable Diet: clear liquid diet Pending Orders: Pending Results/Labs: Pending MD notification: Latest Vital Signs: Temperature 97.9 , Pulse 105 , B/P 115 /73 , Respiratory Rate 21 , O2 SAT 97 , Room Air, O2 Flow Rate 3.0 . Vital Sign Comment: Latest Bray Fall Score: 15 Fall Risk: Low Risk Safety Measures: Call light Within Reach, Bed Alarm Zone 1, Side Rails Side Rails x2, Bed position Low and Locked. Fall Precautions: Yellow Socks Door Sign Patient Fall Education Addendum: 03/02/20 at 0637 by Dori Tate RN IMPORTANT EVENTS ON SHIFT: on CLOSING SUPERVISOR DILAUDID& DRESSING CHANGED FOR PICC LINE Addendum: 03/02/20 at 0640 by Dori Tate RN URINE OUTPUT: 950 ML ILEO(bag):60ml derik drain- 7 ml intake: oral- 550ml & iv fluids -900ml Addendum: 03/02/20 at 0709 by Dori Tate RN report given to mae breen
[2020-03-02] MEDS: PCA shift volume MISC SCH ×2 (07:09→19:00)
--- NOTE | 2020-03-02 07:30 | NUR ---
NURSE NOTES: Patient is in bed awake and able to verbalize needs. Stable. Denies pain or SOB. Breathing is even and unlabored. Patient instructed to use call light for assistance, PICC patent and running IVF and SAND DIGGER as ordered. Ileo bag intact. JANAY patent and draining bloody output. Bedside commode within reach. All safety measures provided. Patient is in bed in locked and lowest position with call light within reach. All needs met at this time. Will continue to monitor.
[2020-03-02 08:00] VITALS: BP 101/65
--- NOTE | 2020-03-02 08:33 | General Progress Note ---
Progress Note Progress Note AVSS with intermittent tachycardia c/o some nausea, bloating Abdomen distended, soft, incision clean, stoma pink with mild edema Urine 2350 voiding every hour all night 100cc volume each void Ileostomy 85cc WBC up 11,700 Hgb 12.3 Mg 1.7 albumin up 3.1 Imp: Persistent ileus Leukocytosis, frequent voiding Plan: NPO again U/A and urine C&S and bladder scan for post-void residual KUB XRay Mg infusion f/u labs Solomon Marcial MD Mar 02, 2020 08:33
[2020-03-02 09:53] LABS: APPEARANCE,URINE SLIGHTLY CLOUDY; BILIRUBIN, URINE NEGATIVE (NEGATIVE); COLOR,URINE PALE YELLOW; GLUCOSE, URINE (UA) NEGATIVE (NEGATIVE); KETONES,URINE NEGATIVE (NEGATIVE); LEUKOCYTE ESTERASE ,URINE 1+ (NEGATIVE); NITRITE,URINE NEGATIVE (NEGATIVE); PH,URINE 6.5 (4.5-8.0); PROTEIN,URINE NEGATIVE (NEGATIVE); UROBILINOGEN,URINE NORMAL MG/DL (0.0-1.0)
--- NOTE | 2020-03-02 10:00 | NUR ---
NURSE NOTES: Urine collected and sent to lab. Bladder scan: 15mL.
--- NOTE | 2020-03-02 10:40 | Diagnostic Imaging Report ---
EXAM: XRAY Abdomen 1v HISTORY: Abdominal distention COMPARISON: None. TECHNIQUE: Frontal view of the abdomen obtained. FINDINGS: 'S operative changes of the abdomen noted. There are midline skin quan. Multiple surgical clips scattered throughout the abdomen and there is a drain in the upper pelvis. Nonspecific bowel gas pattern with relative paucity of bowel gas noted. No definite pathologic calcifications identified. There is no sign of free air. No acute abnormality noted of the visualized osseous structures. IMPRESSION: POSTOPERATIVE CHANGES OF THE ABDOMEN. NONSPECIFIC BOWEL GAS PATTERN.
--- NOTE | 2020-03-02 10:58 | NUR ---
RADIOLOGY DEPT., ABDOMEN X-RAY COMPLETED.-P.DYE
[2020-03-02 12:00] VITALS: BP 122/79
--- NOTE | 2020-03-02 12:30 | NUR ---
CASE MANAGEMENT: REVIEW 03/02/20 SI:PERSISTENT ILEUS .02/24 S/P RESECTION OF OMENTUM/REVISION OF ILEOSTOMY w/ EXCISION OF PELVIC CYST MALFUNCTIONING KOCK POUCH ILEOSTOMY . FISTULA ~UNABLE TO CONVERT TO KUMAR POUCH D/T ONLY 11FT OF COLON 98.4 100 19 122/79 95% ON RA WBC 11.7 MG 1.7 ALB 3.1 BUN 2 IS:IV MAGNESIUM SULFATE 100ml/hr X2 BAGS IV D5/LYTES @100ML/HR FLAKE MILLER WHEAT AND OATS DILAUDID PROTOCOL IV TPN QD PROTOCOL ZOVIRAX PO TID ABREVA TP Q5XDAY X-RAY KUB- POSTOPERATIVE CHANGES OF THE ABDOMEN. NONSPECIFIC BOWEL GAS PATTERN. \: 3E MED SURG UNIT DCP: HOME WHEN STABLE PLAN: Persistent ileus ~NPO again CONT ENCOURAGE INCENTIVE SPIROMETER NEURO CHECKS DVT PROPHYLAXIS ENCOURAGE AMBULATION BID CONT TO MONITOR JANAY DRAIN POST VOID RESIDUAL ~FREQUENCY REPLACE MG
[2020-03-02 16:00] VITALS: BP 102/63
[2020-03-02] MEDS: Hyoscyamine 0.125mg tab ORAL PRN (17:58)
[2020-03-02] MEDS: HYDROmorphone 1mg/ml Carpuject SUBQ PRN (18:21)
--- NOTE | 2020-03-02 19:12 | NUR ---
NURSE NOTES: void x20, 1950cc light yellow urine. Dr. Marvin assessed patient. ileo: 100cc brown liquid output. JANAY: 5cc bloody output.
--- NOTE | 2020-03-02 19:30 | NUR ---
NURSE NOTES: Patient awake in bed, alert and oriented x4, on room air, no SOB. With left upper arm PICC connected to D5 1/2 NS +KCL20 @75ml/hr and [employer] Dilaudid. With ileostomy on the right abdomen draining on colostomy bag and JANAY drain on the left abdomen. Mid abdomen's dressing is dry and intact. Instructed to use call light for assistance. Bed in lowest and lock engaged. Bedside commode is accessible. Call light and needs in reach. Will continue plan of care.
--- NOTE | 2020-03-02 19:44 | Consultation ---
DATE OF CONSULTATION: 03/02/2020 CONSULTING PHYSICIAN: Ja Marvin MD REFERRING PHYSICIAN: Solomon Marcial MD REASON FOR CONSULTATION: For evaluation of urinary frequency. HISTORY OF PRESENT ILLNESS: This is a 39-year-old female. She has a history of ulcerative colitis. She has malfunctioning Carlee ileostomy. She is status post revision of her ileostomy. This was done on 02/25/2020. The patient has been complaining of urinary frequency and Urology evaluation has been requested. Apparently, the patient has been voiding every hour 80 to 100 mL. The patient has some abdominal discomfort, but denies dysuria. She denies previous bladder surgery. PAST MEDICAL HISTORY: Significant for above. PAST SURGICAL HISTORY: She has had abdominal hysterectomy. She has had a previous Hernandez pouch vaginal fistula. CURRENT MEDICATIONS: Here in the hospital the patient is on Levsin. She is on Benadryl. She is on , Ativan, Dilaudid PROJECT FINANCIAL ANALYST, Narcan, Restoril, Mylicon, Compazine, Tylenol. ALLERGIES: Multiple including iodinated contrast media, iodine, mesalamine, morphine, sulfasalazine. SOCIAL HISTORY: The patient is currently nonsmoker. REVIEW OF SYSTEMS: As above. FAMILY HISTORY: Noncontributory. PHYSICAL EXAMINATION: GENERAL: Well-developed, well-nourished female, in no acute distress. VITAL SIGNS: Temperature is 99.3, blood pressure is 102/63, pulse is 106, respirations 19. HEENT: Normocephalic. NECK: Supple. ABDOMEN: Shows right-sided ileostomy. There is a JANAY drain in place. There is abdominal dressing. Abdomen is mildly distended. No CVA tenderness. LABORATORY DATA: Her UA on 02/24/2020 showed 2 to 4 rbc's, 15 to 20 wbc's, and few bacteria. At that time, she had urine culture that showed mixed gram-positive organisms. She had a repeat urinalysis this morning, which showed 2 to 4 wbc's, few bacteria, 0 to 2 rbc's. Her white blood cell count is 11.7, hemoglobin is 12.3. BUN is 2, creatinine is 0.6. DIAGNOSTIC IMAGING STUDIES: There is no renal imaging. The patient did have an abdominal x-ray, which showed nonspecific bowel gas pattern. She did have a bladder scan, which showed a PVR of 15 mL. IMPRESSION: 1. Urinary frequency. 2. 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 3. Pyuria history. 4. Hematuria history. PLAN AND DISCUSSION: Again, the patient does have frequent urination, which is presumably secondary to bladder spasms as a result of detrusor instability. She is emptying well with low residual. She may benefit from a trial of anticholinergics. However, there could be a potential side effect of constipation or exacerbating ileus. As such, I will put her on a low dose to start off with possibly Detrol or oxybutynin and go from there. If she has abdominal GI side effects, we may have to discontinue. She also has mild pyuria and I will check a urine culture with antibiotics as needed. The patient can have a cystoscopy and possibly urodynamics on an elective basis for further evaluation. I will follow the patient and recommendations will be forthcoming. Thank you, Dr. Marcial, for asking me to see this patient in consultation. Ja Marvin M.D. DR: ALIE JOB#: [id number] CC:
--- NOTE | 2020-03-02 19:51 | NUR ---
NURSE HAND-OFF: Important Events on Shift: I&O, hydration, pain management, nausea management, itching management Patient Status: stable Diet: full liquid Pending Orders: n/a Pending Results/Labs:n/a Pending MD notification:n/a Latest Vital Signs: Temperature 99.3 , Pulse 106 , B/P 102 /63 , Respiratory Rate 19 , O2 SAT 97 , Room Air, O2 Flow Rate 3.0 . Vital Sign Comment: n/a Latest Bray Fall Score: 15 Fall Risk: Low Risk Safety Measures: Call light Within Reach, Bed Alarm Zone 1, Side Rails Side Rails x2, Bed position Low and Locked. Fall Precautions: Yellow Socks Door Sign Patient Fall Education Report given to Shivam CASTANON.
[2020-03-02 20:00] VITALS: BP 107/69
[2020-03-02] MEDS: Dyna-Hex 2% Top Sol 2oz TOPIC SCH (20:20)
[2020-03-02] MEDS: HydrOXYzine tab 25mg tab ORAL PRN (21:02)
[2020-03-02] MEDS: Oxybutynin 5mg tab ORAL SCH (21:02)
--- NOTE | 2020-03-02 21:30 | NUR ---
NURSE NOTES: Patient asked for her Benadryl and Zofran. Given as ordered. After few mins patient complained that Benadryl IV was more effective on her. Explained risks and benefits and discussed the option to have Atarax. Given as ordered.
[2020-03-03] VITALS: BP 108/65
[2020-03-03] MEDS: HydrOXYzine tab 25mg tab ORAL PRN ×4 (02:55→20:49)
[2020-03-03 04:00] VITALS: BP 96/59
[2020-03-03] MEDS: Acyclovir 200mg Cap ORAL SCH ×3 (05:09→22:18)
[2020-03-03] MEDS: Oxybutynin 5mg tab ORAL SCH ×3 (05:09→22:18)
[2020-03-03 05:54] LABS: BASOPHILS % (AUTO) 1.2 % (0.0-2.0); EOSINOPHILS % (AUTO) 5.6 % (0.0-3.0); HEMATOCRIT 35.6 % (37.0-47.0); LYMPHOCYTES % (AUTO) 14.9 % (20.0-45.0); MEAN CORPUSCULAR VOLUME 84 FL (80-99); MONOCYTES % (AUTO) 11.4 % (1.0-10.0); NEUTROPHILS % (AUTO) 66.9 % (45.0-75.0); PLATELET COUNT 226 K/UL (150-450); RED BLOOD COUNT 4.23 M/UL (4.20-5.40); RED CELL DISTRIBUTION WIDTH 11.8 % (11.6-14.8)
--- NOTE | 2020-03-03 05:57 | NUR ---
NURSE NOTES: Blood drawn from PICC and sent to the lab for AM labs.
[2020-03-03 06:06] LABS: ALANINE AMINOTRANSFERASE 18 U/L (12-78); ALBUMIN/GLOBULIN RATIO 0.9 (1.0-2.7); ALKALINE PHOSPHATASE 69 U/L (46-116); ANION GAP 5 mmol/L (5-15); ASPARTATE AMINO TRANSFERASE 21 U/L (15-37); BILIRUBIN,TOTAL 0.3 MG/DL (0.2-1.0); BLOOD UREA NITROGEN 4 mg/dL (7-18); CALCIUM 8.5 MG/DL (8.5-10.1); CARBON DIOXIDE 30 MMOL/L (21-32); CHLORIDE 103 MMOL/L (98-107); CREATININE 0.7 MG/DL (0.55-1.30); PHOSPHORUS 3.6 MG/DL (2.5-4.9); POTASSIUM 4.2 MMOL/L (3.5-5.1); SODIUM 138 MMOL/L (136-145)
--- NOTE | 2020-03-03 06:11 | NUR ---
NURSE NOTES: Voided x11, 1950cc light yellow urine Ileo: 280cc brown liquid output. JANAY: 5cc bloody to yellow output.
--- NOTE | 2020-03-03 07:10 | NUR ---
NURSE NOTES: Report received from Eb RN, rounds made. Patient resting in semi-fowlers position in bed, AOx4, calm. Abdominal pain 4/10, tolerating LABORER COOK HOUSE Dilaudid (Bolus 0.2mg, every 6 minutes, 6 mg lockout), with IVF D5 1/2 NS +20 KCL at 75 ml/hr, via ASHKAN PICC, site/dressing CDI. RLQ Carlee Ileostomy appliance in place, brown liquid output noted. Abdominal dressing CDI. Bilateral SCDs off, up to BSC frequently. Call light in reach, bed in lowest position, will continue to monitor.
[2020-03-03] MEDS: PCA shift volume MISC SCH ×2 (07:18→19:00)
--- NOTE | 2020-03-03 07:18 | NUR ---
NURSE HAND-OFF: Important Events on Shift: Bedside Commode Assistance, PRN Benadryl, Zofran & Atarax on the dot, CHANNEL DEVELOPMENT MANAGER, PICC draw Patient Status: Diet: Full liquid Pending Orders: AM labs Pending Results/Labs: multiple labs Pending MD notification: Latest Vital Signs: Temperature 99.3 , Pulse 108 , B/P 96 /59 , Respiratory Rate 17 , O2 SAT 95 , Room Air, O2 Flow Rate 3.0 . Vital Sign Comment: Latest Bray Fall Score: 15 Fall Risk: Low Risk Safety Measures: Call light Within Reach, Bed Alarm Zone 1, Side Rails Side Rails x2, Bed position Low and Locked. Fall Precautions: Yellow Socks Door Sign Patient Fall Education Report given to LG Bal.
[2020-03-03] MEDS: Abreva 10% cream 2gm TP SCH ×5 (07:19→19:16)
--- NOTE | 2020-03-03 07:58 | Urology Progress Note ---
Assessment/Plan Assessment/Plan: 1. Urinary frequency. 2. 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 3. Pyuria history. 4. Hematuria history. monitor clinically low dose ditropan added d/w Dr. Marcial Subjective Allergies: Coded Allergies: IODINATED CONTRAST MEDIA (Verified Allergy, Severe, Shortness of Breath, 02/24/20) IODINE (Verified Allergy, Severe, Shortness of Breath, 02/24/20) MORPHINE (Verified Allergy, Intermediate, Hives, 02/24/20) SULFASALAZINE (Verified Allergy, Intermediate, Hives, 02/24/20) MESALAMINE (Verified Adverse Reaction, Mild, headache , 02/24/20) Subjective all noted, no new changes Objective Last 24 Hour Vital Signs Date Time Temp Pulse Resp B/P (MAP) Pulse Ox O2 Delivery O2 Flow Rate FiO2 03/03/20 04:00 99.3 108 17 96/59 (71) 95 03/03/20 04:00 108 17 95 03/03/20 00:00 106 20 97 03/03/20 00:00 97.8 106 20 108/65 (79) 97 03/02/20 21:00 Room Air 03/02/20 20:00 98.8 113 18 107/69 (82) 97 03/02/20 20:00 113 18 97 03/02/20 16:00 99.3 106 19 102/63 (76) 97 03/02/20 16:00 106 19 97 03/02/20 12:00 98.4 100 19 122/79 (93) 95 03/02/20 12:00 100 19 95 03/02/20 08:04 Room Air 03/02/20 08:00 107 18 96 03/02/20 08:00 98.8 107 18 101/65 (77) 96 Intake and Output 03/02/20 03/03/20 19:00 07:00 Intake Total 240 ml 700 ml Output Total 3690 ml Balance 240 ml -2990 ml Intake Oral 240 ml 700 ml Output Urine Total 3300 ml Drainage Total 10 ml Other 380 ml # Voids 1 20 Microbiology Date/Time Source Procedure Growth Status 03/02/20 09:40 Urine,Clean Catch Urine Culture - Preliminary NO GROWTH Resulted 02/24/20 10:30 Nasopharynx SARS-CoV-2 RdRp Gene Assay - Final Complete Current Medications Medications (Trade) Dose Ordered Sig/Gus Route PRN Reason Start Time Stop Time Status Last Admin Dose Admin Acetaminophen (Tylenol) 650 mg Q4H PRN ORAL Mild Pain, temp over 100.2 02/25/20 10:15 03/26/20 10:14 Acyclovir (Zovirax) 400 mg EVERY 8 HOURS ORAL 03/01/20 15:00 03/31/20 14:59 03/03/20 05:09 Chlorhexidine Gluconate (Rose-Hex 2%) 1 applic DAILY@2000 TOPIC 02/24/20 20:00 05/24/20 19:59 03/02/20 20:20 Dextrose/ Electrolytes 1,000 ml @ 75 mls/hr [id number] IV 02/24/20 18:00 03/25/20 17:59 03/02/20 17:58 Diphenhydramine HCl (Benadryl) 50 mg Q4H PRN ORAL Itching 03/02/20 12:00 04/01/20 11:59 03/03/20 04:36 Docosanol (Abreva) 1 gm FIVE TIMES A DAY TP 03/01/20 16:00 05/30/20 15:59 03/03/20 07:19 Hydromorphone HCl 30 ml @ 0 mls/hr Q24H PRN IV For Pain 03/01/20 13:46 03/03/20 13:45 03/01/20 18:34 Hydromorphone HCl (Dilaudid) 1 mg Q4H PRN SUBQ Severe Breakthru Pain (>7) 03/01/20 13:46 03/08/20 13:45 03/02/20 18:21 Hydroxyzine HCl (Atarax) 50 mg Q6H PRN ORAL Itching 02/28/20 11:30 03/29/20 11:29 03/03/20 02:55 Hyoscyamine Sulfate (Levsin) 0.125 mg Q6H PRN ORAL cramping 03/02/20 17:30 04/01/20 17:29 03/02/20 17:58 Lorazepam (Ativan) 1 mg Q4H PRN SL Muscle Spasm 03/01/20 14:15 03/08/20 14:14 Miscellaneous Medication (WASHING MACHINE ASSEMBLER Rate Change) 1 ea DAILY PRN MISC rate change 03/01/20 13:45 03/03/20 13:44 Miscellaneous Medication (WASHING MACHINE ASSEMBLER shift volume) 1 ea Q12HR@0700,1900 MISC 03/01/20 19:00 03/04/20 18:59 03/03/20 07:18 Naloxone HCl (Narcan) 0.1 mg Q1M PRN IVP RR<10/min OR SBP<90 mmHg 03/01/20 13:43 05/30/20 13:41 Ondansetron HCl (Zofran) 4 mg Q4H PRN IVP Nausea & Vomiting 02/25/20 10:15 03/26/20 10:14 03/03/20 04:37 Oxybutynin Chloride (Ditropan) 2.5 mg Q8HR ORAL 03/02/20 22:00 04/01/20 21:59 03/03/20 05:09 Prochlorperazine (Compazine) 10 mg Q6H PRN IVP Nausea & Vomiting 02/25/20 10:30 03/26/20 10:29 03/02/20 08:44 Simethicone (Mylicon) 80 mg QID PRN ORAL Abdominal cramps, gas 02/29/20 09:30 05/29/20 09:29 02/29/20 10:00 Temazepam (RestoriL) 7.5 mg HSPRN PRN ORAL Insomnia 02/29/20 21:00 03/07/20 20:59 03/03/20 01:03 Laboratory Tests 03/02/20 09:40: Urine Color Pale yellow, Urine Appearance Slightly cloudy, Urine pH 6.5, Urine Specific [place] 1.010, Urine Protein Negative, Urine Glucose (UA) Negative, Urine Ketones Negative, Urine Blood Negative, Urine Nitrite Negative, Urine Bilirubin Negative, Urine Urobilinogen Normal, Urine Leukocyte Esterase 1+H, Urine RBC 0-2, Urine WBC 2-4, Urine Squamous Epithelial Cells ModerateH, Urine Bacteria Few, Urine Yeast OccasionalH 03/03/20 05:20: White Blood Count 11.0H, Red Blood Count 4.23, Hemoglobin 12.0, Hematocrit 35.6L , Mean Corpuscular Volume 84, Mean Corpuscular Hemoglobin 28.3, Mean Corpuscular Hemoglobin Concent 33.7, Red Cell Distribution Width 11.8, Platelet Count 226, Mean Platelet Volume 5.8L, Neutrophils (%) (Auto) 66.9, Lymphocytes (%) (Auto) 14.9L, Monocytes (%) (Auto) 11.4H, Eosinophils (%) (Auto) 5.6H, Basophils (%) (Auto) 1.2, Sodium Level 138, Potassium Level 4.2, Chloride Level 103, Carbon Dioxide Level 30, Anion Gap 5, Blood Urea Nitrogen 4L, Creatinine 0.7, Estimat Glomerular Filtration Rate > 60, Glucose Level 96, Calcium Level 8.5, Phosphorus Level 3.6, Magnesium Level 1.9, Total Bilirubin 0.3, Aspartate Amino Transf (AST/SGOT) 21, Alanine Aminotransferase (ALT/SGPT) 18, Alkaline Phosphatase 69, Total Protein 6.4, Albumin 3.0L, Globulin 3.4, Albumin/Globulin Ratio 0.9L Height (Feet): 5 Height (Inches): 4.00 Weight (Pounds): 145 Objective exam stable Ja Marvin MD Mar 03, 2020 07:58
[2020-03-03 08:00] VITALS: BP 95/65
--- NOTE | 2020-03-03 08:27 | NUR ---
RD ASSESSMENT & RECOMMENDATIONS SEE CARE ACTIVITY FOR COMPLETE ASSESSMENT DAILY ESTIMATED NEEDS: Needs based on Surgery 57.6kg 25-30 kcals/kg 5925-3574 total kcals 1-2 g protein/kg 58-115 g total protein 25-30 mL/kg 1314-0898 total fluid mLs NUTRITION DIAGNOSIS: Altered GI fxn related to ileostomy revision as evidenced by pt w/ h/o BCIR, now w/ Carlee ileo, s/p laparotomy w/ revision, w/ ileus, diet advanced to full liquid now. CURRENT DIET: Now Full Liquid PO DIET RECOMMENDATIONS: Clears as able TPN Comment: Consult RD w/ continued ileus/ NPO status ADDITIONAL RECOMMENDATIONS: 1) Obtain a standing weight as able 2) Monitor lytes while NPO-> diet advanced, will monitor Monitor BG w/ D5- wnl
--- NOTE | 2020-03-03 08:42 | NUR ---
NURSE NOTES: Spoke to Nikki in Pharmacy regarding giving Atarax 10 minutes earlier, last dose given at 0255,frequency is Q6 hours PRN, confirmed it's okay to administer.
[2020-03-03] MEDS: D5 1/2NS w/KCl 20mEq 1,000 ML IV SCH (08:45)
--- NOTE | 2020-03-03 09:06 | General Progress Note ---
Progress Note Progress Note AVSS with tachycardia to 113 at times. c/o nausea, occ pain, taking small amounts of full liquid diet Abdomen non-distended, soft, incision clean. JANAY removed Ileostomy draining Urine 3300 voiding hourly - appreciate Dr. Marvin evaluation Ileostomy 380cc JANAY 10cc WBC 11,000 Hgb 12 chem all stable albumin 3.0 urine C&S no growth Imp: Persistent nausea, low ileostomy ouotput mild leukocytosis Plan: STAT CT abd+pelvis - she states she gets anaphylaxis with oral and IV contrast May need TPN f/u labs Solomon Marcial MD Mar 03, 2020 09:06
--- NOTE | 2020-03-03 09:30 | NUR ---
NURSE NOTES: Patient sent down for CT of abdomen/pelvis via bed on RA, in stable condition at 0915, returned at 0930.
--- NOTE | 2020-03-03 10:06 | Diagnostic Imaging Report ---
Indication: Reason For Exam: ABSCESS Technique: Continuous helical scanning was performed without any contrast material from the diaphragms through the pelvis per specific request of the ordering physician. Axial, sagittal, and coronal images were generated. Dose: Total Dose Length Product - DLP 239.[address] Dose Index - CTDIvol(s) 4.60 mGy. Automated exposure control was utilized for dose reduction. Comparison: None Findings: There are bilateral breast implants. Liver is unremarkable without contrast. The gallbladder appears normal. The spleen is unremarkable. Pancreas is normal. Adrenal glands are normal. The left kidney is unremarkable. Right kidney contains a tiny calcification in the mid pole measuring 1 mm. Right kidney is otherwise unremarkable. Aorta and inferior vena cava are normal caliber. Retroperitoneum is free of adenopathy. Skin quan are noted in the midline. The colon is surgically absent. There is an ileostomy in the right lower quadrant. Multiple air-fluid levels are noted in the upper pelvis, presumably in small bowel. However, possibility of any one of these representing an interloop fluid collection cannot be excluded. The uterus appears absent. Ovaries are not identified. There is a 25 mm high density structure in the left side of the pelvis. The bladder is unremarkable. Osseous structures are unremarkable. There are surgical clips in the abdomen. Some thickening of the peritoneal surface in the pelvis is noted. There is a small amount of fluid in the left pelvis versus postsurgical change. There is also small fluid collection measuring approximately 3 x 2 cm just beneath the anterior abdominal incision at the level of the umbilicus containing a small amount of air in addition. Impression: Bilateral breast implants. Total colectomy with ileostomy in the right lower quadrant. Multiple air-fluid levels in the pelvis presumably representing ileus. Again, lack of oral contrast precludes evaluation for small interloop fluid collections. Hysterectomy. Small high density structure in the left side of the pelvis. Possibilities include small hematoma or left ovary. Postsurgical changes. Small amount of fluid in the left hemipelvis. This may represent postsurgical change though small abscess cannot be excluded. Small fluid collection beneath the incision. It is uncertain whether this represents bowel or a small abscess. 1 mm nonobstructive calculus in the right kidney. The CT scanner at [facility] is accredited by the [employer] and the scans are performed using protocols designed to limit radiation exposure to as low as reasonably achievable to attain images of sufficient resolution adequate for diagnostic evaluation.
[2020-03-03 12:00] VITALS: BP 104/68
[2020-03-03] MEDS ORDERED: Dextrose 10% 1,000 ML IV PRN (12:45)
--- NOTE | 2020-03-03 14:17 | Cardiology Report ---
APPROVED REPORT EKG Measurement Heart [id number] <Conclusion> Normal sinus rhythm Normal ECG
--- NOTE | 2020-03-03 15:33 | NUR ---
CASE MANAGEMENT: REVIEW 03/02/20 SI:URINARY FREQUENCY . PERSISTENT ILEUS . S/P RESECTION OF OMENTUM/REVISION OF ILEOSTOMY w/ EXCISION OF PELVIC CYST (02/25/20) MALFUNCTIONING KOCK POUCH ILEOSTOMY . FISTULA ~UNABLE TO CONVERT TO KUMAR POUCH D/T ONLY 11FT OF COLON 99.3 106 19 102/63 97% ON RA WBC 11.0 ALB 3.0 IS:START ON TPN QD IV D5/LYTES @75ML/HR LEAD ASSISTANT MANAGER DILAUDID PROTOCOL ZOVIRAX PO TID ABREVA TP Q5XDAY CT Abdomen Pelvis WO Contrast-Total colectomy with ileostomy in the right lower quadrant. Multiple air-fluid levels in the pelvis presumably representing ileus. Again, lack of oral contrast precludes evaluation for small interloop fluid collections. Hysterectomy. Small high density structure in the left side of the pelvis. Possibilities include small hematoma or left ovary. Postsurgical changes. Small amount of fluid in the left hemipelvis. This may represent postsurgical change though small abscess cannot be excluded.Small fluid collection beneath the incision. It is uncertain whether this represents bowel or a small abscess.1 mm nonobstructive calculus in the right kidney. \: 3E MED SURG UNIT DCP: HOME WHEN STABLE PLAN: Persistent ileus ~NPO again CONT ENCOURAGE INCENTIVE SPIROMETER NEURO CHECKS DVT PROPHYLAXIS ENCOURAGE AMBULATION BID CONT TO MONITOR JANAY DRAIN POST VOID RESIDUAL ~FREQUENCY REPLACE MG
[2020-03-03 16:00] VITALS: BP 105/68
--- NOTE | 2020-03-03 19:22 | NUR ---
NURSE HAND-OFF: Important Events on Shift:CT abdomen/pelvis without contrast done, diet changed to NPO except ice chips/sips with meds Patient Status: stable Diet: NPO Pending Orders: TPN/Accu checks to start tonight Pending Results/Labs:none Pending MD notification:none Latest Vital Signs: Temperature 98.8 , Pulse 114 , B/P 105 /68 , Respiratory Rate 18 , O2 SAT 100 , Room Air, O2 Flow Rate 3.0 . Vital Sign Comment: none Latest Bray Fall Score: 15 Fall Risk: Low Risk Safety Measures: Call light Within Reach, Bed Alarm Zone 1, Side Rails Side Rails x2, Bed position Low and Locked. Fall Precautions: Yellow Socks Door Sign Patient Fall Education Report given to Kwan CASTANON. Addendum: 03/03/20 at 2003 by Mally Casas RN Outputs: Urine: 1175 ml Carlee: 100 ml Addendum: 03/03/20 at 2019 by Mally Casas RN Endorsed patient requesting breakthrough Dilaudid SQ and Zofran PRN.
--- NOTE | 2020-03-03 19:30 | NUR ---
NURSE NOTES: received patient and report from LG Bal. Patient alert and oriented x4 with no acute s/s of distress. Patient with 6/10 pain and will give medications when due. PICC noted clean dry and intact. Ileostomy noted and draining. surgical dressing clean dry and intact. Plan of care discussed.
[2020-03-03] MEDS: HYDROmorphone 1mg/ml Carpuject SUBQ PRN (19:57)
[2020-03-03] MEDS: Dyna-Hex 2% Top Sol 2oz TOPIC SCH (19:57)
[2020-03-03] MEDS: Fat Emulsion Iv 20% 216 ML in Tpn 1,584 ML IV SCH (19:58)
[2020-03-03 20:00] VITALS: BP 106/63
[2020-03-03] MEDS ORDERED: Fat Emulsion Iv 20% 250 ML IV SCH (21:00)
[2020-03-04] VITALS (8 sets, daily range): BP systolic 94–137; BP diastolic 60–78
[2020-03-04] MEDS: HYDROmorphone 1mg/ml Carpuject SUBQ PRN ×3 (03:05→23:01)
[2020-03-04] MEDS: HydrOXYzine tab 25mg tab ORAL PRN ×2 (03:06→09:33)
--- NOTE | 2020-03-04 04:30 | NUR ---
LITHOGRAPHIC PLATE MAKER syringe changed. remaining in syringe was 4.37 and was wasted along with tubing and witnessed with charge nurse. after priming new syringe and programming it into LITHOGRAPHIC PLATE MAKER machine, VTBI was at 28ml.
[2020-03-04] MEDS: PCA HYDROmorphone 1mg/ml 30 ML IV PRN (04:38)
[2020-03-04] MEDS: Oxybutynin 5mg tab ORAL SCH ×3 (05:14→22:54)
[2020-03-04] MEDS: Acyclovir 200mg Cap ORAL SCH ×3 (05:15→22:54)
[2020-03-04] MEDS: NovoLOG Insulin Flexpen SUBQ SCH ×4 (05:25→18:00)
[2020-03-04 06:46] LABS: EOSINOPHILS % (AUTO) 5.7 % (0.0-3.0); LYMPHOCYTES % (AUTO) 17.5 % (20.0-45.0); MEAN CORPUSCULAR VOLUME 85 FL (80-99); MONOCYTES % (AUTO) 10.3 % (1.0-10.0); NEUTROPHILS % (AUTO) 65.5 % (45.0-75.0); PLATELET COUNT 248 K/UL (150-450); RED BLOOD COUNT 4.68 M/UL (4.20-5.40); RED CELL DISTRIBUTION WIDTH 11.9 % (11.6-14.8); WHITE BLOOD COUNT 9.9 K/UL (4.8-10.8)
[2020-03-04] MEDS: Abreva 10% cream 2gm TP SCH ×5 (07:00→18:55)
--- NOTE | 2020-03-04 07:13 | NUR ---
NURSE NOTES: Report received from Kwan CASTANON, rounds made. Patient resting in semi-fowlers position in bed, AOx4, calm. Abdominal pain 4/10, tolerating AUTOMOTIVE MACHINIST APPRENTICE Dilaudid (Bolus 0.2mg, every 6 minutes, 6 mg lockout), with NS at 10 ml/hr, TPN at 75 ml/hr via ASHKAN PICC, site/dressing CDI. RLQ Carlee Ileostomy appliance in place, dark green liquid output noted. Abdominal dressing CDI. Bilateral SCDs off, up to BSC frequently. Call light in reach, bed in lowest position, will continue to monitor. Addendum: 03/04/20 at 1536 by Mally Casas RN Reinforced NPO status, ice chips provided.
[2020-03-04 07:14] LABS: ALANINE AMINOTRANSFERASE 22 U/L (12-78); ALBUMIN 3.4 G/DL (3.4-5.0); ALBUMIN/GLOBULIN RATIO 1.3 (1.0-2.7); ALKALINE PHOSPHATASE 72 U/L (46-116); ANION GAP 9 mmol/L (5-15); ASPARTATE AMINO TRANSFERASE 30 U/L (15-37); BILIRUBIN,TOTAL 0.3 MG/DL (0.2-1.0); BLOOD UREA NITROGEN 7 mg/dL (7-18); CALCIUM 8.9 MG/DL (8.5-10.1); CARBON DIOXIDE 26 MMOL/L (21-32); CHLORIDE 101 MMOL/L (98-107); CREATININE 0.4 MG/DL (0.55-1.30); PHOSPHORUS 4.4 MG/DL (2.5-4.9); SODIUM 136 MMOL/L (136-145)
--- NOTE | 2020-03-04 07:21 | NUR ---
NURSE HAND-OFF: Important Events on Shift:pain management and nausea management, TPN started, no IV fluids running Patient Status: stable Diet: NPO Pending Orders: NA Pending Results/Labs:NA Pending MD notification:NA Latest Vital Signs: Temperature 99.5 , Pulse 105 , B/P 105 /64 , Respiratory Rate 17 , O2 SAT 95 , Room Air, O2 Flow Rate 3.0 . Vital Sign Comment: stable throughout shift, HR runs tachy but below 110 Latest Bray Fall Score: 15 Fall Risk: Low Risk Safety Measures: Call light Within Reach, Bed Alarm Zone 1, Side Rails Side Rails x2, Bed position Low and Locked. Fall Precautions: Yellow Socks Door Sign Patient Fall Education Report given to LG Bal.
[2020-03-04] MEDS: PCA shift volume MISC SCH ×2 (07:24→19:14)
[2020-03-04] MEDS ORDERED: Naloxone 0.4mg/ml Inj IVP PRN (08:44)
[2020-03-04] MEDS ORDERED: Rate Change PCA 1 Each MISC PRN (08:45)
[2020-03-04] MEDS ORDERED: PCA HYDROmorphone 1mg/ml 30 ML IV PRN (08:47)
--- NOTE | 2020-03-04 08:54 | General Progress Note ---
Progress Note Progress Note AVSS mild tachycardia. Having intermittent nausea and abdominal cramping pain. CT showed partial SBO with air-fluid levels. Patient made NPO and TPN started Abdomen distended, soft, incision clean, stoma stable Urine 5 - now on Ditropan and not voiding hourly Ileostomy only 140cc WBC down 9900 Hgb 13 K 5.0 Imp: Partial SBO Plan: NPO, TPN + IV fluids Solomon Marcial MD Mar 04, 2020 08:54
--- NOTE | 2020-03-04 08:55 | Urology Progress Note ---
Assessment/Plan Assessment/Plan: 1. Urinary frequency. 2. 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 3. Pyuria history. 4. Hematuria history. monitor clinically cont low dose ditropan for now d/w Dr. Marcial Subjective Allergies: Coded Allergies: IODINATED CONTRAST MEDIA (Verified Allergy, Severe, Shortness of Breath, 02/24/20) IODINE (Verified Allergy, Severe, Shortness of Breath, 02/24/20) MORPHINE (Verified Allergy, Intermediate, Hives, 02/24/20) SULFASALAZINE (Verified Allergy, Intermediate, Hives, 02/24/20) MESALAMINE (Verified Adverse Reaction, Mild, headache , 02/24/20) Subjective all noted, ileus, NPO Objective Last 24 Hour Vital Signs Date Time Temp Pulse Resp B/P (MAP) Pulse Ox O2 Delivery O2 Flow Rate FiO2 03/04/20 08:31 98.7 100 16 94/60 (71) 98 03/04/20 08:00 100 16 98 03/04/20 04:00 99.5 105 17 105/64 (78) 95 03/04/20 04:00 105 17 95 03/04/20 00:00 98.8 102 16 102/64 (77) 99 03/04/20 00:00 102 16 99 03/03/20 21:00 Room Air 03/03/20 20:00 102 17 98 03/03/20 20:00 99.9 102 17 106/63 (77) 98 03/03/20 16:00 114 18 100 03/03/20 16:00 98.8 114 18 105/68 (80) 100 03/03/20 12:00 61 20 100 03/03/20 12:00 99.2 61 20 104/68 (80) 100 03/03/20 09:00 Room Air Intake and Output 03/03/20 03/04/20 19:00 07:00 Intake Total 1270 ml 450 ml Output Total 1275 ml 940 ml Balance -5 ml -490 ml Intake Oral 445 ml IV Total 825 ml 450 ml Output Urine Total 1175 ml 900 ml Other 100 ml 40 ml # Voids 16 Microbiology Date/Time Source Procedure Growth Status 03/02/20 09:40 Urine,Clean Catch Urine Culture - Final Mixed Gram Positive Organism Complete 02/24/20 10:30 Nasopharynx SARS-CoV-2 RdRp Gene Assay - Final Complete Current Medications Medications (Trade) Dose Ordered Sig/Gus Route PRN Reason Start Time Stop Time Status Last Admin Dose Admin Acetaminophen (Tylenol) 650 mg Q4H PRN ORAL Mild Pain, temp over 100.2 02/25/20 10:15 03/26/20 10:14 Acyclovir (Zovirax) 400 mg EVERY 8 HOURS ORAL 03/01/20 15:00 03/31/20 14:59 03/04/20 05:15 Chlorhexidine Gluconate (Rose-Hex 2%) 1 applic DAILY@2000 TOPIC 02/24/20 20:00 05/24/20 19:59 03/03/20 19:57 Dextrose 1,000 ml @ 0 mls/hr Q24H PRN IV PN interrupted or unavailable 03/03/20 12:45 04/02/20 12:44 Dextrose 1,000 ml @ 50 mls/hr Q20H IV 03/04/20 09:00 04/03/20 08:59 Dextrose (Dextrose 50%) 25 ml Q30M PRN IV Hypoglycemia 03/03/20 12:45 06/01/20 12:44 Dextrose (Dextrose 50%) 50 ml Q30M PRN IV Hypoglycemia 03/03/20 12:45 06/01/20 12:44 Diphenhydramine HCl (Benadryl) 50 mg Q4H PRN ORAL Itching 03/02/20 12:00 04/01/20 11:59 03/03/20 23:56 Docosanol (Abreva) 1 gm FIVE TIMES A DAY TP 03/01/20 16:00 05/30/20 15:59 03/04/20 07:00 Fat Emulsion Intravenous 216 ml/Amino Acids/ Electrolytes/ Dextrose 1,800 ml @ 75 mls/hr Q24H IV 03/03/20 20:00 06/01/20 19:59 03/03/20 19:58 Hydromorphone HCl 30 ml @ 0 mls/hr Q24H PRN IV For Pain 03/04/20 08:47 03/06/20 08:46 Hydromorphone HCl (Dilaudid) 1 mg Q4H PRN SUBQ Severe Breakthru Pain (>7) 03/01/20 13:46 03/08/20 13:45 03/04/20 03:05 Hydroxyzine HCl (Atarax) 50 mg Q6H PRN ORAL Itching 02/28/20 11:30 03/29/20 11:29 03/04/20 03:06 Hyoscyamine Sulfate (Levsin) 0.125 mg Q6H PRN ORAL cramping 03/02/20 17:30 04/01/20 17:29 03/02/20 17:58 Insulin Aspart (NovoLOG) Q6HR SUBQ 03/04/20 00:00 06/02/20 00:00 Lorazepam (Ativan) 1 mg Q4H PRN SL Muscle Spasm 03/01/20 14:15 03/08/20 14:14 Miscellaneous Medication (MANAGER STRATEGIC SOURCING Rate Change) 1 ea DAILY PRN MISC rate change 03/04/20 08:45 03/08/20 04:30 Miscellaneous Medication (MANAGER STRATEGIC SOURCING shift volume) 1 ea Q12HR@0700,1900 MISC 03/04/20 19:00 03/08/20 09:30 Naloxone HCl (Narcan) 0.1 mg Q1M PRN IVP RR<10/min OR SBP<90 mmHg 03/04/20 08:44 03/08/20 04:30 Ondansetron HCl (Zofran) 4 mg Q4H PRN IVP Nausea & Vomiting 02/25/20 10:15 03/26/20 10:14 03/04/20 03:58 Oxybutynin Chloride (Ditropan) 2.5 mg Q8HR ORAL 03/02/20 22:00 04/01/20 21:59 03/04/20 05:14 Phytonadione (Vitamin K) 10 mg ONCE A WEEK SUBQ 03/04/20 09:00 06/02/20 08:59 Prochlorperazine (Compazine) 10 mg Q6H PRN IVP Nausea & Vomiting 02/25/20 10:30 03/26/20 10:29 03/02/20 08:44 Simethicone (Mylicon) 80 mg QID PRN ORAL Abdominal cramps, gas 02/29/20 09:30 05/29/20 09:29 02/29/20 10:00 Temazepam (RestoriL) 7.5 mg HSPRN PRN ORAL Insomnia 02/29/20 21:00 03/07/20 20:59 03/03/20 01:03 Laboratory Tests 03/03/20 23:52: POC Whole Blood Glucose 91 03/04/20 05:00: White Blood Count 9.9, Red Blood Count 4.68, Hemoglobin 13.0, Hematocrit 40.0, Mean Corpuscular Volume 85, Mean Corpuscular Hemoglobin 27.8, Mean Corpuscular Hemoglobin Concent 32.5, Red Cell Distribution Width 11.9, Platelet Count 248, Mean Platelet Volume 5.6L, Neutrophils (%) (Auto) 65.5, Lymphocytes (%) (Auto) 17.5L, Monocytes (%) (Auto) 10.3H, Eosinophils (%) (Auto) 5.7H, Basophils (%) (Auto) 1.0, Sodium Level 136, Potassium Level 5.0, Chloride Level 101, Carbon Dioxide Level 26, Anion Gap 9, Blood Urea Nitrogen 7, Creatinine 0.4L, Estimat Glomerular Filtration Rate > 60, Glucose Level 86, Calcium Level 8.9, Phosphorus Level 4.4, Magnesium Level 2.0, Total Bilirubin 0.3, Aspartate Amino Transf (AST/SGOT) 30, Alanine Aminotransferase (ALT/SGPT) 22, Alkaline Phosphatase 72, Total Protein 6.1L, Albumin 3.4, Globulin 2.7, Albumin/Globulin Ratio 1.3 03/04/20 05:07: POC Whole Blood Glucose 89 Height (Feet): 5 Height (Inches): 4.00 Weight (Pounds): 145 Objective exam stable Ja Marvin MD Mar 04, 2020 08:55
[2020-03-04] MEDS: Phytonadione 10 mg/mL 1ml amp SUBQ SCH (09:33)
--- NOTE | 2020-03-04 09:55 | NUR ---
CASE MANAGEMENT: REVIEW 03/04/2020 SI;ENTEROSTOMY MALFUNCTION. PARTIAL SBO. VS: T 99.5 HR 105 RR 17 B/P 105/64 SATS 95% ON RA LABS: CR 0.4 IS:TPN IV Q24H IV D5/LYTES @75ML/HR SENIOR ENGINEERING TEAM LEADER DILAUDID PROTOCOL ZOVIRAX PO TID ABREVA TP Q5XDAY MED/SURG PLAN OF CARE: NPO, TPN + IV fluids
--- NOTE | 2020-03-04 10:02 | NUR ---
INSURANCE CLINICAL AND REVIEW FAXED TO #[phone] FAX# [phone] REVIEWS/CLINICALS
[2020-03-04] MEDS: HydrOXYzine 50mg tab ORAL PRN (19:07)
--- NOTE | 2020-03-04 19:16 | NUR ---
NURSE HAND-OFF: Important Events on Shift:D5W Primary IV started at 50 ml/hr, Vitamin K SQ given Patient Status: stable Diet: NPO Outputs: Urine: 1325 ml Ileostomy: 20 ml Pending Orders: none Pending Results/Labs:none Pending MD notification:none Latest Vital Signs: Temperature 98.7 , Pulse 97 , B/P 96 /62 , Respiratory Rate 16 , O2 SAT 97 , Room Air, O2 Flow Rate 3.0 . Vital Sign Comment: none Latest Bray Fall Score: 15 Fall Risk: Low Risk Safety Measures: Call light Within Reach, Bed Alarm Zone 1, Side Rails Side Rails x2, Bed position Low and Locked. Fall Precautions: Yellow Socks Door Sign Patient Fall Education Report given to Kwan CASTANON.
[2020-03-04] MEDS: Dyna-Hex 2% Top Sol 2oz TOPIC SCH (20:32)
[2020-03-04] MEDS: Fat Emulsion Iv 20% 216 ML in Tpn 1,584 ML IV SCH (20:33)
--- NOTE | 2020-03-04 20:52 | NUR ---
NURSES NOTE: Pt in bed, A/OX4, denies pain currently. No outward s/s of distress noted. Breathing pattern is even and unlabored on RA. Ileo, RLQ in place, to be emptied end of shift. PICC line ASHKAN in place, patent, no signs of swelling, warmth. TPN running at 75cc/hr. VEHICLE CHECK IN CLERK pump- Dilaudid in place. Pt states current medication regimen is satisfactory. All due medications will be administered. Bed at lowest level. Call light within reach. Pt will continue to be monitored.
[2020-03-05] VITALS (7 sets, daily range): BP systolic 101–113; BP diastolic 59–71
[2020-03-05] MEDS: Hyoscyamine 0.125mg tab ORAL PRN ×3 (02:30→16:24)
[2020-03-05] MEDS: Acyclovir 200mg Cap ORAL SCH ×3 (05:39→21:09)
[2020-03-05] MEDS: Oxybutynin 5mg tab ORAL SCH (05:39)
[2020-03-05] MEDS: NovoLOG Insulin Flexpen SUBQ SCH ×4 (06:00→18:00)
[2020-03-05 06:29] LABS: BASOPHILS % (AUTO) 1.3 % (0.0-2.0); EOSINOPHILS % (AUTO) 7.1 % (0.0-3.0); HEMOGLOBIN 12.3 G/DL (12.0-16.0); LYMPHOCYTES % (AUTO) 25.3 % (20.0-45.0); MEAN CORPUSCULAR VOLUME 85 FL (80-99); MONOCYTES % (AUTO) 7.5 % (1.0-10.0); NEUTROPHILS % (AUTO) 58.8 % (45.0-75.0); PLATELET COUNT 268 K/UL (150-450); RED BLOOD COUNT 4.36 M/UL (4.20-5.40); RED CELL DISTRIBUTION WIDTH 11.7 % (11.6-14.8)
[2020-03-05 06:48] LABS: ALANINE AMINOTRANSFERASE 21 U/L (12-78); ALBUMIN 3.2 G/DL (3.4-5.0); ALKALINE PHOSPHATASE 68 U/L (46-116); ANION GAP 3 mmol/L (5-15); ASPARTATE AMINO TRANSFERASE 17 U/L (15-37); BILIRUBIN,TOTAL 0.2 MG/DL (0.2-1.0); BLOOD UREA NITROGEN 11 mg/dL (7-18); CALCIUM 9.2 MG/DL (8.5-10.1); CARBON DIOXIDE 32 MMOL/L (21-32); CHLORIDE 102 MMOL/L (98-107); CREATININE 0.6 MG/DL (0.55-1.30); POTASSIUM 3.8 MMOL/L (3.5-5.1); SODIUM 137 MMOL/L (136-145)
[2020-03-05] MEDS: Abreva 10% cream 2gm TP SCH ×5 (07:00→18:08)
[2020-03-05] MEDS: PCA shift volume MISC SCH ×2 (07:00→19:18)
--- NOTE | 2020-03-05 07:55 | NUR ---
NURSE NOTES: Received pt from LG Bianchi, pt was resting comfortably, pain control by POWDERED METAL SUPERVISOR, PICC ASHKAN clean and dry. call light w/in reach.
--- NOTE | 2020-03-05 08:21 | NUR ---
NURSE HAND-OFF: Important Events on Shift:[NONE] Patient Status: [STABLE] Diet: [NPO] Pending Orders: [NONE] Pending Results/Labs:[NONE] Pending MD notification:[NONE] Latest Vital Signs: Temperature 98.0 , Pulse 108 , B/P 101 /59 , Respiratory Rate 18 , O2 SAT 97 , Room Air, O2 Flow Rate 3.0 . Vital Sign Comment: [WNL] Latest Bray Fall Score: 15 Fall Risk: Low Risk Safety Measures: Call light Within Reach, Bed Alarm Zone 1, Side Rails Side Rails x2, Bed position Low and Locked. Fall Precautions: Yellow Socks Door Sign Patient Fall Education Report given to [MITUL CASTANON].
[2020-03-05] MEDS ORDERED: PCA HYDROmorphone 1mg/ml 30 ML IV PRN (08:47)
--- NOTE | 2020-03-05 09:09 | General Progress Note ---
Progress Note Progress Note AVSS with mild tachycardia Having intermittent cramping. Abdomen is distended, soft, incision clean, stoma pink, stable Urine 2725 Ileostomy 45cc labs all stable albumin 3.2 Imp: Persistent partial SBO vs ileus Plan; decrease Ditropan continue NPO, TPN may need f/u CT with non-iodine based oral contrast Solomon Marcial MD Mar 05, 2020 09:09
--- NOTE | 2020-03-05 09:13 | Urology Progress Note ---
Assessment/Plan Assessment/Plan: 1. Urinary frequency. 2. 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 3. Pyuria history. 4. Hematuria history. monitor clinically cont low dose ditropan for now cysto at some point electively Subjective Allergies: Coded Allergies: IODINATED CONTRAST MEDIA (Verified Allergy, Severe, Shortness of Breath, 02/24/20) IODINE (Verified Allergy, Severe, Shortness of Breath, 02/24/20) MORPHINE (Verified Allergy, Intermediate, Hives, 02/24/20) SULFASALAZINE (Verified Allergy, Intermediate, Hives, 02/24/20) MESALAMINE (Verified Adverse Reaction, Mild, headache , 02/24/20) Subjective all noted, remains NPO less urinary frequency, some difficulty initiating stream Objective Last 24 Hour Vital Signs Date Time Temp Pulse Resp B/P (MAP) Pulse Ox O2 Delivery O2 Flow Rate FiO2 03/05/20 08:24 Room Air 03/05/20 08:00 108 18 97 03/05/20 08:00 98.0 108 19 101/59 (73) 97 03/05/20 04:00 98.2 101 18 108/62 (77) 97 03/05/20 04:00 102 18 97 03/05/20 00:00 102 18 97 03/05/20 00:00 98.3 102 18 110/61 (77) 97 03/04/20 22:00 98.2 78 18 137/78 (97) 97 03/04/20 21:00 Room Air 03/04/20 20:00 98.3 97 17 104/64 (77) 99 03/04/20 20:00 97 17 99 03/04/20 19:05 97 Room Air 21 03/04/20 16:00 97 16 96 03/04/20 16:00 98.7 97 16 96/62 (73) 96 03/04/20 12:00 95 16 95 03/04/20 12:00 98.5 95 16 102/61 (75) 95 03/04/20 11:35 98 Room Air 21 Intake and Output 03/04/20 03/05/20 19:00 07:00 Intake Total 1350 ml 50 ml Output Total 1345 ml 1425 ml Balance 5 ml -1375 ml IV Total 1350 ml 50 ml Output Urine Total 1325 ml 1400 ml Other 20 ml 25 ml # Voids 7 4 Microbiology Date/Time Source Procedure Growth Status 03/02/20 09:40 Urine,Clean Catch Urine Culture - Final Mixed Gram Positive Organism Complete 02/24/20 10:30 Nasopharynx SARS-CoV-2 RdRp Gene Assay - Final Complete Current Medications Medications (Trade) Dose Ordered Sig/Gus Route PRN Reason Start Time Stop Time Status Last Admin Dose Admin Acetaminophen (Tylenol) 650 mg Q4H PRN ORAL Mild Pain, temp over 100.2 02/25/20 10:15 03/26/20 10:14 Acyclovir (Zovirax) 400 mg EVERY 8 HOURS ORAL 03/01/20 15:00 03/31/20 14:59 03/05/20 05:39 Chlorhexidine Gluconate (Rose-Hex 2%) 1 applic DAILY@2000 TOPIC 02/24/20 20:00 05/24/20 19:59 03/04/20 20:32 Dextrose 1,000 ml @ 0 mls/hr Q24H PRN IV PN interrupted or unavailable 03/03/20 12:45 04/02/20 12:44 Dextrose 1,000 ml @ 50 mls/hr Q20H IV 03/04/20 09:00 04/03/20 08:59 03/05/20 05:58 Dextrose (Dextrose 50%) 25 ml Q30M PRN IV Hypoglycemia 03/03/20 12:45 06/01/20 12:44 Dextrose (Dextrose 50%) 50 ml Q30M PRN IV Hypoglycemia 03/03/20 12:45 06/01/20 12:44 Diphenhydramine HCl (Benadryl) 50 mg Q4H PRN ORAL Itching 03/02/20 12:00 04/01/20 11:59 03/05/20 06:08 Docosanol (Abreva) 1 gm FIVE TIMES A DAY TP 03/01/20 16:00 05/30/20 15:59 03/05/20 07:00 Fat Emulsion Intravenous 216 ml/Amino Acids/ Electrolytes/ Dextrose 1,800 ml @ 75 mls/hr Q24H IV 03/03/20 20:00 06/01/20 19:59 03/04/20 20:33 Hydromorphone HCl 30 ml @ 0 mls/hr Q24H PRN IV For Pain 03/05/20 08:47 03/07/20 08:46 Hydromorphone HCl (Dilaudid) 1 mg Q4H PRN SUBQ Severe Breakthru Pain (>7) 03/01/20 13:46 03/08/20 13:45 03/04/20 23:01 Hydroxyzine HCl (Atarax) 50 mg Q6H PRN ORAL Itching 03/04/20 14:45 03/29/20 14:44 03/04/20 19:07 Hyoscyamine Sulfate (Levsin) 0.125 mg Q6H PRN ORAL cramping 03/02/20 17:30 04/01/20 17:29 03/05/20 02:30 Insulin Aspart (NovoLOG) Q6HR SUBQ 03/04/20 00:00 06/02/20 00:00 Lorazepam (Ativan) 1 mg Q4H PRN SL Muscle Spasm 03/01/20 14:15 03/08/20 14:14 Miscellaneous Medication (SURGICAL TECH Rate Change) 1 ea DAILY PRN MISC rate change 03/04/20 08:45 03/08/20 04:30 Miscellaneous Medication (SURGICAL TECH shift volume) 1 ea Q12HR@0700,1900 MISC 03/04/20 19:00 03/08/20 09:30 03/05/20 07:00 Naloxone HCl (Narcan) 0.1 mg Q1M PRN IVP RR<10/min OR SBP<90 mmHg 03/04/20 08:44 03/08/20 04:30 Ondansetron HCl (Zofran) 4 mg Q4H PRN IVP Nausea & Vomiting 02/25/20 10:15 03/26/20 10:14 03/05/20 02:35 Oxybutynin Chloride (Ditropan) 2.5 mg Q8HR PRN ORAL bladder spasms 03/05/20 09:15 04/01/20 21:59 UNV Phytonadione (Vitamin K) 10 mg ONCE A WEEK SUBQ 03/04/20 09:00 06/02/20 08:59 03/04/20 09:33 Prochlorperazine (Compazine) 10 mg Q6H PRN IVP Nausea & Vomiting 02/25/20 10:30 03/26/20 10:29 03/04/20 23:01 Simethicone (Mylicon) 80 mg QID PRN ORAL Abdominal cramps, gas 02/29/20 09:30 05/29/20 09:29 02/29/20 10:00 Temazepam (RestoriL) 7.5 mg HSPRN PRN ORAL Insomnia 03/05/20 21:00 03/12/20 20:59 Laboratory Tests 03/04/20 12:20: POC Whole Blood Glucose 111H 03/04/20 18:58: POC Whole Blood Glucose 99 03/05/20 00:09: POC Whole Blood Glucose 102 03/05/20 05:20: White Blood Count 8.0, Red Blood Count 4.36, Hemoglobin 12.3, Hematocrit 37.0, Mean Corpuscular Volume 85, Mean Corpuscular Hemoglobin 28.2, Mean Corpuscular Hemoglobin Concent 33.2, Red Cell Distribution Width 11.7, Platelet Count 268, Mean Platelet Volume 5.5L, Neutrophils (%) (Auto) 58.8, Lymphocytes (%) (Auto) 25.3, Monocytes (%) (Auto) 7.5, Eosinophils (%) (Auto) 7.1H, Basophils (%) (Auto) 1.3, Sodium Level 137, Potassium Level 3.8, Chloride Level 102, Carbon Dioxide Level 32, Anion Gap 3L, Blood Urea Nitrogen 11, Creatinine 0.6, Estimat Glomerular Filtration Rate > 60, Glucose Level 101, Calcium Level 9.2, Total Bilirubin 0.2, Aspartate Amino Transf (AST/SGOT) 17, Alanine Aminotransferase (ALT/SGPT) 21, Alkaline Phosphatase 68, Total Protein 6.3L, Albumin 3.2L, Globulin 3.1, Albumin/Globulin Ratio 1.0 03/05/20 06:12: POC Whole Blood Glucose 104 Height (Feet): 5 Height (Inches): 4.00 Weight (Pounds): 145 Objective exam stable Ja Marvin MD Mar 05, 2020 09:13
[2020-03-05] MEDS ORDERED: Oxybutynin 5mg tab ORAL PRN (09:15)
--- NOTE | 2020-03-05 11:23 | NUR ---
CASE MANAGEMENT:REVIEW 03/05/20 SI: POD #9 PERSISTENT PARTIAL SBO vs ILEUS 98.0 108 19 101/59 97% ON RA ALBUMIN-3.2 IS: [facility] DILAUDID TPN/IL@75/HR IVF@50/HR VIT K QWEEK ACYCLOVIR PO Q8HRS : MED/SURG STATUS 3 EAST PLAN: CONTINUE NPO AND TPN MAY NEED CT ABD
--- NOTE | 2020-03-05 19:21 | NUR ---
HAND-OFF: Report given to LG Blum, pt is in stable condition.
--- NOTE | 2020-03-05 19:30 | NUR ---
NURSE NOTES: Received report & pt from LG Michael. Pt lying in bed, a&ox4, in room air. No s/s of acute distress & c/o 2/10 pain. Carlee ileo intact. Surgical dressing C/D/I. PICC line intact with IVF & TPN running as ordered. HOUSEKEEPING AND LAUNDRY TEAM LEADER setting checked. Plan of care discussed.
[2020-03-05] MEDS: Dyna-Hex 2% Top Sol 2oz TOPIC SCH (20:55)
[2020-03-05] MEDS: Fat Emulsion Iv 20% 216 ML in Tpn 1,584 ML IV SCH (20:55)
[2020-03-06] VITALS (7 sets, daily range): BP systolic 92–105; BP diastolic 55–64
[2020-03-06] MEDS: Hyoscyamine 0.125mg tab ORAL PRN ×4 (00:04→19:13)
[2020-03-06] MEDS: Acyclovir 200mg Cap ORAL SCH ×3 (05:02→21:29)
[2020-03-06] MEDS: NovoLOG Insulin Flexpen SUBQ SCH ×4 (05:13→18:00)
[2020-03-06] MEDS: Abreva 10% cream 2gm TP SCH ×5 (06:03→18:23)
[2020-03-06 06:13] LABS: BASOPHILS % (AUTO) 1.2 % (0.0-2.0); EOSINOPHILS % (AUTO) 7.6 % (0.0-3.0); HEMATOCRIT 32.6 % (37.0-47.0); HEMOGLOBIN 10.9 G/DL (12.0-16.0); LYMPHOCYTES % (AUTO) 23.1 % (20.0-45.0); MEAN CORPUSCULAR VOLUME 85 FL (80-99); MONOCYTES % (AUTO) 11.6 % (1.0-10.0); NEUTROPHILS % (AUTO) 56.6 % (45.0-75.0); PLATELET COUNT 272 K/UL (150-450); RED BLOOD COUNT 3.84 M/UL (4.20-5.40); RED CELL DISTRIBUTION WIDTH 11.8 % (11.6-14.8)
--- NOTE | 2020-03-06 06:44 | NUR ---
NURSE HAND-OFF: Important Events on Shift:nausea management. Zofran given x 2. Levsin given x 2. Benadryl given x 2. Patient Status: stable Diet: NPO Pending Orders: Pending Results/Labs: Pending MD notification: Latest Vital Signs: Temperature 98.2 , Pulse 97 , B/P 92 /55 , Respiratory Rate 16 , O2 SAT 95 , Room Air, O2 Flow Rate 3.0 . Vital Sign Comment: Latest Bray Fall Score: 15 Fall Risk: Low Risk Safety Measures: Call light Within Reach, Bed Alarm Zone 1, Side Rails Side Rails x2, Bed position Low and Locked. Fall Precautions: Yellow Socks Door Sign Patient Fall Education Report given to . Addendum: 03/06/20 at 0732 by Viktoria Koenig RN Report given to LG Bal.
[2020-03-06 06:46] LABS: ALANINE AMINOTRANSFERASE 19 U/L (12-78); ALBUMIN 2.9 G/DL (3.4-5.0); ALKALINE PHOSPHATASE 69 U/L (46-116); ASPARTATE AMINO TRANSFERASE 19 U/L (15-37); BILIRUBIN,TOTAL 0.2 MG/DL (0.2-1.0); BLOOD UREA NITROGEN 11 mg/dL (7-18); CALCIUM 8.7 MG/DL (8.5-10.1); CARBON DIOXIDE 30 MMOL/L (21-32); CHLORIDE 102 MMOL/L (98-107); CREATININE 0.6 MG/DL (0.55-1.30); PHOSPHORUS 4.1 MG/DL (2.5-4.9); SODIUM 138 MMOL/L (136-145)
[2020-03-06] MEDS: PCA shift volume MISC SCH ×2 (07:00→19:23)
--- NOTE | 2020-03-06 07:27 | NUR ---
NURSE NOTES: Report received from Viktoria RN, rounds made. Patient resting in semi-fowlers position in bed, AOx4, calm. NPO status, ice chips provided. Abdominal pain 2/10, tolerating CENSUS TAKER Dilaudid (Bolus 0.2mg, every 6 minutes, 6 mg lockout), with D5W at 50 ml/hr, TPN at 75 ml/hr via ASHKAN PICC, site/dressing CDI. RLQ Carlee Ileostomy appliance in place, dark green liquid output noted. Abdominal dressing CDI. Bilateral SCDs off, wears compression stockings, up to BSC frequently. Call light in reach, bed in lowest position, will continue to monitor.
[2020-03-06] MEDS ORDERED: PCA HYDROmorphone 1mg/ml 30 ML IV PRN (09:00)
--- NOTE | 2020-03-06 09:29 | Urology Progress Note ---
Assessment/Plan Assessment/Plan: 1. Urinary frequency. 2. 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 3. Pyuria history. 4. Hematuria history. monitor clinically cont low dose ditropan for now cysto at some point electively Subjective Allergies: Coded Allergies: IODINATED CONTRAST MEDIA (Verified Allergy, Severe, Shortness of Breath, 02/24/20) IODINE (Verified Allergy, Severe, Shortness of Breath, 02/24/20) MORPHINE (Verified Allergy, Intermediate, Hives, 02/24/20) SULFASALAZINE (Verified Allergy, Intermediate, Hives, 02/24/20) MESALAMINE (Verified Adverse Reaction, Mild, headache , 02/24/20) Subjective all noted, remains NPO variable voiding sx's Objective Last 24 Hour Vital Signs Date Time Temp Pulse Resp B/P (MAP) Pulse Ox O2 Delivery O2 Flow Rate FiO2 03/06/20 04:00 97 16 95 03/06/20 04:00 98.2 97 16 92/55 (67) 95 03/06/20 00:18 104 18 95 03/06/20 00:00 98.9 104 18 98/61 (73) 95 03/05/20 21:00 Room Air 03/05/20 20:58 96 Room Air 21 03/05/20 20:00 92 16 97 03/05/20 20:00 98.1 92 16 105/65 (78) 97 03/05/20 16:00 101 18 97 03/05/20 16:00 99.2 98 19 103/64 (77) 96 03/05/20 12:00 101 18 97 03/05/20 11:55 97.7 101 19 113/71 (85) 96 Intake and Output 03/05/20 03/06/20 19:00 07:00 Intake Total 1375 ml Output Total 1410 ml 1015 ml Balance -1410 ml 360 ml IV Total 1375 ml Output Urine Total 1400 ml 1000 ml Other 10 ml 15 ml # Voids 2 Microbiology Date/Time Source Procedure Growth Status 03/02/20 09:40 Urine,Clean Catch Urine Culture - Final Mixed Gram Positive Organism Complete 02/24/20 10:30 Nasopharynx SARS-CoV-2 RdRp Gene Assay - Final Complete Current Medications Medications (Trade) Dose Ordered Sig/Gus Route PRN Reason Start Time Stop Time Status Last Admin Dose Admin Acetaminophen (Tylenol) 650 mg Q4H PRN ORAL Mild Pain, temp over 100.2 02/25/20 10:15 03/26/20 10:14 Acyclovir (Zovirax) 400 mg EVERY 8 HOURS ORAL 03/01/20 15:00 03/31/20 14:59 03/06/20 05:02 Chlorhexidine Gluconate (Rose-Hex 2%) 1 applic DAILY@2000 TOPIC 02/24/20 20:00 05/24/20 19:59 03/05/20 20:55 Dextrose 1,000 ml @ 0 mls/hr Q24H PRN IV PN interrupted or unavailable 03/03/20 12:45 04/02/20 12:44 Dextrose 1,000 ml @ 50 mls/hr Q20H IV 03/04/20 09:00 04/03/20 08:59 03/06/20 00:05 Dextrose (Dextrose 50%) 25 ml Q30M PRN IV Hypoglycemia 03/03/20 12:45 06/01/20 12:44 Dextrose (Dextrose 50%) 50 ml Q30M PRN IV Hypoglycemia 03/03/20 12:45 06/01/20 12:44 Diphenhydramine HCl (Benadryl) 50 mg Q4H PRN ORAL Itching 03/02/20 12:00 04/01/20 11:59 03/06/20 05:02 Docosanol (Abreva) 1 gm FIVE TIMES A DAY TP 03/01/20 16:00 05/30/20 15:59 03/06/20 06:03 Fat Emulsion Intravenous 216 ml/Amino Acids/ Electrolytes/ Dextrose 1,800 ml @ 75 mls/hr Q24H IV 03/03/20 20:00 06/01/20 19:59 03/05/20 20:55 Hydromorphone HCl 30 ml @ 0 mls/hr Q24H PRN IV For Pain 03/05/20 08:47 03/07/20 08:46 Hydromorphone HCl (Dilaudid) 1 mg Q4H PRN SUBQ Severe Breakthru Pain (>7) 03/01/20 13:46 03/08/20 13:45 03/04/20 23:01 Hydroxyzine HCl (Atarax) 50 mg Q6H PRN ORAL Itching 03/04/20 14:45 03/29/20 14:44 03/04/20 19:07 Hyoscyamine Sulfate (Levsin) 0.125 mg Q6H PRN ORAL cramping 03/02/20 17:30 04/01/20 17:29 03/06/20 06:03 Insulin Aspart (NovoLOG) Q6HR SUBQ 03/04/20 00:00 06/02/20 00:00 Lorazepam (Ativan) 1 mg Q4H PRN SL Muscle Spasm 03/01/20 14:15 03/08/20 14:14 Miscellaneous Medication (GENERAL SALES MANAGER Rate Change) 1 ea DAILY PRN MISC rate change 03/04/20 08:45 03/08/20 04:30 Miscellaneous Medication (GENERAL SALES MANAGER shift volume) 1 ea Q12HR@0700,1900 MISC 03/04/20 19:00 03/08/20 09:30 03/06/20 07:00 Naloxone HCl (Narcan) 0.1 mg Q1M PRN IVP RR<10/min OR SBP<90 mmHg 03/04/20 08:44 03/08/20 04:30 Ondansetron HCl (Zofran) 4 mg Q4H PRN IVP Nausea & Vomiting 02/25/20 10:15 03/26/20 10:14 03/06/20 06:25 Oxybutynin Chloride (Ditropan) 2.5 mg Q8H PRN ORAL bladder spasms 03/05/20 09:15 04/04/20 09:14 Phytonadione (Vitamin K) 10 mg ONCE A WEEK SUBQ 03/04/20 09:00 06/02/20 08:59 03/04/20 09:33 Prochlorperazine (Compazine) 10 mg Q6H PRN IVP Nausea & Vomiting 02/25/20 10:30 03/26/20 10:29 03/06/20 00:04 Simethicone (Mylicon) 80 mg QID PRN ORAL Abdominal cramps, gas 02/29/20 09:30 05/29/20 09:29 02/29/20 10:00 Temazepam (RestoriL) 7.5 mg HSPRN PRN ORAL Insomnia 03/05/20 21:00 10/3/20 20:59 Laboratory Tests 03/05/20 11:48: POC Whole Blood Glucose [Pending] 03/05/20 18:07: POC Whole Blood Glucose [Pending] 03/06/20 00:12: POC Whole Blood Glucose [Pending] 03/06/20 05:10: White Blood Count 7.0, Red Blood Count 3.84L, Hemoglobin 10.9L, Hematocrit 32.6L , Mean Corpuscular Volume 85, Mean Corpuscular Hemoglobin 28.4, Mean Corpuscular Hemoglobin Concent 33.5, Red Cell Distribution Width 11.8, Platelet Count 272, Mean Platelet Volume 6.0L, Neutrophils (%) (Auto) 56.6, Lymphocytes (%) (Auto) 23.1, Monocytes (%) (Auto) 11.6H, Eosinophils (%) (Auto) 7.6H, Basophils (%) (Auto) 1.2, Sodium Level 138, Potassium Level 4.0, Chloride Level 102, Carbon Dioxide Level 30, Blood Urea Nitrogen 11, Creatinine 0.6, Estimat Glomerular Filtration Rate > 60, Glucose Level 99, Calcium Level 8.7, Phosphorus Level 4.1, Magnesium Level 1.9, Total Bilirubin 0.2, Aspartate Amino Transf (AST/SGOT) 19, Alanine Aminotransferase (ALT/SGPT) 19, Alkaline Phosphatase 69, Total Protein 5.7L, Albumin 2.9L, Globulin 2.8, Albumin/Globulin Ratio 1.0 03/06/20 05:13: POC Whole Blood Glucose 107H Height (Feet): 5 Height (Inches): 4.00 Weight (Pounds): 145 Objective exam stable Ja Marvin MD Mar 06, 2020 09:29
[2020-03-06] MEDS ORDERED: Naloxone 0.4mg/ml Inj IVP PRN (09:53)
[2020-03-06] MEDS ORDERED: Rate Change PCA 1 Each MISC PRN (10:00)
--- NOTE | 2020-03-06 10:06 | General Progress Note ---
Progress Note Progress Note AVSS Still with intermittent cramping abdominal pain. Ambulates well Abdomen distended, incision clean, stoma stable Urine 2400 Ileostomy only 25cc enteric fluid Labs okay. albumin 2.9 Imp: early post-operative partial SBO Plan: Mineral oil 30cc po 2 doses today May need f/u CT with non-iodinated oral contrast continue NPO and TPN Solomon Marcial MD Mar 06, 2020 10:06
[2020-03-06] MEDS: HydrOXYzine 50mg tab ORAL PRN (10:33)
[2020-03-06] MEDS: Mineral Oil 30ml ud ORAL SCH ×2 (10:33→18:16)
--- NOTE | 2020-03-06 11:27 | NUR ---
CASE MANAGEMENT:REVIEW 03/06/20 SI: POD #10 PERSISTENT PARTIAL SBO vs ILEUS 98.7 107 20 99/64 93% ON RA IS: ROUTE SALESMAN DILAUDID TPN/IL@75/HR IVF@50/HR VIT K QWEEK ACYCLOVIR PO Q8HRS : MED/SURG STATUS 3 EAST PLAN: CONTINUE NPO AND TPN MAY NEED CT ABD
--- NOTE | 2020-03-06 19:23 | NUR ---
NURSE HAND-OFF: Important Events on Shift:Mineral Oil x2, CLINICAL SERVICES SPECIALIST syringe changed at 1822 Patient Status: stable Diet: NPO Outputs: Urine: 1250 ml Carlee: 20 ml Pending Orders: none Pending Results/Labs:CBC CMP 03/07 Pending MD notification:none Latest Vital Signs: Temperature 98.6 , Pulse 96 , B/P 96 /57 , Respiratory Rate 18 , O2 SAT 98 , Room Air, O2 Flow Rate 3.0 . Vital Sign Comment: none Latest Bray Fall Score: 15 Fall Risk: Low Risk Safety Measures: Call light Within Reach, Bed Alarm Zone 1, Side Rails Side Rails x2, Bed position Low and Locked. Fall Precautions: Yellow Socks Door Sign Patient Fall Education Report given to Viktoria CASTANON.
--- NOTE | 2020-03-06 19:32 | NUR ---
NURSE NOTES: Received report & pt from LG Bal. Pt lying in bed, a&ox4, in room air. No s/s of acute distress & c/o 06/19 pain, pain is controlled per pt. Carlee ileo intact. Surgical dressing C/D/I. PICC line intact with IVF & TPN running as ordered. PLANER OFFBEARER setting checked. Plan of care discussed.
[2020-03-06] MEDS: Dyna-Hex 2% Top Sol 2oz TOPIC SCH (20:00)
[2020-03-06] MEDS: Fat Emulsion Iv 20% 216 ML in Tpn 1,584 ML IV SCH (20:01)
[2020-03-07] VITALS (8 sets, daily range): BP systolic 93–122; BP diastolic 59–80
[2020-03-07] MEDS: Hyoscyamine 0.125mg tab ORAL PRN ×3 (01:32→15:10)
[2020-03-07] MEDS: NovoLOG Insulin Flexpen SUBQ SCH ×5 (05:30→17:22)
[2020-03-07 05:59] LABS: BASOPHILS % (AUTO) 2.2 % (0.0-2.0); EOSINOPHILS % (AUTO) 7.8 % (0.0-3.0); HEMATOCRIT 29.4 % (37.0-47.0); HEMOGLOBIN 9.8 G/DL (12.0-16.0); LYMPHOCYTES % (AUTO) 25.9 % (20.0-45.0); MEAN CORPUSCULAR VOLUME 84 FL (80-99); MONOCYTES % (AUTO) 7.9 % (1.0-10.0); NEUTROPHILS % (AUTO) 56.3 % (45.0-75.0); PLATELET COUNT 277 K/UL (150-450); RED BLOOD COUNT 3.51 M/UL (4.20-5.40); RED CELL DISTRIBUTION WIDTH 11.6 % (11.6-14.8); WHITE BLOOD COUNT 6.5 K/UL (4.8-10.8)
[2020-03-07] MEDS: Abreva 10% cream 2gm TP SCH ×5 (06:11→19:00)
[2020-03-07] MEDS: Acyclovir 200mg Cap ORAL SCH ×3 (06:11→13:13)
[2020-03-07 06:21] LABS: ALANINE AMINOTRANSFERASE 19 U/L (12-78); ALBUMIN 2.6 G/DL (3.4-5.0); ALBUMIN/GLOBULIN RATIO 0.8 (1.0-2.7); ALKALINE PHOSPHATASE 82 U/L (46-116); ANION GAP 4 mmol/L (5-15); ASPARTATE AMINO TRANSFERASE 22 U/L (15-37); BILIRUBIN,TOTAL 0.2 MG/DL (0.2-1.0); BLOOD UREA NITROGEN 12 mg/dL (7-18); CALCIUM 8.4 MG/DL (8.5-10.1); CARBON DIOXIDE 31 MMOL/L (21-32); CHLORIDE 105 MMOL/L (98-107); CREATININE 0.6 MG/DL (0.55-1.30); POTASSIUM 3.8 MMOL/L (3.5-5.1); SODIUM 140 MMOL/L (136-145)
--- NOTE | 2020-03-07 06:25 | NUR ---
NURSE HAND-OFF: Important Events on Shift: nausea, pain & itching management. Zofran x2, Levsin x 1, Benadryl x2. Ambulating to/from toilet bathroom to urinate. Patient Status: stable Diet: NPO Pending Orders: Pending Results/Labs: Pending MD notification: Latest Vital Signs: Temperature 98.8 , Pulse 101 , B/P 99 /59 , Respiratory Rate 16 , O2 SAT 96 , Room Air, O2 Flow Rate 3.0 . Vital Sign Comment: Latest Bray Fall Score: 15 Fall Risk: Low Risk Safety Measures: Call light Within Reach, Bed Alarm Zone 1, Side Rails Side Rails x2, Bed position Low and Locked. Fall Precautions: Yellow Socks Door Sign Patient Fall Education Report given to . Addendum: 03/07/20 at 0734 by Viktoria Koenig RN Report given to LG Meyers.
[2020-03-07] MEDS: PCA shift volume MISC SCH ×2 (07:00→19:16)
--- NOTE | 2020-03-07 08:21 | NUR ---
RD ASSESSMENT & RECOMMENDATIONS SEE CARE ACTIVITY FOR COMPLETE ASSESSMENT DAILY ESTIMATED NEEDS: Needs based on Surgery 57.6kg 25-30 kcals/kg 3136-0239 total kcals 1-2 g protein/kg 58-115 g total protein 25-30 mL/kg 8459-4239 total fluid mLs NUTRITION DIAGNOSIS: Altered GI fxn related to ileostomy revision as evidenced by pt w/ h/o BCIR, now w/ Carlee ileo, s/p laparotomy w/ revision, w/ early post-operative partial SBO, pt NPO, on TPN CURRENT DIET:NPO PO DIET RECOMMENDATIONS: DIET PER MD PARENTERAL NUTRITION RECOMMENDATIONS: D/AA Rate: 66 IL Rate: 9 Total Rate: 75 Volume: 1800 % Dextrose: 17 % AA: 5.3 Energy (kcals/kg): 1684 Protein (g/kg protein): 84 Nonprotein KCALS: 1348 GIR (mg CHO/kg/min): 3.2 % Fat KCALS: 26 NPC: N Ratio: 100.2:1 TPN Comment: * Maintain current TPN: D17% AA5.3% @ 66ml/hr + IL 20% @ 9ml/hr -> total of 75ml/hr, all 3:1 * TPN @ goal will provide 100% est kcal/prot needs (29kcal/1.46g prot per kg) ADDITIONAL RECOMMENDATIONS: 1) Obtain a standing weight as able 2) Monitor lytes, LFTs, BGs closely w/ TPN 3) Diet per
--- NOTE | 2020-03-07 08:59 | General Progress Note ---
Progress Note Progress Note AVSS Still with some cramping, and only 45cc ileostomy effluent/24 hours despite mineral oil po x 2 Abdomen only mildly distended, soft, incision clean, stoma pink Urine 2850 Ileostomy 45 enteric Hgb down 9.8 Albumin 2.6 Imp: Partial SBO vs ileus vs. ileostomy segment edema Plan: STAT 2 view abdomen XRay this AM continue TPN and NPO may need f/u CT scan with non-iodinated oral contrast and no IV contrast STAT serum iron, B12 and folic acid levels Solomon Marcial MD Mar 07, 2020 08:59
[2020-03-07] MEDS ORDERED: PCA HYDROmorphone 1mg/ml 30 ML IV PRN (09:00)
[2020-03-07 09:30] LABS: % IRON SATURATION 6 % (15-50); IRON 11 ug/dL (50-175); TOTAL IRON BINDING CAPACITY 173 ug/dL (250-450)
--- NOTE | 2020-03-07 09:54 | Urology Progress Note ---
Assessment/Plan Assessment/Plan: 1. Urinary frequency. 2. 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 3. Pyuria history. 4. Hematuria history. monitor clinically cont low dose ditropan for now, taking PRN cysto at some point electively Subjective Allergies: Coded Allergies: IODINATED CONTRAST MEDIA (Verified Allergy, Severe, Shortness of Breath, 02/24/20) IODINE (Verified Allergy, Severe, Shortness of Breath, 02/24/20) MORPHINE (Verified Allergy, Intermediate, Hives, 02/24/20) SULFASALAZINE (Verified Allergy, Intermediate, Hives, 02/24/20) MESALAMINE (Verified Adverse Reaction, Mild, headache , 02/24/20) Subjective all noted, remains NPO variable voiding sx's Objective Last 24 Hour Vital Signs Date Time Temp Pulse Resp B/P (MAP) Pulse Ox O2 Delivery O2 Flow Rate FiO2 03/07/20 09:00 104 18 96 03/07/20 08:00 97.9 104 18 109/66 (80) 96 03/07/20 04:00 98.8 101 16 99/59 (72) 96 03/07/20 04:00 101 16 96 03/07/20 00:15 102 16 94 03/07/20 00:06 98.7 102 16 96/59 (71) 94 03/06/20 21:00 Room Air 03/06/20 20:00 99 18 98 03/06/20 20:00 98.6 99 18 98/57 (71) 98 03/06/20 19:38 98 Room Air 21 03/06/20 16:00 98.6 96 18 96/57 (70) 96 03/06/20 16:00 96 18 96 03/06/20 12:00 98.8 90 20 105/62 (76) 94 03/06/20 12:00 90 20 94 Intake and Output 03/06/20 03/07/20 19:00 07:00 Intake Total 1375 ml 1500 ml Output Total 1270 ml 1625 ml Balance 105 ml -125 ml IV Total 1375 ml 1500 ml Output Urine Total 1250 ml 1600 ml Other 20 ml 25 ml # Voids 5 Microbiology Date/Time Source Procedure Growth Status 03/02/20 09:40 Urine,Clean Catch Urine Culture - Final Mixed Gram Positive Organism Complete 02/24/20 10:30 Nasopharynx SARS-CoV-2 RdRp Gene Assay - Final Complete Current Medications Medications (Trade) Dose Ordered Sig/Gus Route PRN Reason Start Time Stop Time Status Last Admin Dose Admin Acetaminophen (Tylenol) 650 mg Q4H PRN ORAL Mild Pain, temp over 100.2 02/25/20 10:15 03/26/20 10:14 Acyclovir (Zovirax) 400 mg EVERY 8 HOURS ORAL 03/01/20 15:00 03/31/20 14:59 03/07/20 06:11 Chlorhexidine Gluconate (Rose-Hex 2%) 1 applic DAILY@2000 TOPIC 02/24/20 20:00 05/24/20 19:59 03/06/20 20:00 Dextrose 1,000 ml @ 0 mls/hr Q24H PRN IV PN interrupted or unavailable 03/03/20 12:45 04/02/20 12:44 Dextrose 1,000 ml @ 50 mls/hr Q20H IV 03/04/20 09:00 04/03/20 08:59 03/06/20 18:22 Dextrose (Dextrose 50%) 25 ml Q30M PRN IV Hypoglycemia 03/03/20 12:45 06/01/20 12:44 Dextrose (Dextrose 50%) 50 ml Q30M PRN IV Hypoglycemia 03/03/20 12:45 06/01/20 12:44 Diphenhydramine HCl (Benadryl) 50 mg Q4H PRN ORAL Itching 03/02/20 12:00 04/01/20 11:59 03/07/20 08:53 Docosanol (Abreva) 1 gm FIVE TIMES A DAY TP 03/01/20 16:00 05/30/20 15:59 03/07/20 08:53 Fat Emulsion Intravenous 216 ml/Amino Acids/ Electrolytes/ Dextrose 1,800 ml @ 75 mls/hr Q24H IV 03/03/20 20:00 06/01/20 19:59 03/06/20 20:01 Hydromorphone HCl 30 ml @ 0 mls/hr Q24H PRN IV For Pain 03/07/20 09:00 03/09/20 08:59 Hydromorphone HCl (Dilaudid) 1 mg Q4H PRN SUBQ Severe Breakthru Pain (>7) 03/06/20 13:46 10/20 13:45 Hydroxyzine HCl (Atarax) 50 mg Q6H PRN ORAL Itching 03/04/20 14:45 03/29/20 14:44 03/06/20 10:33 Hyoscyamine Sulfate (Levsin) 0.125 mg Q6H PRN ORAL cramping 03/02/20 17:30 04/01/20 17:29 03/07/20 07:41 Insulin Aspart (NovoLOG) Q6HR SUBQ 03/04/20 00:00 06/02/20 00:00 Lorazepam (Ativan) 1 mg Q4H PRN SL Muscle Spasm 03/01/20 14:15 03/08/20 14:14 Miscellaneous Medication (SPECTROGRAPH OPERATOR Rate Change) 1 ea DAILY PRN MISC rate change 03/06/20 10:00 03/10/20 05:45 Miscellaneous Medication (SPECTROGRAPH OPERATOR shift volume) 1 ea Q12HR@0700,1900 MISC 03/06/20 19:00 03/10/20 09:30 03/07/20 07:00 Naloxone HCl (Narcan) 0.1 mg Q1M PRN IVP RR<10/min OR SBP<90 mmHg 03/06/20 09:53 03/10/20 05:38 Ondansetron HCl (Zofran) 4 mg Q4H PRN IVP Nausea & Vomiting 02/25/20 10:15 03/26/20 10:14 03/07/20 08:53 Oxybutynin Chloride (Ditropan) 2.5 mg Q8H PRN ORAL bladder spasms 03/05/20 09:15 04/04/20 09:14 Phytonadione (Vitamin K) 10 mg ONCE A WEEK SUBQ 03/04/20 09:00 06/02/20 08:59 03/04/20 09:33 Prochlorperazine (Compazine) 10 mg Q6H PRN IVP Nausea & Vomiting 02/25/20 10:30 03/26/20 10:29 03/06/20 00:04 Simethicone (Mylicon) 80 mg QID PRN ORAL Abdominal cramps, gas 02/29/20 09:30 05/29/20 09:29 02/29/20 10:00 Temazepam (RestoriL) 7.5 mg HSPRN PRN ORAL Insomnia 03/05/20 21:00 03/12/20 20:59 03/06/20 23:56 Laboratory Tests 03/06/20 12:52: POC Whole Blood Glucose 104 03/06/20 18:32: POC Whole Blood Glucose 102 03/06/20 23:58: POC Whole Blood Glucose [Pending] 03/07/20 05:00: White Blood Count 6.5, Red Blood Count 3.51L, Hemoglobin 9.8L, Hematocrit 29.4L, Mean Corpuscular Volume 84, Mean Corpuscular Hemoglobin 28.0, Mean Corpuscular Hemoglobin Concent 33.4, Red Cell Distribution Width 11.6, Platelet Count 277, Mean Platelet Volume 6.1L, Neutrophils (%) (Auto) 56.3, Lymphocytes (%) (Auto) 25.9, Monocytes (%) (Auto) 7.9, Eosinophils (%) (Auto) 7.8H, Basophils (%) (Auto) 2.2H, Sodium Level 140, Potassium Level 3.8, Chloride Level 105, Carbon Dioxide Level 31, Anion Gap 4L, Blood Urea Nitrogen 12, Creatinine 0.6, Estimat Glomerular Filtration Rate > 60, Glucose Level 96, Calcium Level 8.4L, Total Bilirubin 0.2, Aspartate Amino Transf (AST/SGOT) 22, Alanine Aminotransferase (ALT/SGPT) 19, Alkaline Phosphatase 82, Total Protein 5.8L, Albumin 2.6L, Globulin 3.2, Albumin/Globulin Ratio 0.8L 03/07/20 07:00: Iron Level 11L, Total Iron Binding Capacity 173L, Percent Iron Saturation 6L, Un saturated Iron Binding 162, Vitamin B12 Level 508, Folate 13.4 Height (Feet): 5 Height (Inches): 4.00 Weight (Pounds): 145 Objective exam stable Ja Marvin MD Mar 07, 2020 09:54
--- NOTE | 2020-03-07 14:44 | NUR ---
CASE MANAGEMENT:REVIEW 03/06/20 SI: ABDOMINAL DISTENTION . POD #11 PERSISTENT PARTIAL SBO vs ILEUS UNABLE TO CONVERT TO BCIR POUCH D/T ONLY 11FT COLON 98.7 106 18 99/59 96% ON RA IS: MICROFILM CAMERA OPERATOR DILAUDID TPN/IL@75/HR IVF@50/HR VIT K QWEEK ACYCLOVIR PO Q8HRS X-RAY ABD- Gas pattern is unremarkable. There are midline skin quan noted. No significant air-fluid levels or evidence of free intraperitoneal gas. There is a right lower quadrant stoma noted. Previously demonstrated pelvic drainage catheter has been removed. : MED/SURG STATUS 3 EAST PLAN: CONTINUE NPO AND TPN CT ABD W/ CONTRAST THEN ENDOSCOPY TO FOLLOW
--- NOTE | 2020-03-07 14:47 | Diagnostic Imaging Report ---
Indication: Abdominal distention Technique: Supine and upright view of the abdomen Comparison: 03/02/2020 Findings: , Gas pattern is unremarkable. There are midline skin quan noted. No significant air-fluid levels or evidence of free intraperitoneal gas. There is a right lower quadrant stoma noted. Previously demonstrated pelvic drainage catheter has been removed. Impression: No acute process
--- NOTE | 2020-03-07 19:00 | NUR ---
NURSE NOTES: pt stable,remains NPO, pt afebrile all shift , pt only get up and ambulated to the bathroom, pt encouraged to ambulate and stated she will try tomorrow . pt continues ask for Benadryl and Zofran around the clock for nausea and itching , PATHOLOGY LABORATORY TECHNOLOGIST changeD AT 1900, will endorse plan of care Carlee Ileo 40 Urine out put 1849
--- NOTE | 2020-03-07 19:44 | NUR ---
NURSES NOTE: Pt in bed, A/OX4, denies pain currently. No outward s/s of distress noted. Breathing pattern is even and unlabored on RA. Carlee Henderson, RLQ, in place. Pt empties bag herself. ASHKAN PICC line in place. No redness, warmth, or swelling noted. Infusing TPN 75cc/hr. ELECTRONIC ENGRAVER pump-Dilaudid in place. Pt states current pain regimen is effective. All due medications will be administered. Bed at lowest level, call light within reach. Pt will continue to be monitored.
--- NOTE | 2020-03-07 19:45 | NUR ---
NURSE HAND-OFF: Important Events on Shift: Patient Status: stable Diet: NPO Pending Orders: Pending Results/Labs: Pending MD notification: Latest Vital Signs: Temperature 98.4 , Pulse 106 , B/P 93 /62 , Respiratory Rate 17 , O2 SAT 99 , Room Air, O2 Flow Rate 3.0 . Vital Sign Comment: Latest Bray Fall Score: 15 Fall Risk: Low Risk Safety Measures: Call light Within Reach, Bed Alarm Zone 1, Side Rails Side Rails x2, Bed position Low and Locked. Fall Precautions: Yellow Socks Door Sign Patient Fall Education Report given to Tash CASTANON.
[2020-03-07] MEDS: Fat Emulsion Iv 20% 216 ML in Tpn 1,584 ML IV SCH (20:29)
[2020-03-07] MEDS: Iron Sucrose 200 MG in NS 110 ML IV SCH (20:29)
[2020-03-07] MEDS: Dyna-Hex 2% Top Sol 2oz TOPIC SCH (20:29)
[2020-03-08 04:00] VITALS: BP 95/55
[2020-03-08] MEDS: Acyclovir 200mg Cap ORAL SCH ×3 (05:13→23:07)
[2020-03-08] MEDS: NovoLOG Insulin Flexpen SUBQ SCH ×3 (05:23→18:00)
[2020-03-08 05:45] LABS: BASOPHILS % (AUTO) 1.5 % (0.0-2.0); EOSINOPHILS % (AUTO) 5.7 % (0.0-3.0); HEMATOCRIT 33.8 % (37.0-47.0); HEMOGLOBIN 11.2 G/DL (12.0-16.0); MEAN CORPUSCULAR VOLUME 83 FL (80-99); MONOCYTES % (AUTO) 12.5 % (1.0-10.0); NEUTROPHILS % (AUTO) 74.4 % (45.0-75.0); PLATELET COUNT 322 K/UL (150-450); RED BLOOD COUNT 4.05 M/UL (4.20-5.40); RED CELL DISTRIBUTION WIDTH 11.5 % (11.6-14.8); WHITE BLOOD COUNT 7.3 K/UL (4.8-10.8)
[2020-03-08 05:52] LABS: ALANINE AMINOTRANSFERASE 28 U/L (12-78); ALBUMIN 2.8 G/DL (3.4-5.0); ALBUMIN/GLOBULIN RATIO 0.9 (1.0-2.7); ALKALINE PHOSPHATASE 100 U/L (46-116); ANION GAP 7 mmol/L (5-15); ASPARTATE AMINO TRANSFERASE 35 U/L (15-37); BILIRUBIN,TOTAL 0.3 MG/DL (0.2-1.0); BLOOD UREA NITROGEN 12 mg/dL (7-18); CARBON DIOXIDE 28 MMOL/L (21-32); CHLORIDE 105 MMOL/L (98-107); CREATININE 0.6 MG/DL (0.55-1.30); PHOSPHORUS 3.6 MG/DL (2.5-4.9); POTASSIUM 4.2 MMOL/L (3.5-5.1); SODIUM 139 MMOL/L (136-145)
[2020-03-08] MEDS: Abreva 10% cream 2gm TP SCH ×5 (06:34→20:43)
--- NOTE | 2020-03-08 06:39 | NUR ---
NURSE HAND-OFF: Important Events on Shift:[Cath gary needed for ASHKAN PICC line] Patient Status: [STABE] Diet: [NPO] Pending Orders: [NONE] Pending Results/Labs:[NONE] Pending MD notification:[Cath gary needed for PICC line] Latest Vital Signs: Temperature 98.9 , Pulse 102 , B/P 95 /55 , Respiratory Rate 18 , O2 SAT 100 , Room Air, O2 Flow Rate 3.0 . Vital Sign Comment: [WNL] Latest Bray Fall Score: 15 Fall Risk: Low Risk Safety Measures: Call light Within Reach, Bed Alarm Zone 1, Side Rails Side Rails x2, Bed position Low and Locked. Fall Precautions: Yellow Socks Door Sign Patient Fall Education Report given to [].
--- NOTE | 2020-03-08 07:10 | NUR ---
NURSE NOTES: Received report from Tash RN, rounds made, pt awake a/ox4, breaths regular and unlabored on RA , pt has a Picc on the ASHKAN with IVF intact patent asymptomatic, pt denies any pain at this time , pt on INSTRUCTIONAL PARAPROFESSIONAL Dilaudid for pain management , Carlee ileo on the R lower quad , bag intact , abd dressing clean intact , , bed in low locked position, call light with in reach will continue to Monitor
[2020-03-08] MEDS: PCA shift volume MISC SCH ×2 (07:27→19:00)
--- NOTE | 2020-03-08 07:31 | NUR ---
HAND OFF: Report given to LG Meyers.
[2020-03-08 08:00] VITALS: BP 105/58
--- NOTE | 2020-03-08 08:01 | Urology Progress Note ---
Assessment/Plan Assessment/Plan: 1. Urinary frequency. 2. 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 3. Pyuria history. 4. Hematuria history. monitor clinically cont low dose ditropan for now, taking PRN cysto at some point electively Subjective Allergies: Coded Allergies: IODINATED CONTRAST MEDIA (Verified Allergy, Severe, Shortness of Breath, 02/24/20) IODINE (Verified Allergy, Severe, Shortness of Breath, 02/24/20) MORPHINE (Verified Allergy, Intermediate, Hives, 02/24/20) SULFASALAZINE (Verified Allergy, Intermediate, Hives, 02/24/20) MESALAMINE (Verified Adverse Reaction, Mild, headache , 02/24/20) Subjective all noted, remains NPO variable voiding sx's Objective Last 24 Hour Vital Signs Date Time Temp Pulse Resp B/P (MAP) Pulse Ox O2 Delivery O2 Flow Rate FiO2 03/08/20 07:53 18 03/08/20 04:00 98.9 102 18 95/55 (68) 100 03/08/20 04:00 102 18 100 03/07/20 21:00 Room Air 03/07/20 20:24 97 Room Air 21 03/07/20 20:00 108 17 97 03/07/20 20:00 98.1 108 18 102/66 (78) 97 03/07/20 16:00 106 17 99 03/07/20 16:00 98.4 100 17 93/62 (72) 99 03/07/20 12:00 106 18 99 03/07/20 12:00 98.7 106 18 122/80 (94) 99 03/07/20 09:00 Room Air 03/07/20 09:00 104 18 96 Intake and Output 03/07/20 03/08/20 19:00 07:00 Output Total 1890 ml 1550 ml Balance -1890 ml -1550 ml Output Urine Total 1850 ml 1525 ml Other 40 ml 25 ml # Voids 4 Microbiology Date/Time Source Procedure Growth Status 03/02/20 09:40 Urine,Clean Catch Urine Culture - Final Mixed Gram Positive Organism Complete 02/24/20 10:30 Nasopharynx SARS-CoV-2 RdRp Gene Assay - Final Complete Current Medications Medications (Trade) Dose Ordered Sig/Gus Route PRN Reason Start Time Stop Time Status Last Admin Dose Admin Acetaminophen (Tylenol) 650 mg Q4H PRN ORAL Mild Pain, temp over 100.2 02/25/20 10:15 03/26/20 10:14 Acyclovir (Zovirax) 400 mg EVERY 8 HOURS ORAL 03/01/20 15:00 03/31/20 14:59 03/08/20 05:13 Chlorhexidine Gluconate (Rose-Hex 2%) 1 applic DAILY@2000 TOPIC 02/24/20 20:00 05/24/20 19:59 03/07/20 20:29 Dextrose 1,000 ml @ 0 mls/hr Q24H PRN IV PN interrupted or unavailable 03/03/20 12:45 04/02/20 12:44 Dextrose 1,000 ml @ 50 mls/hr Q20H IV 03/04/20 09:00 04/03/20 08:59 03/07/20 17:23 Dextrose (Dextrose 50%) 25 ml Q30M PRN IV Hypoglycemia 03/03/20 12:45 06/01/20 12:44 Dextrose (Dextrose 50%) 50 ml Q30M PRN IV Hypoglycemia 03/03/20 12:45 06/01/20 12:44 Diphenhydramine HCl (Benadryl) 50 mg Q4H PRN ORAL Itching 03/02/20 12:00 04/01/20 11:59 03/08/20 07:48 Docosanol (Abreva) 1 gm FIVE TIMES A DAY TP 03/01/20 16:00 05/30/20 15:59 03/08/20 06:34 Fat Emulsion Intravenous 216 ml/Amino Acids/ Electrolytes/ Dextrose 1,800 ml @ 75 mls/hr Q24H IV 03/03/20 20:00 06/01/20 19:59 03/07/20 20:29 Hydromorphone HCl 30 ml @ 0 mls/hr Q24H PRN IV For Pain 03/07/20 09:00 03/09/20 08:59 03/07/20 18:52 Hydromorphone HCl (Dilaudid) 1 mg Q4H PRN SUBQ Severe Breakthru Pain (>7) 03/06/20 13:46 03/13/20 13:45 Hydroxyzine HCl (Atarax) 50 mg Q6H PRN ORAL Itching 03/04/20 14:45 03/29/20 14:44 03/06/20 10:33 Hyoscyamine Sulfate (Levsin) 0.125 mg Q6H PRN ORAL cramping 03/02/20 17:30 04/01/20 17:29 03/07/20 15:10 Insulin Aspart (NovoLOG) Q6HR SUBQ 03/04/20 00:00 06/02/20 00:00 Iron Sucrose 200 mg/Sodium Chloride 120 ml @ 240 mls/hr BEDTIME IV 03/07/20 21:00 03/11/20 21:29 03/07/20 20:29 Lorazepam (Ativan) 1 mg Q4H PRN SL Muscle Spasm 03/01/20 14:15 03/08/20 14:14 Miscellaneous Medication (DENTURE LABORATORY TECHNICIAN Rate Change) 1 ea DAILY PRN MISC rate change 03/06/20 10:00 03/10/20 05:45 Miscellaneous Medication (DENTURE LABORATORY TECHNICIAN shift volume) 1 ea Q12HR@0700,1900 MISC 03/06/20 19:00 03/10/20 09:30 03/08/20 07:27 Naloxone HCl (Narcan) 0.1 mg Q1M PRN IVP RR<10/min OR SBP<90 mmHg 03/06/20 09:53 03/10/20 05:38 Ondansetron HCl (Zofran) 4 mg Q4H PRN IVP Nausea & Vomiting 02/25/20 10:15 03/26/20 10:14 03/08/20 07:48 Oxybutynin Chloride (Ditropan) 2.5 mg Q8H PRN ORAL bladder spasms 03/05/20 09:15 04/04/20 09:14 Phytonadione (Vitamin K) 10 mg ONCE A WEEK SUBQ 03/04/20 09:00 06/02/20 08:59 03/04/20 09:33 Prochlorperazine (Compazine) 10 mg Q6H PRN IVP Nausea & Vomiting 02/25/20 10:30 03/26/20 10:29 03/08/20 05:13 Simethicone (Mylicon) 80 mg QID PRN ORAL Abdominal cramps, gas 02/29/20 09:30 05/29/20 09:29 02/29/20 10:00 Temazepam (RestoriL) 7.5 mg HSPRN PRN ORAL Insomnia 03/05/20 21:00 03/12/20 20:59 03/06/20 23:56 Laboratory Tests 03/07/20 12:12: POC Whole Blood Glucose 103 03/07/20 17:21: POC Whole Blood Glucose 90 03/07/20 23:19: POC Whole Blood Glucose 118H 03/08/20 04:54: POC Whole Blood Glucose 103 03/08/20 05:15: White Blood Count 7.3, Red Blood Count 4.05L, Hemoglobin 11.2L, Hematocrit 33.8L , Mean Corpuscular Volume 83, Mean Corpuscular Hemoglobin 27.8, Mean Corpuscular Hemoglobin Concent 33.3, Red Cell Distribution Width 11.5L, Platelet Count 322, Mean Platelet Volume 6.0L, Neutrophils (%) (Auto) 74.4, Lymphocytes (%) (Auto) 6.0L, Monocytes (%) (Auto) 12.5H, Eosinophils (%) (Auto) 5.7H, Basophils (%) (Auto) 1.5, Sodium Level 139, Potassium Level 4.2, Chloride Level 105, Carbon Dioxide Level 28, Anion Gap 7, Blood Urea Nitrogen 12, Creatinine 0.6, Estimat Glomerular Filtration Rate > 60, Glucose Level 102, Calcium Level 9.0, Phosphorus Level 3.6, Magnesium Level 2.0, Total Bilirubin 0.3, Aspartate Amino Transf (AST/SGOT) 35, Alanine Aminotransferase (ALT/SGPT) 28, Alkaline Phosphatase 100, Total Protein 6.0L, Albumin 2.8L, Globulin 3.2, Albumin/Globulin Ratio 0.9L Height (Feet): 5 Height (Inches): 4.00 Weight (Pounds): 145 Objective exam stable Ja Marvin MD Mar 08, 2020 08:01
--- NOTE | 2020-03-08 08:19 | General Progress Note ---
Progress Note Progress Note AVSS No change clinically - intermittent cramping, minimal ileostomy output stool or gas, occasional nausea Abdomen only mildly distended, soft, incision clean, stoma stable Urine 3375 Ileostomy 65 Hgb up 11.2 albumin 2.8 - on TPN XRay 2 view abdomen - no dilated loops seen Imp: Persistent ileus vs. partial SBO ? etiology Plan: STAT CT scan with Readi-CAT barium oral contrast and no IV contrast (allergy to oral and IV Iodine) (discussed with Dr. Little) continue npo, TPN, Solomon Gutierres MD Mar 08, 2020 08:19
[2020-03-08] MEDS ORDERED: Naloxone 0.4mg/ml Inj IVP PRN (09:00)
[2020-03-08] MEDS ORDERED: PCA HYDROmorphone 1mg/ml 30 ML IV PRN (09:00)
[2020-03-08] MEDS ORDERED: Rate Change PCA 1 Each MISC PRN (09:00)
[2020-03-08 12:00] VITALS: BP 111/66
[2020-03-08] MEDS ORDERED: Cathflo Alteplase 2mg Inj INJ SCH (12:00)
--- NOTE | 2020-03-08 12:16 | Diagnostic Imaging Report ---
CT ABDOMEN AND PELVIS WITHOUT CONTRAST INDICATION: Abdominal pain TECHNIQUE: Continuous helical transaxial imaging of the abdomen and pelvis was obtained from the lung bases to the pubic symphysis. Coronal 2-D reformats were also obtained. Study obtained in a Siemens sensation [address] Automatic Exposure Control was utilized. Total Dose length Product (DLP): 243.[address] Dose Index Volume (CTDIvol): 4.8 mGy COMPARISON: CT abdomen pelvis dated 03/03/2020 FINDINGS: Lower chest:: Status post bilateral breast augmentation. Hepatobiliary:: Unremarkable Genitourinary:: Uterus is surgically absent. Punctate nonobstructing right nephrolithiasis. Adrenals:: Unremarkable Pancreas:: Unremarkable Gastrointestinal:: Status post colectomy with creation of right lower quadrant ileostomy. There is mild dilation of multiple loops of bowel, some of which demonstrate air-fluid levels, similar appearance to prior examination. Oral contrast opacifies the proximal small bowel but does not reach the ileostomy. Spleen: : Unremarkable Peritoneum:: Slight interval decrease in pneumoperitoneum, with residual intrahepatic gas bubble in the lower pelvis anterior to the bladder. Redemonstration of fluid pocket in the dependent left hemipelvis. There is trace free fluid layering or pelvis. Bones and soft tissues:: There are multilevel discogenic degenerative changes of the visualized spine. Postsurgical changes are noted along the lower midline abdomen. IMPRESSION: 1. Status post colectomy with right lower quadrant ileostomy creation; mildly dilated small bowel with air-fluid levels, with an appearance favoring ileus as opposed to obstruction given degree of distention. No contrast is noted reaching the ileostomy. 2. Pocket of fluid in the left dependent hemipelvis, which may represent developing phlegmon/abscess; however, evaluation is limited in the absence of intravenous contrast. 3. Interval slight improvement in pneumoperitoneum. The CT scanner at [facility] is accredited by the [employer] and the scans are performed using protocols designed to limit radiation exposure to as low as reasonably achievable to attain images of sufficient resolution adequate for diagnostic evaluation
[2020-03-08] MEDS ORDERED: Lactulose 20gm/30ml UDC ORAL SCH (13:15)
[2020-03-08 16:00] VITALS: BP 96/58
--- NOTE | 2020-03-08 18:29 | NUR ---
INSURANCE [employer]INICALS/INTERQUAL FAXED TO [employer] [phone]
--- NOTE | 2020-03-08 19:51 | NUR ---
NURSES NOTES: Pt in bed, A/OX4. Denies pain at this moment. No outward s/s of distress noted. Breathing pattern was even and unlabored on RA. PRINTED PRODUCTS ASSEMBLER pump Dilaudid running efficiently. Pt states current medication regimen is efficient. Ileo collecting bag RLQ changed today. ASHKAN PICC line in place. No symptoms of infection noted. Dressing to be changed NOC shift. All due medications will be administered. Bed at lowest level. Call light within reach. Pt will continue to be monitored.
[2020-03-08 20:00] VITALS: BP 103/60
--- NOTE | 2020-03-08 20:17 | NUR ---
NURSE HAND-OFF: Important Events on Shift: Patient Status: stable Diet: NPO Pending Orders: Pending Results/Labs: Pending MD notification: Latest Vital Signs: Temperature 97.7 , Pulse 96 , B/P 96 /58 , Respiratory Rate 18 , O2 SAT 96 , Room Air, O2 Flow Rate 3.0 . Vital Sign Comment: Latest Bray Fall Score: 15 Fall Risk: Low Risk Safety Measures: Call light Within Reach, Bed Alarm Zone 1, Side Rails Side Rails x2, Bed position Low and Locked. Fall Precautions: Yellow Socks Door Sign Patient Fall Education Report given to Shayy CASTANON
[2020-03-08] MEDS: Iron Sucrose 200 MG in NS 110 ML IV SCH (20:36)
[2020-03-08] MEDS: Hyoscyamine 0.125mg tab ORAL PRN (20:36)
[2020-03-08] MEDS: Dyna-Hex 2% Top Sol 2oz TOPIC SCH (20:36)
[2020-03-08] MEDS: Fat Emulsion Iv 20% 216 ML in Tpn 1,584 ML IV SCH (20:39)
[2020-03-09] VITALS: BP_SYST 100; BP_DIAS 56; BP_DIAS 59
[2020-03-09 04:00] VITALS: BP 103/61
[2020-03-09] MEDS: NovoLOG Insulin Flexpen SUBQ SCH ×4 (06:00→18:00)
[2020-03-09] MEDS: Acyclovir 200mg Cap ORAL SCH ×3 (06:03→21:03)
[2020-03-09 06:13] LABS: BASOPHILS % (AUTO) 1.8 % (0.0-2.0); EOSINOPHILS % (AUTO) 7.3 % (0.0-3.0); HEMATOCRIT 32.7 % (37.0-47.0); HEMOGLOBIN 10.8 G/DL (12.0-16.0); LYMPHOCYTES % (AUTO) 16.3 % (20.0-45.0); MEAN CORPUSCULAR VOLUME 83 FL (80-99); MONOCYTES % (AUTO) 13.7 % (1.0-10.0); NEUTROPHILS % (AUTO) 60.8 % (45.0-75.0); PLATELET COUNT 342 K/UL (150-450); RED BLOOD COUNT 3.95 M/UL (4.20-5.40); RED CELL DISTRIBUTION WIDTH 11.6 % (11.6-14.8); WHITE BLOOD COUNT 5.5 K/UL (4.8-10.8)
[2020-03-09 06:51] LABS: ALANINE AMINOTRANSFERASE 26 U/L (12-78); ALBUMIN 2.7 G/DL (3.4-5.0); ALBUMIN/GLOBULIN RATIO 0.8 (1.0-2.7); ALKALINE PHOSPHATASE 99 U/L (46-116); ANION GAP 7 mmol/L (5-15); ASPARTATE AMINO TRANSFERASE 30 U/L (15-37); BILIRUBIN,TOTAL 0.2 MG/DL (0.2-1.0); BLOOD UREA NITROGEN 13 mg/dL (7-18); CALCIUM 8.5 MG/DL (8.5-10.1); CARBON DIOXIDE 29 MMOL/L (21-32); CHLORIDE 103 MMOL/L (98-107); CREATININE 0.5 MG/DL (0.55-1.30); POTASSIUM 3.7 MMOL/L (3.5-5.1); SODIUM 139 MMOL/L (136-145)
[2020-03-09] MEDS: PCA shift volume MISC SCH (07:00)
[2020-03-09] MEDS: Abreva 10% cream 2gm TP SCH ×5 (07:16→18:19)
--- NOTE | 2020-03-09 07:30 | NUR ---
NURSE NOTES: Patient is in bed awake and able to verbalize needs. Stable. Denies pain or SOB. Patient instructed to use call light for assistance, verbalized understanding. PICC patent and running TPN, IVF, and BAR WAITER/WAITRESS as ordered. All safety measures provided. Patient is in bed in locked and lowest position with call light within reach. All needs met at this time. Will continue to monitor.
--- NOTE | 2020-03-09 07:35 | NUR ---
NURSE HAND-OFF: Important Events on Shift:[NONE] Patient Status: [STABLE] Diet: [NPO] Pending Orders: [NONE] Pending Results/Labs:[NONE] Pending MD notification:[NONE] Latest Vital Signs: Temperature 98.6 , Pulse 98 , B/P 103 /61 , Respiratory Rate 17 , O2 SAT 96 , Room Air, O2 Flow Rate 3.0 . Vital Sign Comment: [WNL] Latest Bray Fall Score: 15 Fall Risk: Low Risk Safety Measures: Call light Within Reach, Bed Alarm Zone 1, Side Rails Side Rails x2, Bed position Low and Locked. Fall Precautions: Yellow Socks Door Sign Patient Fall Education Report given to [LG [email or web address]].
[2020-03-09 08:00] VITALS: BP 95/61
--- NOTE | 2020-03-09 08:13 | Urology Progress Note ---
Assessment/Plan Assessment/Plan: 1. Urinary frequency. 2. 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 3. Pyuria history. 4. Hematuria history. monitor clinically cont low dose ditropan for now, taking PRN cysto at some point electively Subjective Allergies: Coded Allergies: IODINATED CONTRAST MEDIA (Verified Allergy, Severe, Shortness of Breath, 02/24/20) IODINE (Verified Allergy, Severe, Shortness of Breath, 02/24/20) MORPHINE (Verified Allergy, Intermediate, Hives, 02/24/20) SULFASALAZINE (Verified Allergy, Intermediate, Hives, 02/24/20) MESALAMINE (Verified Adverse Reaction, Mild, headache , 02/24/20) Subjective all noted, remains NPO variable voiding sx's Objective Last 24 Hour Vital Signs Date Time Temp Pulse Resp B/P (MAP) Pulse Ox O2 Delivery O2 Flow Rate FiO2 03/09/20 04:00 98.6 98 17 103/61 (75) 96 03/09/20 04:00 98 17 96 03/09/20 00:00 97.6 101 17 100/59 (73) 97 03/09/20 00:00 101 18 97 03/08/20 21:00 Room Air 03/08/20 20:00 98.7 102 17 103/60 (74) 95 03/08/20 19:26 96 Room Air 21 03/08/20 16:00 97.7 96 18 96/58 (71) 97 03/08/20 16:00 18 03/08/20 12:00 98.2 105 18 111/66 (81) 96 03/08/20 12:00 18 03/08/20 09:00 Room Air Intake and Output 03/08/20 03/09/20 18:59 06:59 Intake Total 125 ml 570 ml Output Total 1725 ml 1400 ml Balance -1600 ml -830 ml IV Total 125 ml 570 ml Output Urine Total 1300 ml 800 ml Other 425 ml 600 ml # Voids 4 Microbiology Date/Time Source Procedure Growth Status 03/02/20 09:40 Urine,Clean Catch Urine Culture - Final Mixed Gram Positive Organism Complete 02/24/20 10:30 Nasopharynx SARS-CoV-2 RdRp Gene Assay - Final Complete Current Medications Medications (Trade) Dose Ordered Sig/Gus Route PRN Reason Start Time Stop Time Status Last Admin Dose Admin Acetaminophen (Tylenol) 650 mg Q4H PRN ORAL Mild Pain, temp over 100.2 02/25/20 10:15 03/26/20 10:14 Acyclovir (Zovirax) 400 mg EVERY 8 HOURS ORAL 03/01/20 15:00 03/31/20 14:59 03/09/20 06:03 Barium Sulfate (Readi-Cat 2) 450 ml NOW PRN ORAL Radiology Procedure 03/08/20 08:15 03/10/20 08:14 Chlorhexidine Gluconate (Rose-Hex 2%) 1 applic DAILY@2000 TOPIC 02/24/20 20:00 05/24/20 19:59 03/08/20 20:36 Dextrose 1,000 ml @ 0 mls/hr Q24H PRN IV PN interrupted or unavailable 03/03/20 12:45 04/02/20 12:44 Dextrose 1,000 ml @ 50 mls/hr Q20H IV 03/04/20 09:00 04/03/20 08:59 03/08/20 13:26 Dextrose (Dextrose 50%) 25 ml Q30M PRN IV Hypoglycemia 03/03/20 12:45 06/01/20 12:44 Dextrose (Dextrose 50%) 50 ml Q30M PRN IV Hypoglycemia 03/03/20 12:45 06/01/20 12:44 Diphenhydramine HCl (Benadryl) 50 mg Q4H PRN ORAL Itching 03/02/20 12:00 04/01/20 11:59 03/09/20 06:03 Docosanol (Abreva) 1 gm FIVE TIMES A DAY TP 03/01/20 16:00 05/30/20 15:59 03/09/20 07:16 Fat Emulsion Intravenous 216 ml/Amino Acids/ Electrolytes/ Dextrose 1,800 ml @ 75 mls/hr Q24H IV 03/03/20 20:00 06/01/20 19:59 03/08/20 20:39 Hydromorphone HCl 30 ml @ 0 mls/hr Q24H PRN IV For Pain 03/08/20 09:00 03/10/20 08:59 03/08/20 18:12 Hydromorphone HCl (Dilaudid) 1 mg Q4H PRN SUBQ Severe Breakthru Pain (>7) 03/06/20 13:46 03/13/20 13:45 Hydroxyzine HCl (Atarax) 50 mg Q6H PRN ORAL Itching 03/04/20 14:45 03/29/20 14:44 03/06/20 10:33 Hyoscyamine Sulfate (Levsin) 0.125 mg Q6H PRN ORAL cramping 03/02/20 17:30 04/01/20 17:29 03/08/20 20:36 Insulin Aspart (NovoLOG) Q6HR SUBQ 03/04/20 00:00 06/02/20 00:00 03/08/20 12:08 Iron Sucrose 200 mg/Sodium Chloride 120 ml @ 240 mls/hr BEDTIME IV 03/07/20 21:00 03/11/20 21:29 03/08/20 20:36 Miscellaneous Medication (MARKETING PROGRAMS SPECIALIST Rate Change) 1 ea DAILY PRN MISC rate change 03/08/20 09:00 03/12/20 08:59 Miscellaneous Medication (MARKETING PROGRAMS SPECIALIST shift volume) 1 ea Q12HR@0700,1900 MISC 03/08/20 19:00 03/12/20 09:30 03/09/20 07:00 Naloxone HCl (Narcan) 0.1 mg Q1M PRN IVP RR<10/min OR SBP<90 mmHg 03/08/20 09:00 03/12/20 08:59 Ondansetron HCl (Zofran) 4 mg Q4H PRN IVP Nausea & Vomiting 02/25/20 10:15 03/26/20 10:14 03/08/20 23:13 Oxybutynin Chloride (Ditropan) 2.5 mg Q8H PRN ORAL bladder spasms 03/05/20 09:15 04/04/20 09:14 Phytonadione (Vitamin K) 10 mg ONCE A WEEK SUBQ 03/04/20 09:00 06/02/20 08:59 03/04/20 09:33 Prochlorperazine (Compazine) 10 mg Q6H PRN IVP Nausea & Vomiting 02/25/20 10:30 03/26/20 10:29 03/09/20 06:03 Simethicone (Mylicon) 80 mg QID PRN ORAL Abdominal cramps, gas 02/29/20 09:30 05/29/20 09:29 02/29/20 10:00 Temazepam (RestoriL) 7.5 mg HSPRN PRN ORAL Insomnia 03/05/20 21:00 03/12/20 20:59 03/08/20 23:47 Laboratory Tests 03/08/20 12:00: POC Whole Blood Glucose 141H 03/08/20 18:08: POC Whole Blood Glucose 122H 03/09/20 05:26: POC Whole Blood Glucose 108H 03/09/20 05:50: White Blood Count 5.5, Red Blood Count 3.95L, Hemoglobin 10.8L, Hematocrit 32.7L , Mean Corpuscular Volume 83, Mean Corpuscular Hemoglobin 27.4, Mean Corpuscular Hemoglobin Concent 33.1, Red Cell Distribution Width 11.6, Platelet Count 342, Mean Platelet Volume 6.3L, Neutrophils (%) (Auto) 60.8, Lymphocytes (%) (Auto) 16.3L, Monocytes (%) (Auto) 13.7H, Eosinophils (%) (Auto) 7.3H, Basophils (%) (Auto) 1.8, Sodium Level 139, Potassium Level 3.7, Chloride Level 103, Carbon Dioxide Level 29, Anion Gap 7, Blood Urea Nitrogen 13, Creatinine 0.5L, Estimat Glomerular Filtration Rate > 60, Glucose Level 107H, Calcium Level 8.5, Total Bilirubin 0.2, Aspartate Amino Transf (AST/SGOT) 30, Alanine Aminotransferase (ALT/SGPT) 26, Alkaline Phosphatase 99, Total Protein 6.2L, Albumin 2.7L, Globulin 3.5, Albumin/Globulin Ratio 0.8L Height (Feet): 5 Height (Inches): 4.00 Weight (Pounds): 145 Objective exam stable Ja Marvin MD Mar 09, 2020 08:13
--- NOTE | 2020-03-09 08:27 | General Progress Note ---
Progress Note Progress Note AVSS Patient had good ileostomy output after CT with oral readi-CAT oral contrast and one dose of oral lactulose. Feels better Abdomen soft, non-distended, healing nicely Urine 2100 Ileostomy 1025 WBC 5500 Hgb 10.8 albumin 2.7 Imp: Ileus resolved Plan; Clear liquid diet continue TPN Solomon Marcial MD Mar 09, 2020 08:27
[2020-03-09] MEDS: Hyoscyamine 0.125mg tab ORAL PRN ×3 (08:32→23:05)
--- NOTE | 2020-03-09 10:30 | NUR ---
NURSE NOTES: IVF and CASER IN d/c as ordered. CASER IN syringe wasted with Gerardo pharmacist.
[2020-03-09] MEDS: HYDROcodone/Acetamin 5/325 tab ORAL PRN ×2 (10:39→15:07)
[2020-03-09 12:00] VITALS: BP 99/58
--- NOTE | 2020-03-09 14:10 | NUR ---
CASE MANAGEMENT:REVIEW 03/09/20 SI: MILD ABDOMINAL DISTENTION . 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 No contrast is noted reaching the ileostomy. Pocket of fluid in the left dependent hemipelvis, which may represent developing phlegmon/abscess; however, evaluation is limited in the absence of intravenous contrast. Interval slight improvement in pneumoperitoneum. : MED/SURG STATUS 3 EAST PLAN: CONTINUE NPO AND TPN CT ABD W/ CONTRAST ~SUGGEST W/ CONTRAST EXAM POSSIBLE ENDOSCOPY TO FOLLOW CONSULT UROLOGY
[2020-03-09 16:00] VITALS: BP 104/57
[2020-03-09] MEDS: HYDROmorphone 1mg/ml Carpuject SUBQ PRN (16:10)
[2020-03-09] MEDS: HYDROcodone/Acetamin 7.5/325 tab ORAL PRN ×2 (18:51→23:05)
--- NOTE | 2020-03-09 18:59 | NUR ---
NURSE NOTES: Ileo: 100cc brownish output. UO: 1575cc light reuben urine. Patient tolerated clear liquid diet well, did not have a big appetite during shift. PICC running TPN as ordered. Dressing reinforced.
--- NOTE | 2020-03-09 19:30 | NUR ---
NURSE NOTES: RECEIVED PATIENT FROM LG JARAMILLO. PATIENT IS AWAKE, CALM, RESTING IN BED, AAOX4, ON ROOM AIR, NO ACUTE DISTRESS NOTED. PATIENT DENIES SOB, DENIES PAIN AT THE MOMENT. SURGICAL DRESSINGS ON LOWER ABDOMEN DRY AND INTACT. PICC LINE NOTED ON LEFT UPPER ARM, PATENT, FLUSHING WELL, RUNNING TPN @75ML/HR. ILEO NOTED ON RIGHT LOWER QUADRANT. BED IS LOCKED AND LOW, BED ALARMS ACTIVE, SIDE RAILS UPX2 AND CALL LIGHT WITHIN REACH. WILL CONTINUE TO MONITOR.
--- NOTE | 2020-03-09 19:35 | NUR ---
NURSE HAND-OFF: Important Events on Shift:pain/nausea/itching management, TPN, I&O Patient Status: stable Diet: clear Pending Orders: n/a Pending Results/Labs:n/a Pending MD notification:n/a Latest Vital Signs: Temperature 98.7 , Pulse 109 , B/P 104 /57 , Respiratory Rate 20 , O2 SAT 96 , Room Air, O2 Flow Rate 3.0 . Vital Sign Comment: n/a Latest Bray Fall Score: 15 Fall Risk: Low Risk Safety Measures: Call light Within Reach, Side Rails x2, Bed position Low and Locked. Fall Precautions: Yellow Socks Door Sign Patient Fall Education Report given to Cleopatra RN..
[2020-03-09 20:00] VITALS: BP 94/55
[2020-03-09] MEDS: Dyna-Hex 2% Top Sol 2oz TOPIC SCH (20:30)
[2020-03-09] MEDS: Iron Sucrose 200 MG in NS 110 ML IV SCH (20:30)
[2020-03-09] MEDS: Fat Emulsion Iv 20% 216 ML in Tpn 1,584 ML IV SCH (20:31)
[2020-03-10] VITALS: BP 91/54
[2020-03-10] MEDS: HYDROmorphone 1mg/ml Carpuject SUBQ PRN ×4 (01:03→20:15)
[2020-03-10] MEDS: HYDROcodone/Acetamin 7.5/325 tab ORAL PRN ×3 (03:42→16:57)
[2020-03-10 04:00] VITALS: BP 90/50
[2020-03-10] MEDS: NovoLOG Insulin Flexpen SUBQ SCH ×4 (06:00→17:12)
[2020-03-10] MEDS: Abreva 10% cream 2gm TP SCH ×5 (06:01→18:33)
[2020-03-10] MEDS: Acyclovir 200mg Cap ORAL SCH ×3 (06:01→22:04)
[2020-03-10 07:02] LABS: BASOPHILS % (AUTO) 1.7 % (0.0-2.0); EOSINOPHILS % (AUTO) 7.6 % (0.0-3.0); HEMOGLOBIN 10.1 G/DL (12.0-16.0); LYMPHOCYTES % (AUTO) 23.1 % (20.0-45.0); MEAN CORPUSCULAR VOLUME 84 FL (80-99); MONOCYTES % (AUTO) 14.3 % (1.0-10.0); NEUTROPHILS % (AUTO) 53.4 % (45.0-75.0); PLATELET COUNT 373 K/UL (150-450); RED BLOOD COUNT 3.59 M/UL (4.20-5.40); RED CELL DISTRIBUTION WIDTH 11.8 % (11.6-14.8); WHITE BLOOD COUNT 6.1 K/UL (4.8-10.8)
--- NOTE | 2020-03-10 07:16 | NUR ---
NURSE HAND-OFF: Important Events on Shift: DRESSINGS INTACT, ILEO OUTPUT 50ML, URINE OUTPUT 500ML Patient Status: STABLE Diet: CLEAR LIQUID Pending Orders: N/A Pending Results/Labs: CBC, CMP, MAG, PHOS Pending MD notification: N/A Latest Vital Signs: Temperature 97.5 , Pulse 95 , B/P 90 /50 , Respiratory Rate 17 , O2 SAT 96 , Room Air, O2 Flow Rate 3.0 . Vital Sign Comment: STABLE Latest Bray Fall Score: 15 Fall Risk: Low Risk Safety Measures: Call light Within Reach, Bed Alarm Zone 1, Side Rails Side Rails x2, Bed position Low and Locked. Fall Precautions: Yellow Socks Door Sign Patient Fall Education Report given to LG EDMONDS.
--- NOTE | 2020-03-10 07:23 | NUR ---
NURSE NOTES: Report received from Cleopatra RN, rounds made. Patient resting in semi-fowlers position in bed, AOx4, calm. On clear liquids. Abdominal pain 2/10. TPN at 75 ml/hr via ASHKAN PICC, site/dressing CDI. RLQ Carlee Ileostomy appliance in place, dark green brown liquid output noted. Abdominal dressing CDI. Bilateral SCDs off, wears compression stockings, up to BSC frequently. Call light in reach, bed in lowest position, will continue to monitor.
[2020-03-10 07:33] LABS: ALBUMIN 2.5 G/DL (3.4-5.0); ALBUMIN/GLOBULIN RATIO 0.9 (1.0-2.7); ALKALINE PHOSPHATASE 82 U/L (46-116); ANION GAP 7 mmol/L (5-15); ASPARTATE AMINO TRANSFERASE 23 U/L (15-37); BILIRUBIN,TOTAL 0.2 MG/DL (0.2-1.0); CALCIUM 8.5 MG/DL (8.5-10.1); CARBON DIOXIDE 28 MMOL/L (21-32); CHLORIDE 107 MMOL/L (98-107); CREATININE 0.5 MG/DL (0.55-1.30); POTASSIUM 3.7 MMOL/L (3.5-5.1); SODIUM 141 MMOL/L (136-145)
[2020-03-10 08:00] VITALS: BP 95/55
--- NOTE | 2020-03-10 08:16 | Urology Progress Note ---
Assessment/Plan Assessment/Plan: 1. Urinary frequency. 2. 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 3. Pyuria history. 4. Hematuria history. monitor clinically cont low dose ditropan for now, taking PRN cysto at some point electively Subjective Allergies: Coded Allergies: IODINATED CONTRAST MEDIA (Verified Allergy, Severe, Shortness of Breath, 02/24/20) IODINE (Verified Allergy, Severe, Shortness of Breath, 02/24/20) MORPHINE (Verified Allergy, Intermediate, Hives, 02/24/20) SULFASALAZINE (Verified Allergy, Intermediate, Hives, 02/24/20) MESALAMINE (Verified Adverse Reaction, Mild, headache , 02/24/20) Subjective all noted, started on clears variable voiding sx's Objective Last 24 Hour Vital Signs Date Time Temp Pulse Resp B/P (MAP) Pulse Ox O2 Delivery O2 Flow Rate FiO2 03/10/20 04:00 97.5 95 17 90/50 (63) 96 03/10/20 00:00 98.3 113 18 91/54 (66) 97 03/09/20 21:00 Room Air 03/09/20 20:17 96 Room Air 21 03/09/20 20:00 98.2 101 17 94/55 (68) 98 03/09/20 16:00 98.7 109 20 104/57 (73) 96 03/09/20 12:00 98.4 101 21 99/58 (72) 98 03/09/20 09:25 97 Room Air 21 03/09/20 09:00 Room Air Intake and Output 03/09/20 03/10/20 19:00 07:00 Intake Total 360 ml 1518 ml Output Total 1675 ml 650 ml Balance -1315 ml 868 ml Intake Oral 360 ml 678 ml IV Total 840 ml Output Urine Total 1575 ml 600 ml Other 100 ml 50 ml Microbiology Date/Time Source Procedure Growth Status 03/02/20 09:40 Urine,Clean Catch Urine Culture - Final Mixed Gram Positive Organism Complete 02/24/20 10:30 Nasopharynx SARS-CoV-2 RdRp Gene Assay - Final Complete Current Medications Medications (Trade) Dose Ordered Sig/Gus Route PRN Reason Start Time Stop Time Status Last Admin Dose Admin Acetaminophen (Tylenol) 650 mg Q4H PRN ORAL Mild Pain, temp over 100.2 02/25/20 10:15 10/17/20 10:14 Acetaminophen/ Hydrocodone Bitart ([place] 7.5/325) 1 tab Q4H PRN ORAL Moderate Pain (Pain Scale 4-6) 03/09/20 18:45 03/16/20 18:44 03/10/20 03:42 Acyclovir (Zovirax) 400 mg EVERY 8 HOURS ORAL 03/01/20 15:00 03/31/20 14:59 03/10/20 06:01 Chlorhexidine Gluconate (Rose-Hex 2%) 1 applic DAILY@2000 TOPIC 02/24/20 20:00 05/24/20 19:59 03/09/20 20:30 Dextrose 1,000 ml @ 0 mls/hr Q24H PRN IV PN interrupted or unavailable 03/03/20 12:45 04/02/20 12:44 Dextrose (Dextrose 50%) 25 ml Q30M PRN IV Hypoglycemia 03/03/20 12:45 06/01/20 12:44 Dextrose (Dextrose 50%) 50 ml Q30M PRN IV Hypoglycemia 03/03/20 12:45 06/01/20 12:44 Diphenhydramine HCl (Benadryl) 50 mg Q4H PRN ORAL Itching 03/02/20 12:00 04/01/20 11:59 03/09/20 18:52 Docosanol (Abreva) 1 gm FIVE TIMES A DAY TP 03/01/20 16:00 05/30/20 15:59 03/10/20 06:01 Fat Emulsion Intravenous 216 ml/Amino Acids/ Electrolytes/ Dextrose 1,800 ml @ 75 mls/hr Q24H IV 03/03/20 20:00 06/01/20 19:59 03/09/20 20:31 Hydromorphone HCl (Dilaudid) 1 mg Q4H PRN SUBQ Severe Breakthru Pain (>7) 03/06/20 13:46 03/13/20 13:45 03/10/20 01:03 Hydroxyzine HCl (Atarax) 50 mg Q6H PRN ORAL Itching 03/04/20 14:45 03/29/20 14:44 03/06/20 10:33 Hyoscyamine Sulfate (Levsin) 0.125 mg Q6H PRN ORAL cramping 03/02/20 17:30 04/01/20 17:29 03/09/20 23:05 Insulin Aspart (NovoLOG) Q6HR SUBQ 03/04/20 00:00 06/02/20 00:00 03/08/20 12:08 Iron Sucrose 200 mg/Sodium Chloride 120 ml @ 240 mls/hr BEDTIME IV 03/07/20 21:00 03/11/20 21:29 03/09/20 20:30 Ondansetron HCl (Zofran) 4 mg Q4H PRN IVP Nausea & Vomiting 02/25/20 10:15 03/26/20 10:14 03/10/20 03:42 Oxybutynin Chloride (Ditropan) 2.5 mg Q8H PRN ORAL bladder spasms 03/05/20 09:15 04/04/20 09:14 Phytonadione (Vitamin K) 10 mg ONCE A WEEK SUBQ 03/04/20 09:00 06/02/20 08:59 03/04/20 09:33 Prochlorperazine (Compazine) 10 mg Q6H PRN IVP Nausea & Vomiting 02/25/20 10:30 03/26/20 10:29 03/09/20 13:25 Simethicone (Mylicon) 80 mg QID PRN ORAL Abdominal cramps, gas 02/29/20 09:30 05/29/20 09:29 02/29/20 10:00 Temazepam (RestoriL) 7.5 mg HSPRN PRN ORAL Insomnia 03/05/20 21:00 03/12/20 20:59 03/08/20 23:47 Laboratory Tests 03/09/20 11:53: POC Whole Blood Glucose [Pending] 03/09/20 18:19: POC Whole Blood Glucose [Pending] 03/10/20 00:06: POC Whole Blood Glucose 115H 03/10/20 04:07: White Blood Count 6.1, Red Blood Count 3.59L, Hemoglobin 10.1L, Hematocrit 30.0L , Mean Corpuscular Volume 84, Mean Corpuscular Hemoglobin 28.1, Mean Corpuscular Hemoglobin Concent 33.6, Red Cell Distribution Width 11.8, Platelet Count 373, Mean Platelet Volume 6.2L, Neutrophils (%) (Auto) 53.4, Lymphocytes (%) (Auto) 23.1, Monocytes (%) (Auto) 14.3H, Eosinophils (%) (Auto) 7.6H, Basophils (%) (Auto) 1.7, Sodium Level 141, Potassium Level 3.7, Chloride Level 107, Carbon Dioxide Level 28, Anion Gap 7, Blood Urea Nitrogen [Pending], Creatinine 0.5L, Estimat Glomerular Filtration Rate > 60, Glucose Level 104, Calcium Level 8.5, Phosphorus Level 5.0H, Magnesium Level 1.9, Total Bilirubin 0.2, Aspartate Amino Transf (AST/SGOT) 23, Alanine Aminotransferase (ALT/SGPT) [Pending], Alkaline Phosphatase 82, Total Protein 5.2L, Albumin 2.5L, Globulin 2.7, Albumin/Globulin Ratio 0.9L 03/10/20 06:03: POC Whole Blood Glucose 120H Height (Feet): 5 Height (Inches): 4.00 Weight (Pounds): 145 Objective exam stable Ja Marvin MD Mar 10, 2020 08:16
[2020-03-10 08:53] LABS: ALANINE AMINOTRANSFERASE 23 U/L (12-78); BLOOD UREA NITROGEN 12 mg/dL (7-18)
--- NOTE | 2020-03-10 09:17 | NUR ---
CASE MANAGEMENT: REVIEW SI: MALFUNCTIONING WILLIAM ILEOSTOMY . ILEUS RESOLVED REVISION OF CONTINENT ILEOSTOMY 02/24 T 97.5 HR 113 RR 18 BP 90/50 SAT 96% ROOM AIR H/H 10.1/30.0 CR 0.5 GLUCOSE 120 IS: VENOFER IV QHS DILAUDID SUBQ Q4HR PRN TPN IV Q24HR VITAMIN K SUBQ QWEEK NOVOLOG SUBQ Q6HR START BCIR PO DIET MED/SURG STATUS DCP: PATIENT IS FROM HOME
[2020-03-10] MEDS: HydrOXYzine 50mg tab ORAL PRN (10:13)
[2020-03-10 12:00] VITALS: BP 112/79
--- NOTE | 2020-03-10 13:48 | General Progress Note ---
Progress Note Progress Note AVSS Ongoing nausea without cramping pains. Not controlled by Zofran and Compazine prn Abdomen soft, non-distended, 1/3 quan removed Ileostomy stable Urine 2074 Ileostomy 150 - eating 5% of meals labs stable - albumin 2.5 Imp: persistent nausea Plan: Reglan 10mg IV q6h/ d/c compazine continue TPN Solomon Marcial MD Mar 10, 2020 13:48
[2020-03-10] MEDS: Metoclopramide 10mg/2ml Inj IVP SCH ×2 (15:05→20:15)
[2020-03-10 16:00] VITALS: BP 108/68
[2020-03-10] MEDS: Hyoscyamine 0.125mg tab ORAL PRN (16:56)
--- NOTE | 2020-03-10 19:05 | NUR ---
NURSE HAND-OFF: Important Events on Shift:BCIR diet started, poor appetite, half of abdominal quan removed, Reglan Q6 scheduled started Patient Status: stable Diet: BCIR Outputs: Urine: 1275 ml Carlee ileostomy: 100 ml Pending Orders: none Pending Results/Labs:none Pending MD notification:none Latest Vital Signs: Temperature 98.2 , Pulse 103 , B/P 108 /68 , Respiratory Rate 18 , O2 SAT 97 , Room Air, O2 Flow Rate 3.0 . Vital Sign Comment: none Latest Bray Fall Score: 15 Fall Risk: Low Risk Safety Measures: Call light Within Reach, Bed Alarm Zone 1, Side Rails Side Rails x2, Bed position Low and Locked. Fall Precautions: Yellow Socks Door Sign Patient Fall Education Report given to Robbin CASTANON.
--- NOTE | 2020-03-10 19:58 | NUR ---
NURSES NOTE: Pt in bed, A/OX4, states she has abdominal pain 12/17. Will medicate appropriately. No outward s/s of distress noted. Breathing pattern is even and unlabored on RA. RLQ ileo bag to be emptied end of shift. ASHKAN PICC line, no symptoms of infection noted. Dressing changed 03/09. All due medications will be administered. Bed at lowest level. Call light within reach.
[2020-03-10 20:00] VITALS: BP 108/68
[2020-03-10] MEDS: Dyna-Hex 2% Top Sol 2oz TOPIC SCH (20:15)
[2020-03-10] MEDS: Fat Emulsion Iv 20% 216 ML in Tpn 1,584 ML IV SCH (20:16)
[2020-03-10] MEDS: Iron Sucrose 200 MG in NS 110 ML IV SCH (22:04)
[2020-03-11] VITALS: BP 103/61
[2020-03-11] MEDS: HYDROcodone/Acetamin 7.5/325 tab ORAL PRN ×2 (00:14→04:53)
[2020-03-11] MEDS: Metoclopramide 10mg/2ml Inj IVP SCH ×4 (01:49→20:22)
[2020-03-11 04:00] VITALS: BP 101/64
[2020-03-11] MEDS: Acyclovir 200mg Cap ORAL SCH ×3 (05:09→21:13)
[2020-03-11] MEDS: NovoLOG Insulin Flexpen SUBQ SCH ×4 (05:11→17:12)
[2020-03-11 06:23] LABS: BASOPHILS % (AUTO) 2.1 % (0.0-2.0); EOSINOPHILS % (AUTO) 8.7 % (0.0-3.0); HEMATOCRIT 31.4 % (37.0-47.0); HEMOGLOBIN 10.5 G/DL (12.0-16.0); LYMPHOCYTES % (AUTO) 21.7 % (20.0-45.0); MEAN CORPUSCULAR VOLUME 84 FL (80-99); MONOCYTES % (AUTO) 9.6 % (1.0-10.0); NEUTROPHILS % (AUTO) 57.8 % (45.0-75.0); PLATELET COUNT 395 K/UL (150-450); RED BLOOD COUNT 3.75 M/UL (4.20-5.40); RED CELL DISTRIBUTION WIDTH 11.8 % (11.6-14.8); WHITE BLOOD COUNT 7.5 K/UL (4.8-10.8)
[2020-03-11] MEDS: Abreva 10% cream 2gm TP SCH ×5 (07:00→18:58)
[2020-03-11 07:04] LABS: ALANINE AMINOTRANSFERASE 21 U/L (12-78); ALBUMIN 2.7 G/DL (3.4-5.0); ALBUMIN/GLOBULIN RATIO 0.8 (1.0-2.7); ALKALINE PHOSPHATASE 91 U/L (46-116); ANION GAP 10 mmol/L (5-15); ASPARTATE AMINO TRANSFERASE 19 U/L (15-37); BILIRUBIN,TOTAL 0.1 MG/DL (0.2-1.0); BLOOD UREA NITROGEN 14 mg/dL (7-18); CALCIUM 8.5 MG/DL (8.5-10.1); CARBON DIOXIDE 26 MMOL/L (21-32); CHLORIDE 107 MMOL/L (98-107); CREATININE 0.5 MG/DL (0.55-1.30); PHOSPHORUS 3.7 MG/DL (2.5-4.9); POTASSIUM 3.8 MMOL/L (3.5-5.1); SODIUM 143 MMOL/L (136-145)
--- NOTE | 2020-03-11 07:23 | NUR ---
NURSE NOTES: Report received from Tash CASTANON, rounds made. Patient resting in semi-fowlers position in bed, AOx4, calm. On BCIR diet, poor appetite. Abdominal pain 3-4/10. TPN at 75 ml/hr via ASHKAN PICC, site/dressing CDI. RLQ Carlee Ileostomy appliance in place, dark brown liquid output noted. Abdominal dressing CDI. Bilateral SCDs off, wears compression stockings, up to BSC frequently. Call light in reach, bed in lowest position, will continue to monitor.
--- NOTE | 2020-03-11 07:42 | NUR ---
NURSE HAND-OFF: Important Events on Shift:[NONE] Patient Status: [STABLE] Diet: [BCIR LOW RESIDUE] Pending Orders: [NONE] Pending Results/Labs:[CBC BMP MAG PHOS] Pending MD notification:[NONE] Latest Vital Signs: Temperature 98.2 , Pulse 98 , B/P 101 /64 , Respiratory Rate 18 , O2 SAT 97 , Room Air, O2 Flow Rate 3.0 . Vital Sign Comment: [WNL] Latest Bray Fall Score: 15 Fall Risk: Low Risk Safety Measures: Call light Within Reach, Bed Alarm Zone 1, Side Rails Side Rails x2, Bed position Low and Locked. Fall Precautions: Yellow Socks Door Sign Patient Fall Education Report given to [LG EDMONDS].
[2020-03-11 08:00] VITALS: BP 102/59
[2020-03-11] MEDS: Phytonadione 10 mg/mL 1ml amp SUBQ SCH (08:23)
[2020-03-11] MEDS: HYDROmorphone 1mg/ml Carpuject SUBQ PRN (08:23)
--- NOTE | 2020-03-11 08:27 | Urology Progress Note ---
Assessment/Plan Assessment/Plan: 1. Urinary frequency. 2. 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 3. Pyuria history. 4. Hematuria history. monitor clinically cont low dose ditropan for now, taking PRN cysto at some point electively Subjective Allergies: Coded Allergies: IODINATED CONTRAST MEDIA (Verified Allergy, Severe, Shortness of Breath, 02/24/20) IODINE (Verified Allergy, Severe, Shortness of Breath, 02/24/20) MORPHINE (Verified Allergy, Intermediate, Hives, 02/24/20) SULFASALAZINE (Verified Allergy, Intermediate, Hives, 02/24/20) MESALAMINE (Verified Adverse Reaction, Mild, headache , 02/24/20) Subjective all noted, reg diet variable voiding sx's hasn't asked for ditropan lately Objective Last 24 Hour Vital Signs Date Time Temp Pulse Resp B/P (MAP) Pulse Ox O2 Delivery O2 Flow Rate FiO2 03/11/20 04:00 98.2 98 18 101/64 (76) 97 03/11/20 00:00 98.2 103 18 103/61 (75) 96 03/10/20 21:00 Room Air 03/10/20 20:00 97.9 106 18 108/68 (81) 98 03/10/20 16:00 98.2 103 18 108/68 (81) 97 03/10/20 12:00 98.3 85 18 112/79 (90) 97 03/10/20 09:00 Room Air Intake and Output 03/10/20 03/11/20 19:00 07:00 Intake Total 1372 ml 390 ml Output Total 1375 ml 800 ml Balance -3 ml -410 ml Intake Oral 472 ml 240 ml IV Total 900 ml 150 ml Output Urine Total 1275 ml 700 ml Other 100 ml 100 ml # Voids 6 2 Microbiology Date/Time Source Procedure Growth Status 03/02/20 09:40 Urine,Clean Catch Urine Culture - Final Mixed Gram Positive Organism Complete 02/24/20 10:30 Nasopharynx SARS-CoV-2 RdRp Gene Assay - Final Complete Current Medications Medications (Trade) Dose Ordered Sig/Gus Route PRN Reason Start Time Stop Time Status Last Admin Dose Admin Acetaminophen (Tylenol) 650 mg Q4H PRN ORAL Mild Pain, temp over 100.2 02/25/20 10:15 03/26/20 10:14 Acetaminophen/ Hydrocodone Bitart ([place] 7.5/325) 1 tab Q4H PRN ORAL Moderate Pain (Pain Scale 4-6) 03/09/20 18:45 03/16/20 18:44 03/11/20 04:53 Acyclovir (Zovirax) 400 mg EVERY 8 HOURS ORAL 03/01/20 15:00 03/31/20 14:59 03/11/20 05:09 Chlorhexidine Gluconate (Rose-Hex 2%) 1 applic DAILY@2000 TOPIC 02/24/20 20:00 05/24/20 19:59 03/10/20 20:15 Dextrose 1,000 ml @ 0 mls/hr Q24H PRN IV PN interrupted or unavailable 03/03/20 12:45 04/02/20 12:44 Dextrose (Dextrose 50%) 25 ml Q30M PRN IV Hypoglycemia 03/03/20 12:45 06/01/20 12:44 Dextrose (Dextrose 50%) 50 ml Q30M PRN IV Hypoglycemia 03/03/20 12:45 06/01/20 12:44 Diphenhydramine HCl (Benadryl) 50 mg Q4H PRN ORAL Itching 03/02/20 12:00 04/01/20 11:59 03/10/20 18:55 Docosanol (Abreva) 1 gm FIVE TIMES A DAY TP 03/01/20 16:00 05/30/20 15:59 03/11/20 07:00 Fat Emulsion Intravenous 216 ml/Amino Acids/ Electrolytes/ Dextrose 1,800 ml @ 75 mls/hr Q24H IV 03/03/20 20:00 06/01/20 19:59 03/10/20 20:16 Hydromorphone HCl (Dilaudid) 1 mg Q4H PRN SUBQ Severe Breakthru Pain (>7) 03/06/20 13:46 03/13/20 13:45 03/11/20 08:23 Hydroxyzine HCl (Atarax) 50 mg Q6H PRN ORAL Itching 03/04/20 14:45 03/29/20 14:44 03/10/20 10:13 Hyoscyamine Sulfate (Levsin) 0.125 mg Q6H PRN ORAL cramping 03/02/20 17:30 04/01/20 17:29 03/10/20 16:56 Insulin Aspart (NovoLOG) Q6HR SUBQ 03/04/20 00:00 06/02/20 00:00 03/08/20 12:08 Iron Sucrose 200 mg/Sodium Chloride 120 ml @ 240 mls/hr BEDTIME IV 03/07/20 21:00 03/11/20 21:29 03/10/20 22:04 Metoclopramide HCl (Reglan) 10 mg Q6H IVP 03/10/20 14:00 04/09/20 13:59 03/11/20 08:23 Ondansetron HCl (Zofran) 4 mg Q4H PRN IVP Nausea & Vomiting 02/25/20 10:15 03/26/20 10:14 03/10/20 13:30 Oxybutynin Chloride (Ditropan) 2.5 mg Q8H PRN ORAL bladder spasms 03/05/20 09:15 04/04/20 09:14 Phytonadione (Vitamin K) 10 mg ONCE A WEEK SUBQ 03/04/20 09:00 06/02/20 08:59 03/11/20 08:23 Simethicone (Mylicon) 80 mg QID PRN ORAL Abdominal cramps, gas 02/29/20 09:30 05/29/20 09:29 02/29/20 10:00 Temazepam (RestoriL) 7.5 mg HSPRN PRN ORAL Insomnia 03/05/20 21:00 03/12/20 20:59 03/11/20 01:49 Laboratory Tests 03/10/20 12:18: POC Whole Blood Glucose 117H 03/10/20 17:02: POC Whole Blood Glucose 103 03/11/20 00:13: POC Whole Blood Glucose 106 03/11/20 05:11: POC Whole Blood Glucose 97 03/11/20 05:30: White Blood Count 7.5, Red Blood Count 3.75L, Hemoglobin 10.5L, Hematocrit 31.4L , Mean Corpuscular Volume 84, Mean Corpuscular Hemoglobin 28.0, Mean Corpuscular Hemoglobin Concent 33.4, Red Cell Distribution Width 11.8, Platelet Count 395, Mean Platelet Volume 6.1L, Neutrophils (%) (Auto) 57.8, Lymphocytes (%) (Auto) 21.7, Monocytes (%) (Auto) 9.6, Eosinophils (%) (Auto) 8.7H, Basophils (%) (Auto) 2.1H, Sodium Level 143, Potassium Level 3.8, Chloride Level 107, Carbon Dioxide Level 26, Anion Gap 10, Blood Urea Nitrogen 14, Creatinine 0.5L, Estimat Glomerular Filtration Rate > 60, Glucose Level 124H, Calcium Level 8.5, Phosphorus Level 3.7, Magnesium Level 1.9, Total Bilirubin 0.1L, Aspartate Amino Transf (AST/SGOT) 19, Alanine Aminotransferase (ALT/SGPT) 21, Alkaline Phosphatase 91, Total Protein 6.1L, Albumin 2.7L, Globulin 3.4, Albumin/Globulin Ratio 0.8L Height (Feet): 5 Height (Inches): 4.00 Weight (Pounds): 145 Objective exam stable Ja Marvin MD Mar 11, 2020 08:27
--- NOTE | 2020-03-11 09:20 | General Progress Note ---
Progress Note Progress Note AVSS with heart rate 85-109. Only eating 5% of meals, only 700cc po. Nausea better with Reglan IV q6h Still c/o intermittent incisional/abdominal pain requiring SQ Dilaudid despite Bartlett 7.5/325 Abdomen soft, non-distended, quan removed and steristrips applied Ileostomy stable Urine 1975 Ileostomy 200cc labs all stable - albumin still low 2.7 Imp: Slowly progressing Plan: Continue TPN, BCIR diet d/c dilaudid and Bartlett Percocet and Toradol IV prn continue Reglan IV q6h Solomon Marcial MD Mar 11, 2020 09:20
--- NOTE | 2020-03-11 11:03 | NUR ---
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 CURRENT DIET:BCIR Low Residue diet PO DIET RECOMMENDATIONS: DIET PER MD PARENTERAL NUTRITION RECOMMENDATIONS: D/AA Rate: 66 IL Rate: 9 Total Rate: 75 Volume: 1800 % Dextrose: 17 % AA: 5.3 Energy (kcals/kg): 1684 Protein (g/kg protein): 84 Nonprotein KCALS: 1348 GIR (mg CHO/kg/min): 3.2 % Fat KCALS: 26 NPC: N Ratio: 100.2:1 TPN Comment: * D17% AA5.3% @ 66ml/hr + IL 20% @ 9ml/hr -> total of 75ml/hr, all 3:1 -> TPN @ goal will provide 100% est kcal/prot needs (29kcal/1.46g prot per kg) -> Monitor PO intake, ability to taper down ADDITIONAL RECOMMENDATIONS: 1) Obtain a standing weight as able 2) Monitor lytes, LFTs, BGs closely w/ TPN 3) Monitor PO intake, ability to taper down TPN -> discussed food options available to help improve acceptance
[2020-03-11] MEDS: Ketorolac 30mg Inj IV PRN (11:37)
[2020-03-11 12:00] VITALS: BP 96/72
[2020-03-11] MEDS: oxyCODONE HCL/Acetaminophen 5/325mg ORAL PRN ×3 (14:18→23:02)
--- NOTE | 2020-03-11 14:18 | NUR ---
CASE MANAGEMENT: REVIEW SI: MALFUNCTIONING WILLIAM ILEOSTOMY . ILEUS RESOLVED REVISION OF CONTINENT ILEOSTOMY 02/24 T 98.2 HR 106 RR 18 BP 92/62 SAT 99% ROOM AIR IS: VENOFER IV QHS DILAUDID SUBQ Q4HR PRN TPN IV DITROPAN ZOVIRAX BCIR PO DIET MED/SURG STATUS DCP: HOME
--- NOTE | 2020-03-11 14:24 | NUR ---
[employer] [facility]ICALS REVIEWED AND FAXED.
--- NOTE | 2020-03-11 14:55 | NUR ---
INSURANCE CLINICALS/REVIEW SENT TO [facility] [phone]
[2020-03-11 16:00] VITALS: BP 111/71
[2020-03-11] MEDS: Hyoscyamine 0.125mg tab ORAL PRN ×2 (16:20→23:01)
--- NOTE | 2020-03-11 17:00 | NUR ---
NURSE NOTES: Patient tolerating Percocet well, states, "took all the pain away". Up to BSC/BRP and sits in chair. Patient remains safe. Will continue to monitor.
--- NOTE | 2020-03-11 19:22 | NUR ---
NURSE HAND-OFF: Important Events on Shift:Remaining quan all removed, steri strips applied, started Percocet/Toradol Patient Status: stable Diet: BCIR (poor appetite) Outputs: Urine: 1625 ml Carlee: 85 ml Pending Orders: CathFlow PRN for PICC (lab draw) Pending Results/Labs:CBC CMP MG PHOS 03/12 Pending MD notification:none Latest Vital Signs: Temperature 98.4 , Pulse 102 , B/P 111 /71 , Respiratory Rate 18 , O2 SAT 97 , Room Air, O2 Flow Rate 3.0 . Vital Sign Comment: none Latest Bray Fall Score: 15 Fall Risk: Low Risk Safety Measures: Call light Within Reach, Bed Alarm Zone 1, Side Rails Side Rails x2, Bed position Low and Locked. Fall Precautions: Yellow Socks Door Sign Patient Fall Education Report given to Kwan CASTANON .
--- NOTE | 2020-03-11 19:30 | NUR ---
NURSE NOTES: received pt and report from LG Bal. pt alert and oriented x4 with no acute s/s of distress and no c/o pain. picc site noted clean dry and intact and running fluids as ordered. ileo noted and draining. surgical site noted clean dry and intact. plan of care discussed.
[2020-03-11 20:00] VITALS: BP 111/69
[2020-03-11] MEDS: Fat Emulsion Iv 20% 216 ML in Tpn 1,584 ML IV SCH (20:20)
[2020-03-11] MEDS: Dyna-Hex 2% Top Sol 2oz TOPIC SCH (20:21)
[2020-03-11] MEDS: Iron Sucrose 200 MG in NS 110 ML IV SCH (21:13)
--- NOTE | 2020-03-11 21:30 | NUR ---
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 If difficult to obtain, will execute PRN order for cath gary and draw from central line.
[2020-03-12] VITALS: BP 101/61
[2020-03-12] MEDS: Metoclopramide 10mg/2ml Inj IVP SCH ×4 (02:07→19:30)
[2020-03-12 04:00] VITALS: BP 95/62
[2020-03-12] MEDS: Ketorolac 30mg Inj IV PRN (04:37)
[2020-03-12] MEDS: Acyclovir 200mg Cap ORAL SCH ×3 (05:41→22:13)
[2020-03-12] MEDS: oxyCODONE HCL/Acetaminophen 5/325mg ORAL PRN ×5 (05:41→20:59)
[2020-03-12 05:59] LABS: BASOPHILS % (AUTO) 1.3 % (0.0-2.0); EOSINOPHILS % (AUTO) 3.1 % (0.0-3.0); HEMATOCRIT 33.4 % (37.0-47.0); HEMOGLOBIN 11.3 G/DL (12.0-16.0); LYMPHOCYTES % (AUTO) 20.7 % (20.0-45.0); MEAN CORPUSCULAR VOLUME 84 FL (80-99); MONOCYTES % (AUTO) 8.9 % (1.0-10.0); PLATELET COUNT 425 K/UL (150-450); RED CELL DISTRIBUTION WIDTH 12.2 % (11.6-14.8); WHITE BLOOD COUNT 8.6 K/UL (4.8-10.8)
[2020-03-12] MEDS: NovoLOG Insulin Flexpen SUBQ SCH ×4 (06:00→18:00)
[2020-03-12 06:52] LABS: ALANINE AMINOTRANSFERASE 23 U/L (12-78); ALBUMIN/GLOBULIN RATIO 0.8 (1.0-2.7); ALKALINE PHOSPHATASE 108 U/L (46-116); ANION GAP 7 mmol/L (5-15); ASPARTATE AMINO TRANSFERASE 26 U/L (15-37); BILIRUBIN,TOTAL 0.2 MG/DL (0.2-1.0); BLOOD UREA NITROGEN 13 mg/dL (7-18); CALCIUM 8.6 MG/DL (8.5-10.1); CARBON DIOXIDE 27 MMOL/L (21-32); CHLORIDE 108 MMOL/L (98-107); CREATININE 0.6 MG/DL (0.55-1.30); PHOSPHORUS 3.3 MG/DL (2.5-4.9); POTASSIUM 4.1 MMOL/L (3.5-5.1); SODIUM 142 MMOL/L (136-145)
[2020-03-12] MEDS: Abreva 10% cream 2gm TP SCH ×5 (07:00→18:04)
--- NOTE | 2020-03-12 07:30 | NUR ---
NURSE HAND-OFF: Important Events on Shift:pain management and nausea control Patient Status: stable Diet: BCIR Pending Orders: NA Pending Results/Labs:NA Pending MD notification:NA Latest Vital Signs: Temperature 98.5 , Pulse 106 , B/P 95 /62 , Respiratory Rate 18 , O2 SAT 96 , Room Air, O2 Flow Rate 3.0 . Vital Sign Comment: stable throughout shift Latest Bray Fall Score: 15 Fall Risk: Low Risk Safety Measures: Call light Within Reach, Bed Alarm Zone 1, Side Rails Side Rails x2, Bed position Low and Locked. Fall Precautions: Yellow Socks Door Sign Patient Fall Education Report given to LG Ferguson.
--- NOTE | 2020-03-12 07:45 | NUR ---
NURSE NOTES: received report from LG Bowens. Pt awake in bed on RA, alert and oriented x4, able to make needs known. no acute s/s of distress and no c/o pain at this time. PICC intact and patent running TPN and IVF as ordered. [place] ileo noted patent. surgical site noted clean dry and intact. Bed in low position and locked. Call light within reach. Will continue to monitor.
[2020-03-12 08:00] VITALS: BP 98/66
--- NOTE | 2020-03-12 09:22 | Urology Progress Note ---
Assessment/Plan Assessment/Plan: 1. Urinary frequency. 2. 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 3. Pyuria history. 4. Hematuria history. monitor clinically cont low dose ditropan for now, taking PRN cysto at some point electively Subjective Allergies: Coded Allergies: IODINATED CONTRAST MEDIA (Verified Allergy, Severe, Shortness of Breath, 02/24/20) IODINE (Verified Allergy, Severe, Shortness of Breath, 02/24/20) MORPHINE (Verified Allergy, Intermediate, Hives, 02/24/20) SULFASALAZINE (Verified Allergy, Intermediate, Hives, 02/24/20) MESALAMINE (Verified Adverse Reaction, Mild, headache , 02/24/20) Subjective all noted, antonette reg diet variable voiding sx's hasn't asked for ditropan lately Objective Last 24 Hour Vital Signs Date Time Temp Pulse Resp B/P (MAP) Pulse Ox O2 Delivery O2 Flow Rate FiO2 03/12/20 09:00 Room Air 03/12/20 08:00 98.7 100 18 98/66 (77) 97 03/12/20 04:00 98.5 106 18 95/62 (73) 96 03/12/20 00:00 98.6 97 18 101/61 (74) 96 03/11/20 21:00 Room Air 03/11/20 20:00 98.3 89 16 111/69 (83) 97 03/11/20 16:00 98.4 102 18 111/71 (84) 97 03/11/20 12:00 98.4 106 18 96/72 (80) 98 Intake and Output 03/11/20 03/12/20 19:00 07:00 Intake Total 1376 ml 1280 ml Output Total 1710 ml 550 ml Balance -334 ml 730 ml Intake Oral 476 ml 530 ml IV Total 900 ml 750 ml Output Urine Total 1625 ml 500 ml Other 85 ml 50 ml # Voids 9 3 Microbiology Date/Time Source Procedure Growth Status 03/02/20 09:40 Urine,Clean Catch Urine Culture - Final Mixed Gram Positive Organism Complete 02/24/20 10:30 Nasopharynx SARS-CoV-2 RdRp Gene Assay - Final Complete Current Medications Medications (Trade) Dose Ordered Sig/Gus Route PRN Reason Start Time Stop Time Status Last Admin Dose Admin Acetaminophen (Tylenol) 650 mg Q4H PRN ORAL Mild Pain, temp over 100.2 02/25/20 10:15 03/26/20 10:14 Acyclovir (Zovirax) 400 mg EVERY 8 HOURS ORAL 03/11/20 14:00 03/12/20 23:00 03/12/20 05:41 Chlorhexidine Gluconate (Rose-Hex 2%) 1 applic DAILY@2000 TOPIC 02/24/20 20:00 05/24/20 19:59 03/11/20 20:21 Dextrose 1,000 ml @ 0 mls/hr Q24H PRN IV PN interrupted or unavailable 03/03/20 12:45 04/02/20 12:44 Dextrose (Dextrose 50%) 25 ml Q30M PRN IV Hypoglycemia 03/03/20 12:45 06/01/20 12:44 Dextrose (Dextrose 50%) 50 ml Q30M PRN IV Hypoglycemia 03/03/20 12:45 06/01/20 12:44 Diphenhydramine HCl (Benadryl) 50 mg Q4H PRN ORAL Itching 03/02/20 12:00 04/01/20 11:59 03/10/20 18:55 Docosanol (Abreva) 1 gm FIVE TIMES A DAY TP 03/01/20 16:00 03/12/20 21:00 03/12/20 07:00 Fat Emulsion Intravenous 216 ml/Amino Acids/ Electrolytes/ Dextrose 1,800 ml @ 75 mls/hr Q24H IV 03/03/20 20:00 06/01/20 19:59 03/11/20 20:20 Hydroxyzine HCl (Atarax) 50 mg Q6H PRN ORAL Itching 03/04/20 14:45 03/29/20 14:44 03/10/20 10:13 Hyoscyamine Sulfate (Levsin) 0.125 mg Q6H PRN ORAL cramping 03/02/20 17:30 04/01/20 17:29 03/11/20 23:01 Insulin Aspart (NovoLOG) Q6HR SUBQ 03/04/20 00:00 06/02/20 00:00 03/08/20 12:08 Ketorolac Tromethamine (Toradol 30mg) 30 mg Q6H PRN IV Severe [place] Pain (>7) 03/11/20 09:00 03/16/20 08:59 03/12/20 04:37 Metoclopramide HCl (Reglan) 10 mg Q6H IVP 03/10/20 14:00 04/09/20 13:59 03/12/20 08:18 Ondansetron HCl (Zofran) 4 mg Q4H PRN IVP Nausea & Vomiting 02/25/20 10:15 03/26/20 10:14 03/12/20 04:36 Oxybutynin Chloride (Ditropan) 2.5 mg Q8H PRN ORAL bladder spasms 03/05/20 09:15 04/04/20 09:14 Oxycodone/ Acetaminophen (Percocet 5-325) 1 tab Q4H PRN ORAL Moderate Pain (Pain Scale 4-6) 03/11/20 09:15 03/18/20 09:14 03/12/20 09:19 Phytonadione (Vitamin K) 10 mg ONCE A WEEK SUBQ 03/04/20 09:00 06/02/20 08:59 03/11/20 08:23 Simethicone (Mylicon) 80 mg QID PRN ORAL Abdominal cramps, gas 02/29/20 09:30 05/29/20 09:29 02/29/20 10:00 Temazepam (RestoriL) 7.5 mg HSPRN PRN ORAL Insomnia 03/05/20 21:00 03/12/20 20:59 03/11/20 23:51 Laboratory Tests 03/11/20 11:43: POC Whole Blood Glucose 127H 03/11/20 17:10: POC Whole Blood Glucose 126H 03/11/20 23:53: POC Whole Blood Glucose 121H 03/12/20 05:20: White Blood Count 8.6, Red Blood Count 4.00L, Hemoglobin 11.3L, Hematocrit 33.4L , Mean Corpuscular Volume 84, Mean Corpuscular Hemoglobin 28.2, Mean Corpuscular Hemoglobin Concent 33.7, Red Cell Distribution Width 12.2, Platelet Count 425, Mean Platelet Volume 6.0L, Neutrophils (%) (Auto) 66.0, Lymphocytes (%) (Auto) 20.7, Monocytes (%) (Auto) 8.9, Eosinophils (%) (Auto) 3.1H, Basophils (%) (Auto) 1.3, Sodium Level 142, Potassium Level 4.1, Chloride Level 108H, Carbon Dioxide Level 27, Anion Gap 7, Blood Urea Nitrogen 13, Creatinine 0.6, Estimat Glomerular Filtration Rate > 60, Glucose Level 116H, Calcium Level 8.6, Phosphorus Level 3.3, Magnesium Level 2.0, Total Bilirubin 0.2, Aspartate Amino Transf (AST/SGOT) 26, Alanine Aminotransferase (ALT/SGPT) 23, Alkaline Phosphatase 108, Total Protein 6.6, Albumin 3.0L, Globulin 3.6, Albumin/Globulin Ratio 0.8L 03/12/20 05:36: POC Whole Blood Glucose 118H Height (Feet): 5 Height (Inches): 4.00 Weight (Pounds): 145 Objective exam stable Ja Marvin MD Mar 12, 2020 09:22
--- NOTE | 2020-03-12 09:41 | General Progress Note ---
Progress Note Progress Note AVSS Still getting Reglan IV q6h and needing occasional Zofran. Some gas cramping. Ate 25% of dinner. Pain relieved by Percocet Abdomen soft, flat, well healed Urine 2124 Ileostomy only 135cc/24 hours - 100cc already this am since 0600 WBC 8600 Hgb 11.3 albumin 3.0 Imp: Slowly improving Plan: Taper and d/c TPN tonight continue Reglan IV q6h another 24 hours Hopefully can tolerate diet better and start discharge planning Solomon Marcial MD Mar 12, 2020 09:41
[2020-03-12 12:00] VITALS: BP 99/70
[2020-03-12] MEDS: Hyoscyamine 0.125mg tab ORAL PRN ×2 (13:04→19:30)
[2020-03-12 16:00] VITALS: BP 116/80
--- NOTE | 2020-03-12 19:17 | NUR ---
NURSE HAND-OFF: Important Events on Shift:[DC TPN] Patient Status: [stable] Diet: [BCIR] Pending Orders: [] Pending Results/Labs:[] Pending MD notification:[] Latest Vital Signs: Temperature 98.1 , Pulse 98 , B/P 116 /80 , Respiratory Rate 18 , O2 SAT 98 , Room Air, O2 Flow Rate 3.0 . Vital Sign Comment: [stable] Latest Bray Fall Score: 15 Fall Risk: Low Risk Safety Measures: Call light Within Reach, Bed Alarm Zone 1, Side Rails Side Rails x2, Bed position Low and Locked. Fall Precautions: Yellow Socks Door Sign Patient Fall Education Report given to [Martínu,RN].
--- NOTE | 2020-03-12 19:20 | NUR ---
NURSE NOTES: Received report from LG Ferguson. Patient in stable condition.
[2020-03-12] MEDS: Dyna-Hex 2% Top Sol 2oz TOPIC SCH (19:30)
[2020-03-12 20:00] VITALS: BP 109/68
[2020-03-12] MEDS: Fat Emulsion Iv 20% 216 ML in Tpn 1,584 ML IV SCH (20:00)
--- NOTE | 2020-03-12 22:02 | NUR ---
NURSE NOTES: Patient is alert, awake, and oriented x4. Breathing unlabored on room air without distress. Verbalized mild to moderate cramping pain. Pain is well managed by prescribed pharmacological pain management per patient. Left upper arm PICC line noted intact and patent. TPN discontinues per MD order after titrating to 30mls x 2 hours. [place]ar Ileo noted patent. Surgical site dry and clean. Bed placed at the lowest with HOB elevated. Bed brake and siderails on for patient safety. Call light placed within reach. Encouraged to use. Will continue to monitor.
[2020-03-13] MEDS: oxyCODONE HCL/Acetaminophen 5/325mg ORAL PRN ×3 (01:26→09:45)
[2020-03-13] MEDS: Metoclopramide 10mg/2ml Inj IVP SCH ×2 (01:31→09:45)
[2020-03-13 04:00] VITALS: BP 98/62
[2020-03-13 05:51] LABS: BASOPHILS % (AUTO) 1.3 % (0.0-2.0); EOSINOPHILS % (AUTO) 2.7 % (0.0-3.0); HEMATOCRIT 31.7 % (37.0-47.0); HEMOGLOBIN 10.6 G/DL (12.0-16.0); LYMPHOCYTES % (AUTO) 20.4 % (20.0-45.0); MEAN CORPUSCULAR VOLUME 84 FL (80-99); MONOCYTES % (AUTO) 7.9 % (1.0-10.0); NEUTROPHILS % (AUTO) 67.6 % (45.0-75.0); PLATELET COUNT 473 K/UL (150-450); RED BLOOD COUNT 3.77 M/UL (4.20-5.40); RED CELL DISTRIBUTION WIDTH 13.5 % (11.6-14.8); WHITE BLOOD COUNT 9.5 K/UL (4.8-10.8)
[2020-03-13 06:11] LABS: ANION GAP 6 mmol/L (5-15); BLOOD UREA NITROGEN 16 mg/dL (7-18); CALCIUM 8.7 MG/DL (8.5-10.1); CARBON DIOXIDE 26 MMOL/L (21-32); CHLORIDE 108 MMOL/L (98-107); CREATININE 0.6 MG/DL (0.55-1.30); SODIUM 140 MMOL/L (136-145)
--- NOTE | 2020-03-13 07:41 | NUR ---
NURSE HAND-OFF: Important Events on Shift: No adverse event. Patient stable. Patient Status:Stable Diet:BCIR Low Residual Diet Pending Orders:None Pending Results/Labs:None Pending MD notification:None Latest Vital Signs: Temperature 97.8 , Pulse 101 , B/P 98 /62 , Respiratory Rate 19 , O2 SAT 96 , Room Air, O2 Flow Rate 3.0 . Vital Sign Comment: Stable Latest Bray Fall Score: 15 Fall Risk: Low Risk Safety Measures: Call light Within Reach, Bed Alarm Zone 1, Side Rails Side Rails x2, Bed position Low and Locked. Fall Precautions: Yellow Socks Door Sign Patient Fall Education Report given to LG Ferguson.
--- NOTE | 2020-03-13 07:43 | NUR ---
NURSE NOTES: received report from Minsu, RN. Pt asleep in bed on RA. no acute s/s of distress. PICC intact and patent. [place] ileo noted patent. surgical site noted clean dry and intact. Bed in low position and locked. Call light within reach. Will continue to monitor.
--- NOTE | 2020-03-13 10:05 | General Progress Note ---
Progress Note Progress Note AVSS Tachycardia improved and she feels better. Eating 25% of meals + Ensure enlive x 2 Abdomen soft Urine 1150 Ileostomy 275 labs all stable Imp: Improving Plan: Change Percocet to [place] Change Reglan to prn instead of g6h IV discharge planning for 03/15 f/u labs Solomon Marcial MD Mar 13, 2020 10:05
--- NOTE | 2020-03-13 10:10 | Urology Progress Note ---
Assessment/Plan Assessment/Plan: 1. Urinary frequency. 2. 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 3. Pyuria history. 4. Hematuria history. monitor clinically cont low dose ditropan for now, taking PRN also Levsin may help, PRN cysto at some point electively Subjective Allergies: Coded Allergies: IODINATED CONTRAST MEDIA (Verified Allergy, Severe, Shortness of Breath, 02/24/20) IODINE (Verified Allergy, Severe, Shortness of Breath, 02/24/20) MORPHINE (Verified Allergy, Intermediate, Hives, 02/24/20) SULFASALAZINE (Verified Allergy, Intermediate, Hives, 02/24/20) MESALAMINE (Verified Adverse Reaction, Mild, headache , 02/24/20) Subjective all noted, antonette reg diet variable voiding sx's hasn't asked for ditropan lately Objective Last 24 Hour Vital Signs Date Time Temp Pulse Resp B/P (MAP) Pulse Ox O2 Delivery O2 Flow Rate FiO2 03/13/20 09:00 Room Air 03/13/20 04:00 97.8 101 19 98/62 (74) 96 03/12/20 21:00 Room Air 03/12/20 20:00 97.6 94 20 109/68 (82) 98 03/12/20 19:50 98 Room Air 21 03/12/20 17:27 98.1 03/12/20 16:00 98.1 98 18 116/80 (92) 98 03/12/20 13:34 97.8 03/12/20 12:00 97.8 100 18 99/70 (80) 97 Intake and Output 03/12/20 03/13/20 19:00 07:00 Intake Total 830 ml 310 ml Output Total 850 ml 575 ml Balance -20 ml -265 ml Intake Oral 800 ml 280 ml IV Total 30 ml 30 ml Output Urine Total 700 ml 450 ml Other 150 ml 125 ml Microbiology Date/Time Source Procedure Growth Status 03/02/20 09:40 Urine,Clean Catch Urine Culture - Final Mixed Gram Positive Organism Complete 02/24/20 10:30 Nasopharynx SARS-CoV-2 RdRp Gene Assay - Final Complete Current Medications Medications (Trade) Dose Ordered Sig/Gus Route PRN Reason Start Time Stop Time Status Last Admin Dose Admin Acetaminophen (Tylenol) 650 mg Q4H PRN ORAL Mild Pain, temp over 100.2 02/25/20 10:15 03/26/20 10:14 Acetaminophen/ Hydrocodone Bitart ([place] 5/325) 1 tab Q4H PRN ORAL Moderate Pain (Pain Scale 4-6) 03/13/20 10:15 03/20/20 10:14 UNV Chlorhexidine Gluconate (Rose-Hex 2%) 1 applic DAILY@2000 TOPIC 02/24/20 20:00 05/24/20 19:59 03/12/20 19:30 Dextrose (Dextrose 50%) 25 ml Q30M PRN IV Hypoglycemia 03/03/20 12:45 06/01/20 12:44 Dextrose (Dextrose 50%) 50 ml Q30M PRN IV Hypoglycemia 03/03/20 12:45 06/01/20 12:44 Diphenhydramine HCl (Benadryl) 50 mg Q4H PRN ORAL Itching 03/02/20 12:00 04/01/20 11:59 03/10/20 18:55 Hydroxyzine HCl (Atarax) 50 mg Q6H PRN ORAL Itching 03/04/20 14:45 03/29/20 14:44 03/10/20 10:13 Hyoscyamine Sulfate (Levsin) 0.125 mg Q6H PRN ORAL cramping 03/02/20 17:30 04/01/20 17:29 03/12/20 19:30 Metoclopramide HCl (Reglan) 10 mg Q6H PRN IVP Nausea & Vomiting 03/13/20 16:00 04/09/20 13:59 UNV Ondansetron HCl (Zofran) 4 mg Q4H PRN IVP Nausea & Vomiting 02/25/20 10:15 03/26/20 10:14 03/12/20 04:36 Oxybutynin Chloride (Ditropan) 2.5 mg Q8H PRN ORAL bladder spasms 03/05/20 09:15 04/04/20 09:14 Simethicone (Mylicon) 80 mg QID PRN ORAL Abdominal cramps, gas 02/29/20 09:30 05/29/20 09:29 02/29/20 10:00 Temazepam (RestoriL) 7.5 mg HSPRN PRN ORAL Insomnia 03/12/20 20:00 03/19/20 19:59 03/12/20 22:13 Laboratory Tests 03/12/20 12:11: POC Whole Blood Glucose [Pending] 03/13/20 04:30: White Blood Count 9.5, Red Blood Count 3.77L, Hemoglobin 10.6L, Hematocrit 31.7L , Mean Corpuscular Volume 84, Mean Corpuscular Hemoglobin 28.1, Mean Corpuscular Hemoglobin Concent 33.3, Red Cell Distribution Width 13.5, Platelet Count 473H, Mean Platelet Volume 5.8L, Neutrophils (%) (Auto) 67.6, Lymphocytes (%) (Auto) 20.4, Monocytes (%) (Auto) 7.9, Eosinophils (%) (Auto) 2.7, Basophils (%) (Auto) 1.3, Sodium Level 140, Potassium Level 4.0, Chloride Level 108H, Carbon Dioxide Level 26, Anion Gap 6, Blood Urea Nitrogen 16, Creatinine 0.6, Estimat Gl omerular Filtration Rate > 60, Glucose Level 79, Calcium Level 8.7 Height (Feet): 5 Height (Inches): 4.00 Weight (Pounds): 145 Objective exam stable Ja Marvin MD Mar 13, 2020 10:10
[2020-03-13 12:00] VITALS: BP 101/71
[2020-03-13] MEDS: HYDROcodone/Acetamin 5/325 tab ORAL PRN ×3 (14:03→21:57)
--- NOTE | 2020-03-13 15:00 | NUR ---
NURSE NOTES: [place] given for pain at 1400. Upon pain re assessment pt stated that [place] did not give her nausea and felt better than Percocet.
[2020-03-13] MEDS ORDERED: NS 500ML ONE (15:48)
[2020-03-13 16:00] VITALS: BP 111/74
[2020-03-13] MEDS ORDERED: Metoclopramide 10mg/2ml Inj IVP PRN (16:00)
--- NOTE | 2020-03-13 19:23 | NUR ---
NURSE HAND-OFF: Important Events on Shift:[Change pain med with [place], Nausea got better] Patient Status: [stable] Diet: [BCIR] Pending Orders: [] Pending Results/Labs:[] Pending MD notification:[] Latest Vital Signs: Temperature 98.2 , Pulse 98 , B/P 111 /74 , Respiratory Rate 16 , O2 SAT 98 , Room Air, O2 Flow Rate 3.0 . Vital Sign Comment: [stable] Latest Bray Fall Score: 15 Fall Risk: Low Risk Safety Measures: Call light Within Reach, Bed Alarm Zone 1, Side Rails Side Rails x2, Bed position Low and Locked. Fall Precautions: Yellow Socks Door Sign Patient Fall Education Report given to [LG Olea].
--- NOTE | 2020-03-13 19:44 | NUR ---
NURSE NOTES: Received patient awake in bed, no s/s of acute distress, no c/o pain at this time. PICC noted on left upper arm, dressing dry and intact, patent. [place] ileostomy or right lower quadrant, asymptomatic. Bed low and locked. Needs attended to at this time.
[2020-03-13] MEDS: Dyna-Hex 2% Top Sol 2oz TOPIC SCH (19:52)
[2020-03-13 20:00] VITALS: BP 101/62
[2020-03-14] MEDS: HYDROcodone/Acetamin 5/325 tab ORAL PRN ×5 (03:18→21:05)
[2020-03-14 04:00] VITALS: BP 107/67
[2020-03-14 05:41] LABS: BASOPHILS % (AUTO) 1.2 % (0.0-2.0); HEMOGLOBIN 11.5 G/DL (12.0-16.0); LYMPHOCYTES % (AUTO) 27.1 % (20.0-45.0); MEAN CORPUSCULAR VOLUME 85 FL (80-99); MONOCYTES % (AUTO) 7.1 % (1.0-10.0); NEUTROPHILS % (AUTO) 60.7 % (45.0-75.0); PLATELET COUNT 514 K/UL (150-450); RED BLOOD COUNT 4.12 M/UL (4.20-5.40); RED CELL DISTRIBUTION WIDTH 13.9 % (11.6-14.8); WHITE BLOOD COUNT 9.4 K/UL (4.8-10.8)
[2020-03-14 05:45] LABS: ANION GAP 8 mmol/L (5-15); BLOOD UREA NITROGEN 19 mg/dL (7-18); CALCIUM 8.9 MG/DL (8.5-10.1); CARBON DIOXIDE 25 MMOL/L (21-32); CHLORIDE 108 MMOL/L (98-107); CREATININE 0.6 MG/DL (0.55-1.30); POTASSIUM 3.9 MMOL/L (3.5-5.1); SODIUM 141 MMOL/L (136-145)
--- NOTE | 2020-03-14 05:58 | NUR ---
NURSE HAND-OFF: Important Events on Shift: ileo output overnight has mulch-like consistency Patient Status: stable Diet: BCIR low residue Pending Orders: Pending Results/Labs: CBC BMP Pending MD notification: Latest Vital Signs: Temperature 97.3 , Pulse 80 , B/P 107 /67 , Respiratory Rate 16 , O2 SAT 98 , Room Air, O2 Flow Rate 3.0 . Vital Sign Comment: Latest Bray Fall Score: 15 Fall Risk: Low Risk Safety Measures: Call light Within Reach, Bed Alarm Zone 1, Side Rails Side Rails x2, Bed position Low and Locked. Fall Precautions: Yellow Socks Door Sign Patient Fall Education Addendum: 03/14/20 at 0716 by Jennie Blake RN Report given to LG Preciado
--- NOTE | 2020-03-14 07:30 | NUR ---
NURSE NOTES: Patient is in bed awake and able to verbalize needs. Stable. C/o pain in abdominal area, will administer pain medication as ordered. Breathing is even and unlabored. Ileo bag intact. BSC within reach. All safety measures provided. Patient is in bed in locked and lowest position with call light within reach. All needs met at this time. Will continue to monitor.
--- NOTE | 2020-03-14 07:41 | Urology Progress Note ---
Assessment/Plan Assessment/Plan: 1. Urinary frequency. 2. 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 3. Pyuria history. 4. Hematuria history. monitor clinically cont low dose ditropan for now, taking PRN also Levsin may help, PRN cysto at some point electively Subjective Allergies: Coded Allergies: IODINATED CONTRAST MEDIA (Verified Allergy, Severe, Shortness of Breath, 02/24/20) IODINE (Verified Allergy, Severe, Shortness of Breath, 02/24/20) MORPHINE (Verified Allergy, Intermediate, Hives, 02/24/20) SULFASALAZINE (Verified Allergy, Intermediate, Hives, 02/24/20) MESALAMINE (Verified Adverse Reaction, Mild, headache , 02/24/20) Subjective all noted, antonette reg diet variable voiding sx's hasn't asked for ditropan lately Objective Last 24 Hour Vital Signs Date Time Temp Pulse Resp B/P (MAP) Pulse Ox O2 Delivery O2 Flow Rate FiO2 03/14/20 04:00 97.3 80 16 107/67 (80) 98 03/14/20 03:48 98.2 03/13/20 22:27 98.2 03/13/20 21:19 Room Air 03/13/20 20:00 97.9 72 16 101/62 (75) 98 03/13/20 18:37 98.2 03/13/20 16:00 98.2 98 16 111/74 (86) 98 03/13/20 12:00 98.1 68 16 101/71 (81) 98 03/13/20 10:15 98.1 03/13/20 10:15 98.1 03/13/20 09:00 Room Air l Intake and Output 03/13/20 03/14/20 19:00 07:00 Intake Total 650 ml 250 ml Output Total 650 ml 530 ml Balance 0 ml -280 ml Intake Oral 650 ml 250 ml Output Urine Total 400 ml 300 ml Other 250 ml 230 ml Microbiology Date/Time Source Procedure Growth Status 03/02/20 09:40 Urine,Clean Catch Urine Culture - Final Mixed Gram Positive Organism Complete 02/24/20 10:30 Nasopharynx SARS-CoV-2 RdRp Gene Assay - Final Complete Current Medications Medications (Trade) Dose Ordered Sig/Gus Route PRN Reason Start Time Stop Time Status Last Admin Dose Admin Acetaminophen (Tylenol) 650 mg Q4H PRN ORAL Mild Pain, temp over 100.2 02/25/20 10:15 03/26/20 10:14 Acetaminophen/ Hydrocodone Bitart ([place] 5/325) 1 tab Q4H PRN ORAL Moderate Pain (Pain Scale 4-6) 03/13/20 10:15 03/20/20 10:14 03/14/20 03:18 Chlorhexidine Gluconate (Rose-Hex 2%) 1 applic DAILY@1999 TOPIC 02/24/20 20:00 05/24/20 19:59 03/13/20 19:52 Dextrose (Dextrose 50%) 25 ml Q30M PRN IV Hypoglycemia 03/03/20 12:45 06/01/20 12:44 Dextrose (Dextrose 50%) 50 ml Q30M PRN IV Hypoglycemia 03/03/20 12:45 06/01/20 12:44 Diphenhydramine HCl (Benadryl) 50 mg Q4H PRN ORAL Itching 03/02/20 12:00 04/01/20 11:59 03/10/20 18:55 Hydroxyzine HCl (Atarax) 50 mg Q6H PRN ORAL Itching 03/04/20 14:45 03/29/20 14:44 03/10/20 10:13 Hyoscyamine Sulfate (Levsin) 0.125 mg Q6H PRN ORAL cramping 03/02/20 17:30 04/01/20 17:29 03/12/20 19:30 Metoclopramide HCl (Reglan) 10 mg Q6H PRN IVP Nausea & Vomiting 03/13/20 16:00 04/09/20 13:59 Ondansetron HCl (Zofran) 4 mg Q4H PRN IVP Nausea & Vomiting 02/25/20 10:15 03/26/20 10:14 03/12/20 04:36 Oxybutynin Chloride (Ditropan) 2.5 mg Q8H PRN ORAL bladder spasms 03/05/20 09:15 04/04/20 09:14 Simethicone (Mylicon) 80 mg QID PRN ORAL Abdominal cramps, gas 02/29/20 09:30 05/29/20 09:29 02/29/20 10:00 Temazepam (RestoriL) 7.5 mg HSPRN PRN ORAL Insomnia 03/12/20 20:00 03/19/20 19:59 03/13/20 22:05 Laboratory Tests 03/14/20 04:00: White Blood Count 9.4, Red Blood Count 4.12L, Hemoglobin 11.5L, Hematocrit 35.0L , Mean Corpuscular Volume 85, Mean Corpuscular Hemoglobin 28.0, Mean Corpuscular Hemoglobin Concent 33.0, Red Cell Distribution Width 13.9, Platelet Count 514H, Mean Platelet Volume 5.7L, Neutrophils (%) (Auto) 60.7, Lymphocytes (%) (Auto) 27.1, Monocytes (%) (Auto) 7.1, Eosinophils (%) (Auto) 4.0H, Basophils (%) (Auto) 1.2, Sodium Level 141, Potassium Level 3.9, Chloride Level 108H, Carbon Dioxide Level 25, Anion Gap 8, Blood Urea Nitrogen 19H, Creatinine 0.6, Estimat Glomerular Filtration Rate > 60, Glucose Level 75, Calcium Level 8.9 Height (Feet): 5 Height (Inches): 4.00 Weight (Pounds): 145 Objective exam stable Ja Marvin MD Mar 14, 2020 07:41
[2020-03-14 08:00] VITALS: BP 94/57
--- NOTE | 2020-03-14 09:48 | General Progress Note ---
Progress Note Progress Note AVSS Eating better up to 50%. Still with intermittent nausea - using Zofran and no Reglan Abdomen soft, healed, stoma stable Urine 700cc Ileostomy 480 BUN rusing 19 Cr 0.6 Imp: Mild dehydration Plan; IV fluids today Change Zofran to ODT Anticipate discharge in AM if stable f/u labs Solomon Marcial MD Mar 14, 2020 09:48
[2020-03-14] MEDS: D5 1/2NS w/KCl 20mEq 1,000 ML IV SCH ×2 (10:51→22:30)
--- NOTE | 2020-03-14 11:46 | NUR ---
CASE MANAGEMENT:REVIEW 03/14/20 SI;MALFUNCTIONING WILLIAM ILEOSTOMY . ILEUS RESOLVED REVISION OF CONTINENT ILEOSTOMY 02/24 98.2 102 18 94/57 98% ON RA CL 108 BUN 19 IS;IVF D5W @ 75 ML/HR MED SURG STATUS DCP;FROM [facility] PL[facility]; DC ON 03/15/20 IF STABLE CASE MANAGEMENT:REVIEW 03/13/20 SI;MALFUNCTIONING WILLIAM ILEOSTOMY . ILEUS RESOLVED REVISION OF CONTINENT ILEOSTOMY 02/24 98.2 101 19 98/62 96% ON RA IS;IVF D5W @ 75 ML/HR MED SURG STATUS DCP;FROM HOME CASE MANAGEMENT:REVIEW 03/12/20 SI;MALFUNCTIONING WILLIAM ILEOSTOMY . ILEUS RESOLVED REVISION OF CONTINENT ILEOSTOMY 02/24 98.7 100 18 99/70 98% ON RA ID;IVF NS @ 75 ML/HR mED Addendum: 03/14/20 at 1157 by JOSH GREENWOOD LVN LVN MED SURG STATUS
[2020-03-14 12:00] VITALS: BP 105/70
--- NOTE | 2020-03-14 12:03 | NUR ---
INSURANCE CLINICALS/REVIEW SENT TO [facility] FX [phone]
--- NOTE | 2020-03-14 12:22 | NUR ---
RD ASSESSMENT & RECOMMENDATIONS SEE CARE ACTIVITY FOR COMPLETE ASSESSMENT DAILY ESTIMATED NEEDS: Needs based on Surgery 57.6kg 25-30 kcals/kg 8377-5161 total kcals 1-2 g protein/kg 58-115 g total protein 25-30 mL/kg 9596-9133 total fluid mLs NUTRITION DIAGNOSIS: Altered GI fxn related to ileostomy revision as evidenced by pt w/ h/o BCIR, now w/ Carlee ileo, s/p laparotomy w/ revision, early post-operative partial SBO now resolved, diet advanced to BCIR low residue diet, off TPN. CURRENT DIET:BCIR Low Residue diet PO DIET RECOMMENDATIONS: DIET PER MD ADDITIONAL RECOMMENDATIONS: 1) Obtain a standing weight as able 2) Monitor lytes, LFTs, BGs closely w/ TPN- TPN now DC'd 3) Monitor PO intake, ability to taper down TPN -> discussed food options available to help improve acceptance 4) Ensure Clear BID added
[2020-03-14 16:00] VITALS: BP 104/66
--- NOTE | 2020-03-14 18:49 | NUR ---
NURSE NOTES: ileo: 75cc brown output. UO: 550cc yellow urine output. Patient has 3-4/10 pain throughout the day, pt states [place] is effective. Pt able to ambulate independently.
--- NOTE | 2020-03-14 19:32 | NUR ---
NURSE HAND-OFF: Important Events on Shift: pain management, I&O, hydration Patient Status: stable Diet: bcir Pending Orders: n/a Pending Results/Labs:n/a Pending MD notification:n/a Latest Vital Signs: Temperature 98.0 , Pulse 87 , B/P 104 /66 , Respiratory Rate 16 , O2 SAT 98 , Room Air, O2 Flow Rate 3.0 . Vital Sign Comment: n/a Latest Bray Fall Score: 15 Fall Risk: Low Risk Safety Measures: Call light Within Reach,Side Rails x2, Bed position Low and Locked. Fall Precautions: Yellow Socks Door Sign Patient Fall Education Report given to Viktroia CASTANON.
--- NOTE | 2020-03-14 19:35 | NUR ---
NURSE NOTES: Received report & pt from LG Preciado. Pt in bed, a&ox4, in room air. No s/s of acute distress & no c/o pain. Ileo appliance intact. Surgical drsg C/D/I. PICC site intact with IVF running as ordered. Plan of care discussed.
[2020-03-14] MEDS: Dyna-Hex 2% Top Sol 2oz TOPIC SCH (19:53)
[2020-03-14 20:00] VITALS: BP 99/66
[2020-03-15] MEDS: HYDROcodone/Acetamin 5/325 tab ORAL PRN ×3 (01:20→09:23)
[2020-03-15 04:00] VITALS: BP 100/65
--- NOTE | 2020-03-15 06:30 | NUR ---
NURSE HAND-OFF: Important Events on Shift:pain management, hydration Patient Status: stable Diet: BCIR Pending Orders: D/C today @ 1015 Pending Results/Labs:none Pending MD notification:none Latest Vital Signs: Temperature 98.1 , Pulse 86 , B/P 100 /65 , Respiratory Rate 16 , O2 SAT 99 , Room Air, O2 Flow Rate 3.0 . Vital Sign Comment: none Latest Bray Fall Score: 15 Fall Risk: Low Risk Safety Measures: Call light Within Reach, Bed Alarm Zone 1, Side Rails Side Rails x2, Bed position Low and Locked. Fall Precautions: Yellow Socks Door Sign Patient Fall Education Report given to . Addendum: 03/15/20 at 0707 by Viktoria Koenig RN Report given to LG Preciado.
[2020-03-15 06:31] LABS: BASOPHILS % (AUTO) 1.2 % (0.0-2.0); EOSINOPHILS % (AUTO) 3.1 % (0.0-3.0); HEMATOCRIT 33.3 % (37.0-47.0); HEMOGLOBIN 11.2 G/DL (12.0-16.0); LYMPHOCYTES % (AUTO) 23.2 % (20.0-45.0); MEAN CORPUSCULAR VOLUME 85 FL (80-99); MONOCYTES % (AUTO) 8.7 % (1.0-10.0); NEUTROPHILS % (AUTO) 63.8 % (45.0-75.0); PLATELET COUNT 451 K/UL (150-450); RED CELL DISTRIBUTION WIDTH 13.9 % (11.6-14.8); WHITE BLOOD COUNT 7.5 K/UL (4.8-10.8)
[2020-03-15 06:48] LABS: BLOOD UREA NITROGEN 9 mg/dL (7-18); CALCIUM 8.7 MG/DL (8.5-10.1); CHLORIDE 105 MMOL/L (98-107); CREATININE 0.5 MG/DL (0.55-1.30); POTASSIUM 3.8 MMOL/L (3.5-5.1); SODIUM 138 MMOL/L (136-145)
[2020-03-15 06:57] LABS: CARBON DIOXIDE 26 MMOL/L (21-32)
--- NOTE | 2020-03-15 07:24 | NUR ---
NURSE NOTES: Patient is in bed asleep. Stable. Breathing is even and unlabored. No visible signs of distress noted. PICC patent and running IVF as ordered. Patient is in bed in locked and lowest position with call light within reach. All safety measures provided. Will continue to monitor.
[2020-03-15 08:00] VITALS: BP 108/69
--- NOTE | 2020-03-15 08:01 | Urology Progress Note ---
Assessment/Plan Assessment/Plan: 1. Urinary frequency. 2. 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 3. Pyuria history. 4. Hematuria history. monitor clinically cont low dose ditropan for now, taking PRN also Levsin may help, PRN cysto at some point electively will f/u with urologist in [place] d/w Dr. Marcial Subjective Allergies: Coded Allergies: IODINATED CONTRAST MEDIA (Verified Allergy, Severe, Shortness of Breath, 02/24/20) IODINE (Verified Allergy, Severe, Shortness of Breath, 02/24/20) MORPHINE (Verified Allergy, Intermediate, Hives, 02/24/20) SULFASALAZINE (Verified Allergy, Intermediate, Hives, 02/24/20) MESALAMINE (Verified Adverse Reaction, Mild, headache , 02/24/20) Subjective all noted, antonette reg diet variable voiding sx's hasn't asked for ditropan lately going back to [place] Objective Last 24 Hour Vital Signs Date Time Temp Pulse Resp B/P (MAP) Pulse Ox O2 Delivery O2 Flow Rate FiO2 03/15/20 07:47 Room Air 03/15/20 04:00 98.1 86 16 100/65 (77) 99 03/14/20 20:46 Room Air 03/14/20 20:00 98.0 91 18 99/66 (77) 98 03/14/20 16:00 98.0 87 16 104/66 (79) 98 03/14/20 12:00 97.3 96 18 105/70 (82) 98 03/14/20 08:51 Room Air Intake and Output 03/14/20 03/15/20 18:59 06:59 Intake Total 985 ml 995 ml Output Total 625 ml 675 ml Balance 360 ml 320 ml Intake Oral 460 ml 240 ml IV Total 525 ml 755 ml Output Urine Total 550 ml 500 ml Other 75 ml 175 ml # Voids 4 Microbiology Date/Time Source Procedure Growth Status 03/02/20 09:40 Urine,Clean Catch Urine Culture - Final Mixed Gram Positive Organism Complete 02/24/20 10:30 Nasopharynx SARS-CoV-2 RdRp Gene Assay - Final Complete Current Medications Medications (Trade) Dose Ordered Sig/Gus Route PRN Reason Start Time Stop Time Status Last Admin Dose Admin Acetaminophen (Tylenol) 650 mg Q4H PRN ORAL Mild Pain, temp over 100.2 9/17/20 10:15 03/26/20 10:14 Acetaminophen/ Hydrocodone Bitart ([place] 5/325) 1 tab Q4H PRN ORAL Moderate Pain (Pain Scale 4-6) 03/13/20 10:15 03/20/20 10:14 03/15/20 05:13 Chlorhexidine Gluconate (Rose-Hex 2%) 1 applic DAILY@2000 TOPIC 02/24/20 20:00 05/24/20 19:59 03/14/20 19:53 Dextrose (Dextrose 50%) 25 ml Q30M PRN IV Hypoglycemia 03/03/20 12:45 06/01/20 12:44 Dextrose (Dextrose 50%) 50 ml Q30M PRN IV Hypoglycemia 03/03/20 12:45 06/01/20 12:44 Diphenhydramine HCl (Benadryl) 50 mg Q4H PRN ORAL Itching 03/02/20 12:00 04/01/20 11:59 03/10/20 18:55 Hydroxyzine HCl (Atarax) 50 mg Q6H PRN ORAL Itching 03/04/20 14:45 03/29/20 14:44 03/10/20 10:13 Hyoscyamine Sulfate (Levsin) 0.125 mg Q6H PRN ORAL cramping 03/02/20 17:30 04/01/20 17:29 03/12/20 19:30 Metoclopramide HCl (Reglan) 10 mg Q6H PRN IVP Nausea & Vomiting 03/13/20 16:00 04/09/20 13:59 Ondansetron HCl (Zofran ODT) 4 mg Q4H PRN ORAL Nausea & Vomiting 03/14/20 09:45 04/13/20 09:44 Oxybutynin Chloride (Ditropan) 2.5 mg Q8H PRN ORAL bladder spasms 03/05/20 09:15 04/04/20 09:14 Simethicone (Mylicon) 80 mg QID PRN ORAL Abdominal cramps, gas 02/29/20 09:30 05/29/20 09:29 02/29/20 10:00 Temazepam (RestoriL) 7.5 mg HSPRN PRN ORAL Insomnia 03/12/20 20:00 03/19/20 19:59 03/14/20 21:58 Laboratory Tests 03/15/20 04:45: White Blood Count 7.5, Red Blood Count 3.90L, Hemoglobin 11.2L, Hematocrit 33.3L , Mean Corpuscular Volume 85, Mean Corpuscular Hemoglobin 28.6, Mean Corpuscular Hemoglobin Concent 33.6, Red Cell Distribution Width 13.9, Platelet Count 451H, Mean Platelet Volume 5.7L, Neutrophils (%) (Auto) 63.8, Lymphocytes (%) (Auto) 23.2, Monocytes (%) (Auto) 8.7, Eosinophils (%) (Auto) 3.1H, Basophils (%) (Auto) 1.2, Sodium Level 138, Potassium Level 3.8, Chloride Level 105, Carbon Dioxide Level 26, Blood Urea Nitrogen 9, Creatinine 0.5L, Estimat Glomerular Filtration Rate > 60, Glucose Level 95, Calcium Level 8.7 Height (Feet): 5 Height (Inches): 4.00 Weight (Pounds): 145 Objective exam stable Ja Marvin MD Mar 15, 2020 08:01
--- NOTE | 2020-03-15 08:06 | General Progress Note ---
Progress Note Progress Note AVSS Feeling better. Ate 50% with moderate fluid intake. Had IV fluids past 24 hours Abdomen soft, flat, well healed, stoma stable Urine 1050 Ileostomy 250 Labs all improved/stable Imp: doing well Plan: discharge - d/c PICC Instructions/supplies/limitations provided/discussed Rx Tiger 5/325 and Zofran ODT f/u 03/18 Solomon Marcial MD Mar 15, 2020 08:06
--- NOTE | 2020-03-15 08:30 | NUR ---
NURSE NOTES: PICC line removed as ordered. Catheter tip intact. Skin is c/d/i.
--- NOTE | 2020-03-15 10:34 | NUR ---
NURSE NOTES: Patient discharged home as ordered. Stable. Patient was given thorough discharge instructions by Dr. Marcial prior to discharge, all instructions reinforced by RN. Patient verbalized understanding. Patient made follow up appointment with Dr. Marcial. Patient assessed by surgeon prior to discharge. Surgical site c/d/i. Ileo bag intact. Patient has all supplies and medications from pharmacy. Patient was given medication teaching by Dr. Marcial and teaching was reinforced by RN. Patient has all belongings. No IV access. Patient assisted into uber by staff without incident.
== END 2020-03-15 10:50 | disposition home or self-care (01) | DRG 330 ==
LOC: 3E 09:50 → 2E 03-07 13:55 → 3E 03-07 14:16
PROC: 02HV33Z Insertion of Infusion Device into Superior Vena Cava, Percutaneous Approach (ICD-10-PCS; 2020-02-24)
PROC: B518ZZA Fluoroscopy of Superior Vena Cava, Guidance (ICD-10-PCS; 2020-02-24)
PROC: 0WQF0ZZ Repair Abdominal Wall, Open Approach (ICD-10-PCS; principal; 2020-02-25 07:30)
PROC: 0DBU0ZZ Excision of Omentum, Open Approach (ICD-10-PCS; principal; 2020-02-25 07:30)
PROC: 0DQB0ZZ Repair Ileum, Open Approach (ICD-10-PCS; principal; 2020-02-25 07:30)
DX: K94.13 Enterostomy malfunction (principal); K56.7 Ileus, unspecified; Z87.19 Personal history of other diseases of the digestive system; K43.5 Parastomal hernia without obstruction or gangrene; K66.8 Other specified disorders of peritoneum; R35.0 Frequency of micturition; N31.8 Other neuromuscular dysfunction of bladder; D72.829 Elevated white blood cell count, unspecified; R11.0 Nausea
CPT/HCPCS: 36415; 36569; 71045; 74018; 74019; 74176; 76937; 80048; 80053; 81001; 82607; 82746; 82962; 83540; 83550; 83735; 84100; 85007; 85025; 85610; 85730; 86850; 86900; 86901; 87086; 93005; 94003; 94150; J1815; J2370; J2405; J2710; J2765; U0002